=== PATIENT | female | born 1975 | race American Indian/Alaskan Native ===

== ENCOUNTER 2019-05-31 17:59 | Emergency (ER) | payer MEDICARE ==
--- NOTE | 2019-05-31 18:15 | Event Note ---
ED Screening Note Date of service: 05/31/19 Time: 18:14 ED Screening Note: 43 y o presents cc out of her psych meds x 3 weeks ago states she takes giodon, depakote, zoloft and risperidal, metformin and lisinopril denies SI/HI admits anxious This initial assessment/diagnostic orders/clinical plan/treatment(s) is/are subject to change based on patients health status, clinical progression and re- assessment by fellow clinical providers in the ED. Further treatment and workup at subsequent clinical providers discretion. Patient/guardian urged not to elope from the ED as their condition may be serious if not clinically assessed and managed. Initial orders include:
[2019-05-31 18:16] VITALS: BP 125/76
--- NOTE | 2019-05-31 19:32 | Emergency Department Report ---
HPI - General Chief Complaint: Medical Clearance Time Seen by Provider: 05/31/19 18:13 - HPI HPI: Room 5 The patient is a 43-year-old female presenting with chief complaint of needing medication refill. The patient states she was recently evicted from her transitional home where her medications were administered. The patient states the facility refused to give her her medications so she presents to the ED seeking prescriptions. Patient denies suicidal or homicidal ideation. The patient states she has not had any of her medication in the past 2 days. Location: [See above] Duration: [See above] Quality: [See above] Severity: [See above] Timing: [See above] Context: [See above] Modifying factors: [See above] Associated signs and symptoms: [see above] ED Past Medical Hx - Past Medical History Hx Psychiatric Treatment: Yes (Bipolar/schzophrenia) - Surgical History Past Surgical History?: No Additional Surgical History: unknown - Family History Family history: no significant - Social History Smoking Status: Current Every Day Smoker (2/3 pack per day) Substance Use Type: None (denies illicit drug use) - Medications Home Medications: Home Medications Medication Instructions Recorded Confirmed Last Taken Type risperiDONE [RisperDAL] 2 mg PO QDAY #30 tab 07/11/15 08/29/15 Unknown Rx Divalproex ER [Depakote ER] 500 mg PO BID #60 tablet 05/31/19 Unknown Rx Sertraline [Zoloft] 100 mg PO QDAY #30 tablet 05/31/19 Unknown Rx Ziprasidone [Geodon] 60 mg PO BID #60 capsule 05/31/19 Unknown Rx hydroCHLOROthiazide [Hctz] 12.5 mg PO QDAY #60 capsule 05/31/19 Unknown Rx metFORMIN [Glucophage] 500 mg PO BID #60 tablet 05/31/19 Unknown Rx risperiDONE [Risperdal] 2 mg PO QDAY #30 tablet 05/31/19 Unknown Rx ED Review of Systems ROS: Stated complaint: MEDICATION REFILL Other details as noted in HPI Constitutional: no symptoms reported Eyes: denies: eye pain ENT: denies: throat pain Respiratory: no symptoms reported Cardiovascular: denies: chest pain Endocrine: no symptoms reported Gastrointestinal: denies: abdominal pain Genitourinary: denies: dysuria Musculoskeletal: denies: back pain Neurological: denies: headache Psychiatric: denies: homicidal thoughts, suicidal thoughts Physical Exam - Physical Exam Vital Signs: Vital Signs 05/31/19 18:13 Temperature 98.5 F Pulse Rate 91 H Respiratory 18 Rate Blood Pressure 125/76 O2 Sat by Pulse 97 Oximetry Physical Exam: GENERAL: The patient is well-developed well-nourished female lying on stretcher not appearing to be in acute distress. [] HEENT: Normocephalic. Atraumatic. Extraocular motions are intact. Patient has moist mucous membranes. NECK: Supple. Trachea midline CHEST/LUNGS: Clear to auscultation. There is no respiratory distress noted. HEART/CARDIOVASCULAR: Regular. There is no tachycardia. There is no gallop rub or murmur. ABDOMEN: Abdomen is soft, nontender. Patient has normal bowel sounds. There is no abdominal distention. SKIN: There is no rash. There is no edema. There is no diaphoresis. NEURO: The patient is awake, alert, and oriented. The patient is cooperative. The patient has normal speech MUSCULOSKELETAL: There is no evidence of acute injury. ED Course Vital Signs 05/31/19 18:13 Temperature 98.5 F Pulse Rate 91 H Respiratory 18 Rate Blood Pressure 125/76 O2 Sat by Pulse 97 Oximetry ED Medical Decision Making - Differential Diagnosis medication refill Critical care attestation.: If time is entered above; I have spent that time in minutes in the direct care of this critically ill patient, excluding procedure time. ED Disposition Clinical Impression: Encounter for medication refill Disposition: DC-01 TO HOME OR SELFCARE Is pt being admited?: No Does the pt Need Aspirin: No Condition: Stable Additional Instructions: Return to the emergency department should you develop worsening symptoms, inability to tolerate food or liquids, high fever or any other concerns Prescriptions: Divalproex ER [Depakote ER] 500 mg PO BID #60 tablet Ziprasidone [Geodon] 60 mg PO BID #60 capsule metFORMIN [Glucophage] 500 mg PO BID #60 tablet hydroCHLOROthiazide [Hctz] 12.5 mg PO QDAY #60 capsule risperiDONE [Risperdal] 2 mg PO QDAY #30 tablet Sertraline [Zoloft] 100 mg PO QDAY #30 tablet Referrals: ALEXIA HAQ MD [Primary Care Provider] - 3-5 Days [facility] [Outside] - 3-5 Days Time of Disposition: 19:32
== END 2019-05-31 20:09 | disposition home or self-care (01) ==
LOC: ED 17:59
DX: F20.9 Schizophrenia, unspecified (principal); F17.210 Nicotine dependence, cigarettes, uncomplicated; F31.9 Bipolar disorder, unspecified; Z79.899 Other long term (current) drug therapy; Z88.8 Allergy status to other drugs, medicaments and biological substances; Z76.0 Encounter for issue of repeat prescription
CPT/HCPCS: 99281

== ENCOUNTER 2021-01-18 19:15 | Emergency (ER) | payer MEDICARE ==
--- NOTE | 2021-01-19 03:32 | Emergency Department Report ---
ED General Adult HPI - General Chief complaint: Psych Stated complaint: I feel unstable PUI?: No Time Seen by Provider: 01/19/21 01:51 Source: patient, EMS ( EMS documentation not available at time of chart dictation ), RN notes reviewed, old records reviewed Mode of arrival: Ambulatory Limitations: No Limitations - History of Present Illness Initial comments: The patient was evaluated in the emergency department for symptoms described in the history of present illness. He/she was evaluated in the context of the global COVID-19 pandemic, which necessitated consideration that the patient might be at risk for infection with the virus that causes COVID-19. Institutional protocols and algorithms that pertain to the evaluation of patients at risk for COVID-19 are in a state of rapid change based on information released by regulatory bodies including the CDC and federal and state organizations. These policies and algorithms were followed during the patient's care in the emergency department. Please note that these policies, procedures and recommendations changed on a rapid basis. Patient is a 45-year-old female, with a history of bipolar disorder, BMI of 47, who presents to the ER today with a request for psychiatric evaluation. She has not been on her medications for a few weeks. The patient states that she feels "unstable." She denies physical pain to myself. She denies homicidality and suicidality. She thinks she might be having hallucinations. She denies urinary symptoms. She denies recreational drug use. Apparently, the patient was in a supermarket or outside store, and contacted 911. The patient does not describe exacerbating or relieving factors to her symptomatology. -: Gradual, week(s) Improves with: none Worsens with: none Associated Symptoms: denies other symptoms - Related Data Home Medications Medication Instructions Recorded Confirmed Last Taken ARIPiprazole [Abilify Maintena] 300 mg IM QMONTH 01/19/21 01/19/21 Unknown Benztropine [Cogentin] 1 mg PO BID 01/19/21 01/19/21 Unknown lisinopriL [Lisinopril] 10 mg PO QDAY 01/19/21 01/19/21 Unknown risperiDONE [RisperDAL] 3 mg PO QDAY 01/19/21 01/19/21 Unknown Previous Rx's Medication Instructions Recorded Last Taken Type Divalproex Dr [Obed FLORES] 500 mg PO BID #30 tablet 01/19/21 Unknown Rx risperiDONE [RisperDAL] 2 mg PO BID #60 tablet 01/19/21 Unknown Rx Divalproex ER [DepaKOTE ER] 500 mg PO BID #60 tablet 01/22/21 Unknown Rx risperiDONE [RisperDAL] 1 mg PO TID #90 tablet 01/22/21 Unknown Rx Allergies Allergy/AdvReac Type Severity Reaction Status Date / Time olanzapine [From Zyprexa] Allergy Unknown Verified 01/19/21 01:57 ED Review of Systems ROS: Stated complaint: PSYCH Other details as noted in HPI Constitutional: other (Denies loss of taste and smell). denies: fever Eyes: denies: eye discharge ENT: denies: epistaxis Respiratory: denies: cough Cardiovascular: denies: chest pain, syncope Gastrointestinal: denies: abdominal pain, nausea, vomiting, hematemesis, melena, hematochezia Genitourinary: denies: dysuria Musculoskeletal: myalgia Neurological: denies: headache Psychiatric: denies: homicidal thoughts, suicidal thoughts ED Past Medical Hx - Past Medical History Previous Medical History?: Yes Hx Hypertension: Yes Hx Diabetes: Yes Hx Psychiatric Treatment: Yes (Bipolar/schzophrenia) - Surgical History Past Surgical History?: No Additional Surgical History: unknown - Social History Smoking Status: Current Some Day Smoker - Medications Home Medications: Home Medications Medication Instructions Recorded Confirmed Last Taken Type ARIPiprazole [Abilify Maintena] 300 mg IM QMONTH 01/19/21 01/19/21 Unknown History Benztropine [Cogentin] 1 mg PO BID 01/19/21 01/19/[address] [DepaKOTE DR] 500 mg PO BID #30 tablet 01/19/21 Unknown Rx lisinopriL [Lisinopril] 10 mg PO QDAY 01/19/21 01/19/21 Unknown History risperiDONE [RisperDAL] 2 mg PO BID #60 tablet 01/19/21 Unknown Rx risperiDONE [RisperDAL] 3 mg PO QDAY 01/19/21 01/19/21 Unknown History Divalproex ER [DepaKOTE ER] 500 mg PO BID #60 tablet 01/22/21 Unknown Rx risperiDONE [RisperDAL] 1 mg PO TID #90 tablet 01/22/21 Unknown Rx ED Physical Exam - General Limitations: No Limitations General appearance: alert, in no apparent distress, obese - Head Head exam: Present: atraumatic, normocephalic - Eye Eye exam: Present: normal appearance, EOMI. Absent: nystagmus - ENT ENT exam: Present: normal exam, normal orophraynx, mucous membranes moist, normal external ear exam - Neck Neck exam: Present: normal inspection, full ROM. Absent: tenderness, meningismus - Respiratory Respiratory exam: Present: normal lung sounds bilaterally. Absent: respiratory distress, wheezes, rales, rhonchi, stridor, decreased breath sounds - Cardiovascular Cardiovascular Exam: Present: regular rate, normal rhythm, normal heart sounds. Absent: bradycardia, tachycardia, irregular rhythm, systolic murmur, diastolic murmur, rubs, gallop - GI/Abdominal GI/Abdominal exam: Present: soft. Absent: distended, tenderness, guarding, rebound, rigid, pulsatile mass - Extremities Exam Extremities exam: Present: normal inspection, full ROM, pedal edema (1+ edema in the bilateral lower extremity), other (2+ pulses noted in the bilateral upper and lower extremities. There is no palpable cord. negative Homans sign. Muscular compartments are soft. The pelvis is stable.). Absent: calf tenderness - Back Exam Back exam: Present: normal inspection, full ROM. Absent: tenderness, CVA tenderness (R), CVA tenderness (L), paraspinal tenderness, vertebral tenderness - Neurological Exam Neurological exam: Present: alert, oriented X3, normal gait, other (No facial droop. Tongue midline. Extraocular movements intact bilaterally. Facial sensation intact to light touch in V1, V2, V3 distribution bilaterally. 5 and a 5 strength in 4 extremities. Sensation intact to light touch in 4 extremities.). Absent: motor sensory deficit - Psychiatric Psychiatric exam: Present: flat affect. Absent: suicidal ideation - Skin Skin exam: Present: warm, dry, intact, normal color. Absent: rash ED Course Vital Signs 01/19/21 01/19/21 01/19/21 01:30 09:22 20:59 Temperature 97.6 F 97.8 F 98 F Pulse Rate 94 H 100 H 95 H Respiratory 18 20 18 Rate Blood Pressure Blood Pressure 115/61 130/88 119/69 [Left] O2 Sat by Pulse 100 98 100 Oximetry 01/20/21 01/20/21 01/20/21 02:00 03:02 10:15 Temperature 98.0 F 97.5 F L Pulse Rate 77 91 H Respiratory 16 18 17 Rate Blood Pressure Blood Pressure 98/53 144/80 [Left] O2 Sat by Pulse 100 99 97 Oximetry 01/20/21 01/20/21 01/21/21 10:22 22:34 08:04 Temperature 97.3 F L 97.9 F Pulse Rate 91 H 87 86 Respiratory 18 20 Rate Blood Pressure 144/80 142/83 Blood Pressure 150/89 [Left] O2 Sat by Pulse 100 100 Oximetry 01/21/21 01/21/21 01/22/21 09:53 19:30 02:06 Temperature 98.3 F 97.9 F Pulse Rate 86 85 82 Respiratory 18 18 Rate Blood Pressure 150/89 Blood Pressure 94/64 112/60 [Left] O2 Sat by Pulse 99 99 Oximetry 01/22/21 08:54 Temperature 98.0 F Pulse Rate 89 Respiratory 18 Rate Blood Pressure Blood Pressure 126/85 [Left] O2 Sat by Pulse 98 Oximetry - Reevaluation(s) Reevaluation #1: 01/19/21 04:34 Differential diagnosis, including but not limited to: Obesity, BMI 47, bipolar disorder, general medical exam, medical clearance for psychiatric evaluation Assessment and plan: 45-year-old female with a flat affect, history of psychiatric disease, who presents to the ER today with a complaint of feeling unstable, and requesting a psychiatric evaluation. The patient does not present as homicidal or suicidal, I find it unlikely that the patient will be criteria for 1013 hold or involuntary hold. However, she is not been on her medication for 3 weeks. Appropriate laboratory studies have been ordered, thus far, they are unremarkable. Mental health evaluation, case management consultation requested, Covid screen ordered in case patient requires placement to a psychiatric facility. At this point in time, patient does not appear to have an immediate medical contraindication to psychiatric admission, evaluation, consultation and placemen t. However, if the psychiatry team recommends outpatient discharge, which I suspect may be a possibility, I think it would be reasonable medically to have the patient discharged and follow-up as an outpatient. The patient should follow-up with a primary care doctor, lose weight, she was snoring quite a bit when I went in to initially evaluate her, she may have a component of undiagnosed obstructive sleep apnea, which does not appear to be acutely decompensated at this time, and may benefit from outpatient sleep study. ED Medical Decision Making - Lab Data Result diagrams: 01/19/21 03:38 01/19/21 03:38 Vital Signs 01/19/21 01:30 Temperature 97.6 F Pulse Rate 94 H Respiratory 18 Rate Blood Pressure 115/61 [Left] O2 Sat by Pulse 100 Oximetry Lab Results 01/19/21 01/19/21 01/19/21 Range/Units 03:38 03:38 03:38 WBC 6.2 (4.5-11.0) K/mm3 RBC 4.22 (3.65-5.03) M/mm3 Hgb 11.2 (10.1-14.3) gm/dl Hct 33.9 (30.3-42.9) % MCV 80 (79-97) fl MCH 27 L (28-32) pg MCHC 33 (30-34) % RDW 15.8 H (13.2-15.2) % Plt Count 194 (140-440) K/mm3 Sodium 136 L (137-145) mmol/L Potassium 4.1 (3.6-5.0) mmol/L Chloride 100.8 (98-107) mmol/L Carbon Dioxide 31 H (22-30) mmol/L Anion Gap 8 mmol/L BUN 11 (7-17) mg/dL Creatinine 0.7 (0.6-1.2) mg/dL Estimated GFR > 60 ml/min BUN/Creatinine Ratio 16 % Glucose 94 (65-100) mg/dL Calcium 8.6 (8.4-10.2) mg/dL Total Bilirubin 0.40 (0.1-1.2) mg/dL AST 30 (5-40) units/L ALT 24 (7-56) units/L Alkaline Phosphatase 68 (35-129) units/L Total Protein 5.9 L (6.3-8.2) g/dL Albumin 3.2 L (3.9-5) g/dL Albumin/Globulin Ratio 1.2 % HCG, Quant < 2 (0-4) mIU/mL Salicylates (2.8-20.0) mg/dL Acetaminophen (10.0-30.0) ug/mL Valproic Acid (50-100) ug/mL Plasma/Serum Alcohol (0-0.07) % 04/21/21 04/21/21 04/21/21 Range/Units 03:38 03:38 03:38 WBC (4.5-11.0) K/mm3 RBC (3.65-5.03) M/mm3 Hgb (10.1-14.3) gm/dl Hct (30.3-42.9) % MCV (79-97) fl MCH (28-32) pg MCHC (30-34) % RDW (13.2-15.2) % Plt Count (140-440) K/mm3 Sodium (137-145) mmol/L Potassium (3.6-5.0) mmol/L Chloride (98-107) mmol/L Carbon Dioxide (22-30) mmol/L Anion Gap mmol/L BUN (7-17) mg/dL Creatinine (0.6-1.2) mg/dL Estimated GFR ml/min BUN/Creatinine Ratio % Glucose (65-100) mg/dL Calcium (8.4-10.2) mg/dL Total Bilirubin (0.1-1.2) mg/dL AST (5-40) units/L ALT (7-56) units/L Alkaline Phosphatase (35-129) units/L Total Protein (6.3-8.2) g/dL Albumin (3.9-5) g/dL Albumin/Globulin Ratio % HCG, Quant (0-4) mIU/mL Salicylates < 0.3 L (2.8-20.0) mg/dL Acetaminophen 5.0 L (10.0-30.0) ug/mL Valproic Acid < 2.8 L (50-100) ug/mL Plasma/Serum Alcohol < 0.01 (0-0.07) % Critical care attestation.: If time is entered above; I have spent that time in minutes in the direct care of this critically ill patient, excluding procedure time. ED Disposition Clinical Impression: BMI 45.0-49.9, adult, General medical exam, Bipolar 1 disorder, Medical clearance for psychiatric admission, COVID-19 Disposition: DC/TX-65 PSY HOSP/PSY UNIT Is pt being admited?: No Does the pt Need Aspirin: No Condition: Good Instructions: Managing Bipolar Disorder, COVID-19 Additional Instructions: We recommend that the patient lose weight, diet and exercise. We recommend that the patient follow-up with her primary care doctor, sleep specialist or personal attendant within the next month for evaluation for outpatient sleep study. Undiagnosed obstructive sleep apnea is a risk factor for heart attack, stroke, disability, paralysis, loss of quality of life. For the patient's convenience, we have listed local personal attendant for sleep study. Professional and Agency Contacts To help [facility] (23/04) MD Crisis Line: Suicide Prevention Line: Crisis Text Line: Text START to 375887 Emergency: 911 Outpatient COMMUNITY Behavioral Health Resources: [facility]: [facility] [address] [place], [place] [address] [place]: [facility] [address] [place] [address] Sunday thru Sunday - 8am - 5pm Call to schedule an assessment for mental health and substance abuse prog gisele AM[facility]: [facility] Address: [address] [place] [address] Sunday thru Sunday- 7am-2pm [facility] Address: [address] [place] [address] Sunday thru Sunday: 8:30AM-5PM HOMELESS RESOURCES: [facility] NEED HELP? If you are in need of help or know someone who does, please contact us at [email or web address] call , or come to our offices at [address] [place] [address], Sunday-Sunday beginning at 8AM. [facility] Males only Admission at 7am Sun to Sun Address: [address] [place] [address] Client Engagement [phone] Regular program admission occurs Sunday through Sunday at 7:00 amand operates on a first come, first serve basis.Because we cant anticipate program availability in advance andprogram spots are in high demand, we recommend arriving early. Space fills up fast! Next steps can include: Assignment to a [facility] program bed Connection to and placement in a partner program, or Referral to a partner agency [place]: EMILIA Gan Address: [address] [place] [address] How do I join the [facility] housing program? Our housing programs are offered based on availability. If you are looking to participate in our housing program, simply call [phone] to find out if we have available space. Since we do receive many calls, please allow up to 48 hours for one of our housing specialists to return your call. If we do not have vacancies, we suggest callingthe [facility] hotline at [facility] for additional housing options. [facility] [place] Admission at 4:30pm daily Address: [place] [address] [facility] Services Admission from 8am to 10am Daily No intake until 09/27/20 Address: [place] [address] [facility] WOMEN and FAMILY Admission Address: [place] [address]: [address] [DepaKORIZWAN FLORES] 500 mg PO BID #30 tablet Divalproex ER [DepaKOTE ER] 500 mg PO BID #60 tablet risperiDONE [RisperDAL] 1 mg PO TID #90 tablet risperiDONE [RisperDAL] 2 mg PO BID #60 tablet Referrals: SUKI BETANCOURT MD [Staff Physician] - as needed
[2021-01-19 03:51] LABS: Hematocrit 33.9 % (30.3-42.9); Hemoglobin 11.2 gm/dl (10.1-14.3); Mean Corpuscular HGB Conc 33 % (30-34); Mean Corpuscular Volume 80 fl (79-97); Platelet Count 194 K/mm3 (140-440); Red Blood Count 4.22 M/mm3 (3.65-5.03); Red Cell Distribution Width 15.8 % (13.2-15.2)
[2021-01-19 04:15] LABS: Alanine Aminotransferase 24 units/L (7-56); Albumin 3.2 g/dL (3.9-5); Blood Urea Nitrogen 11 mg/dL (7-17); Calcium 8.6 mg/dL (8.4-10.2); Hemolysis Index 3
[2021-01-19 04:25] LABS: BUN/Creatinine Ratio 16
--- NOTE | 2021-01-19 09:25 | Consultation ---
History of Present Illness - Reason for Consult Consult date: 01/19/21 Reason for consult: MHE Requesting physician: NORAH HOGAN - History of Present Psychiatric Illness Per ED Provider: Patient is a 45-year-old female, with a history of bipolar disorder, BMI of 47, who presents to the ER today with a request for psychiatric evaluation. She has not been on her medications for a few weeks. The patient states that she feels "unstable." She denies physical pain to myself. She denies homicidality and suicidality. She thinks she might be having hallucinations. She denies urinary symptoms. She denies recreational drug use. Apparently, the patient was in a supermarket or outside store, and contacted 911. The patient does not describe exacerbating or relieving factors to her symptomatology. PSYCH HPI Patient is a single currently unemployed and homeless -[place] female who states that she is to [place], with past psychiatric history of bipolar and ADHD who presented to the the ED because of not knowing what to do over to go. Patient reports she just got released from nursing home over previous situation at her previous place of residence and that she used to live with her brother, and she is unable to go back and she did not know what to do her verti go so she came here. Patient states that she wants to go to [facility] and also get restarted on her medications. Patient denies being suicidal homicidal_denies hearing voices. Patient endorses having family members here in [place] but does not want anything to do with them. PAST PSYCHIATRIC HISTORY Diagnoses: Bipolar ADHD Suicide attempts or Self-harm behavior: None reported Prior psychiatric hospitalizations: yes Substance Abuse history: None reported Previous psychiatric medications tried: Depakote, Risperdol and Abilify Outpatient treatment: None reported PAST MEDICAL HISTORY: None reported Family Psychiatric History: None reported or documented SOCIAL HISTORY Marital Status: Single Living Arrangements: Homeless Employment Status: Unemployed Access to guns/weapons: None reported Education: [employer] [facility] [place] History of Abuse: None reported Legal History: None reported REVIEW OF SYSTEMS Constitutional: Negative for weight loss ENT: Negative for stridor Respiratory: Negative for cough or hemoptysis All other systems reviewed and are negative MENTAL STATUS EXAMINATION General Appearance and Behavior: Age appropriate, good hygiene, wearing appropriate clothes, good eye contact, cooperative polite with questioning. Cooperation: Participating/engaged Psychomotor Behavior: unremarkable and within normal limits Mood: Good Affect and affective range: congruent with mood Thought Process: Fluent/Logical, Thought Content: Within reality, Speech: Normal volume, Regular rate and rhythm, Intellectual Functioning: Average Suicidal Ideation: Denies SI Homicidal Ideation: Denies HI Impulse Control: Unimpaired Insight and Judgment: Normal insight and judgment, Memory: Normal, Attention: Normal, Orientation: Alert, oriented, Assessment and Plan - Psychiatric problem (1) Bipolar 1 disorder Current Visit: Yes Status: Acute MEDICATIONS: Risks, benefits and alternatives of medications discussed with the patient, questions answered and consent obtained from patient. PSYCHOTHERAPY: Supportive psychotherapy provided MEDICAL: Per primary team DELIRIUM PRECAUTIONS: Please re-orient patient frequently, keep lights on during the day, and minimize benzodiazepines and opiates as these medications could worsen patient's confusion. 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 Case discussed with Dr. Jordan who agrees with current disposition LEGAL STATUS: 1013 FOLLOW-UP: Will follow Thank you for the consult. Please contact with any questions and/or concerns. Medications and Allergies Allergies Allergy/AdvReac Type Severity Reaction Status Date / Time olanzapine [From Zyprexa] Allergy Unknown Verified 01/19/21 01:57 Home Medications Medication Instructions Recorded Confirmed Last Taken Type ARIPiprazole [Abilify Maintena] 300 mg IM QMONTH 01/19/21 01/19/21 Unknown History Benztropine [Cogentin] 1 mg PO BID 01/19/21 01/19/[address] [DepaKOTE DR] 500 mg PO BID #30 tablet 01/19/21 Unknown Rx Divalproex ER [DepaKOTE ER] 500 mg PO BID 01/19/21 01/19/21 Unknown History lisinopriL [Lisinopril] 10 mg PO QDAY 01/19/21 01/19/21 Unknown History risperiDONE [RisperDAL] 2 mg PO BID #60 tablet 01/19/21 Unknown Rx risperiDONE [RisperDAL] 3 mg PO QDAY 01/19/21 01/19/21 Unknown History Mental Status Exam - Vital signs Last Vital Signs Temp 97.8 F 01/19/21 09:22 Pulse 100 H 01/19/21 09:22 Resp 20 01/19/21 09:22 BP 130/88 01/19/21 09:22 Pulse Ox 98 01/19/21 09:22 Results Result Diagrams: 01/19/21 03:38 01/19/21 03:38 Abnormal lab results 01/19/21 01/19/21 01/19/21 Range/Units 03:38 03:38 03:38 MCH 27 L (28-32) pg RDW 15.8 H (13.2-15.2) % Sodium 136 L (137-145) mmol/L Carbon Dioxide 31 H (22-30) mmol/L Total Protein 5.9 L (6.3-8.2) g/dL Albumin 3.2 L (3.9-5) g/dL Salicylates < 0.3 L (2.8-20.0) mg/dL Acetaminophen (10.0-30.0) ug/mL Valproic Acid < 2.8 L (50-100) ug/mL 01/19/21 Range/Units 03:38 MCH (28-32) pg RDW (13.2-15.2) % Sodium (137-145) mmol/L Carbon Dioxide (22-30) mmol/L Total Protein (6.3-8.2) g/dL Albumin (3.9-5) g/dL Salicylates (2.8-20.0) mg/dL Acetaminophen 5.0 L (10.0-30.0) ug/mL Valproic Acid (50-100) ug/mL All other labs normal. Assessment and Plan - Psychiatric problem (1) Bipolar 1 disorder Current Visit: Yes Status: Acute
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
[2021-01-19] MEDS: LISINOPRIL 10 MG TAB PO SCH (11:16)
[2021-01-19] MEDS: risperiDONE 1 MG TAB PO SCH ×2 (15:00→22:16)
[2021-01-19] MEDS: VALPROIC ACID 250 MG CAP PO SCH ×2 (15:00→22:16)
[2021-01-20 04:57] LABS: Bilirubin,Urine NEG (Negative); Blood,Urine NEG (Negative); Color,Urine Yellow (Yellow); Protein,Urine <15 mg/dL mg/dL (Negative); WBC,Urine < 1.0 /HPF (0.0-6.0)
[2021-01-20 05:13] LABS: Amphetamine Screen,Urine Negative; Benzodiazepines Screen,Urine Negative; Cannabinoid Screen,Urine Negative; Cocaine Screen,Urine Negative; Methadone Screen,Urine Negative; Opiate Screen,Urine Negative
[2021-01-20] MEDS: LISINOPRIL 10 MG TAB PO SCH (10:22)
[2021-01-20] MEDS: risperiDONE 1 MG TAB PO SCH ×2 (10:22→22:47)
[2021-01-20] MEDS: VALPROIC ACID 250 MG CAP PO SCH ×2 (10:22→22:47)
[2021-01-20] MEDS ORDERED: ZIPRASIDONE MESYLATE 20 MG VIAL IM ONE (11:00)
[2021-01-20] MEDS ORDERED: WATER FOR INJ Sterile (PF) 10 ML ONE (11:03)
--- NOTE | 2021-01-20 11:51 | Event Note ---
S: "I I am okay." O: Patient is hyperverbal, reading the Bible. Talking to persons not present A: acute etta with psychosis, hx of bipolar disorder, HTN P: Awaiting treatment recommendations mental health team
--- NOTE | 2021-01-21 09:34 | Progress Note ---
Subjective - Reason for Consult Consult date: 01/21/21 Reason for consult: psychosis - Chief Complaint Chief complaint: Per Nurse Note: talking up in room , talking to herself, pt responding to internal stimuli The patient was seen today, she is a/o x 3. She says she's been off her meds. She is inquiring about a intermediate. The patient denies SI/HI or hallucinations of any kind, but as I'm leaving another patient's room, she is singing out loud and talking to herself. When asking the patient was she okay, she replies "yes, I'm talking to the [place] watching over me." She continues to talk to herself. REVIEW OF SYSTEMS Constitutional: Negative for weight loss ENT: Negative for stridor Respiratory: Negative for cough or hemoptysis All other systems reviewed and are negative MENTAL STATUS EXAMINATION General Appearance and Behavior: Age appropriate, good hygiene, wearing appropriate clothes, good eye contact, cooperative polite with questioning. Cooperation: Participating/engaged Psychomotor Behavior: unremarkable and within normal limits Mood: Good Affect and affective range: congruent with mood Thought Process: illogical Thought Content: responding to internal stimuli Speech: Normal volume, Regular rate and rhythm, Intellectual Functioning: Average Suicidal Ideation: Denies SI Homicidal Ideation: Denies HI Hallucinations: A/V Delusions: Yes Impulse Control: Unimpaired Insight and Judgment: Normal insight and judgment, Memory: Normal, Attention: Normal, Orientation: Alert, oriented, Assessment and Plan (1) Bipolar 1 disorder Current Visit: Yes Status: Acute TREATMENT MEDICATIONS: Increase Risperidone 1mg po TID Risks, benefits and alternatives of medications discussed with the patient, questions answered and consent obtained from patient. PSYCHOTHERAPY: Supportive psychotherapy provided MEDICAL: Per primary team DELIRIUM PRECAUTIONS: Please re-orient patient frequently, keep lights on during the day, and minimize benzodiazepines and opiates as these medications could worsen patient's confusion. 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 Case discussed with Dr. Jordan who agrees with current disposition LEGAL STATUS: 1013 FOLLOW-UP: Will follow Thank you for the consult. Please contact with any questions and/or concerns. Mental Status Exam - Vital signs Last Vital Signs Temp 97.9 F 01/21/21 08:04 Pulse 86 01/21/21 08:04 Resp 20 01/21/21 08:04 BP 150/89 01/21/21 08:04 Pulse Ox 100 01/21/21 08:04
[2021-01-21] MEDS: VALPROIC ACID 250 MG CAP PO SCH ×2 (09:43→21:54)
[2021-01-21] MEDS: LISINOPRIL 10 MG TAB PO SCH ×2 (09:44→09:53)
[2021-01-21] MEDS: risperiDONE 1 MG TAB PO SCH ×3 (09:46→21:00)
--- NOTE | 2021-01-21 10:45 | Event Note ---
S: "I am okay." O: Patient is calm. Resting. Stable vital signs A: acute etta with psychosis, hx of bipolar disorder, HTN P: Awaiting treatment recommendations mental health team
[2021-01-22 08:55] VITALS: BP 126/85
[2021-01-22] MEDS: risperiDONE 1 MG TAB PO SCH (09:00)
--- NOTE | 2021-01-22 10:14 | Progress Note ---
Subjective - Reason for Consult Consult date: 01/22/21 Reason for consult: psychosis - Chief Complaint Chief complaint: Per Nurse Note: 0700 Received report from Becky RN, pt resting quietly on recliner, resp even and non labored, no acute distress noted, able to make needs known, no complaints of voiced at this time, awake and alert, ambulates as needed to restroom, Covid + pt, isolation protocol in place. The patient was seen today, she is a/o x 3. She is in her room watching t.v. The patient says she's doing "good now that she's on her meds." She denies hallucinations. She states "I talk to myself sometimes because I'm bored in here." She says "I really do feel a lot better." She denies SI/HI. REVIEW OF SYSTEMS Constitutional: Negative for weight loss ENT: Negative for stridor Respiratory: Negative for cough or hemoptysis All other systems reviewed and are negative MENTAL STATUS EXAMINATION General Appearance and Behavior: Age appropriate, good hygiene, wearing appropriate clothes, good eye contact, cooperative polite with questioning. Cooperation: Participating/engaged Psychomotor Behavior: unremarkable and within normal limits Mood: Good Affect and affective range: congruent with mood Thought Process: goal oriented Thought Content: responding to internal stimuli Speech: Normal volume, Regular rate and rhythm, Intellectual Functioning: Average Suicidal Ideation: Denies SI Homicidal Ideation: Denies HI Hallucinations: Denies Delusions: None elicited Impulse Control: Unimpaired Insight and Judgment: Normal insight and judgment, Memory: Normal, Attention: Normal, Orientation: Alert, oriented, Assessment and Plan (1) Bipolar 1 disorder Current Visit: Yes Status: Acute TREATMENT d/c 1013 MEDICATIONS: Risperidone 1mg po TID, Depakote ER 500mg BID Risks, benefits and alternatives of medications discussed with the patient, questions answered and consent obtained from patient. PSYCHOTHERAPY: Supportive psychotherapy provided MEDICAL: Per primary team DELIRIUM PRECAUTIONS: Please re-orient patient frequently, keep lights on during the day, and minimize benzodiazepines and opiates as these medications could worsen patient's confusion. 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 Case discussed with Dr. Jordan who agrees with current disposition FOLLOW-UP: will sign off Thank you for the consult. Please contact with any questions and/or concerns. Mental Status Exam - Vital signs Last Vital Signs Temp 98.0 F 01/22/21 08:54 Pulse 89 01/22/21 08:54 Resp 18 01/22/21 08:54 BP 126/85 01/22/21 08:54 Pulse Ox 98 01/22/21 08:54
--- NOTE | 2021-01-22 10:24 | Event Note ---
Date: 01/22/21 Vital Signs - 24 hr 01/21/21 01/22/21 01/22/21 19:30 02:06 08:54 Temperature 98.3 F 97.9 F 98.0 F Pulse Rate 85 82 89 Respiratory 18 18 18 Rate Blood Pressure 94/64 112/60 126/85 [Left] O2 Sat by Pulse 99 99 98 Oximetry This patient was seen ambulatory in room #15. She was standing quietly watching television. The patient initially was placed on a 1013 and made in ED hold secondary to acute psychosis from her bipolar disorder. Her labs have been reviewed thus far and only remarkable for being positive for COVID-19. She appears asymptomatic. The positive test was found on 01/19/2021. A repeat test has been ordered for today. Her vital signs for the past 24 hours are listed a kalina and appear reassuring including being afebrile and no hypoxia. I spoke with the psychiatric nurse who says that there have been no significant complaints or events either this morning or signed out to her from overnight. She has already been seen by the psychiatric team today and it is the recommendation to continue the 1013 and ED hold for inpatient stabilization. It appears that her home medications have been reconciled and she is on psychiatric medications as per the psychiatric team.
[2021-01-22] MEDS: VALPROIC ACID 250 MG CAP PO SCH (11:13)
[2021-01-22] MEDS: LISINOPRIL 10 MG TAB PO SCH (11:14)
[2021-01-22] MEDS ORDERED: LORazepam 2 MG/ML VIAL IM PRN (16:24)
[2021-01-22] MEDS ORDERED: ACETAMINOPHEN 325 MG TAB PO PRN (16:24)
[2021-01-22] MEDS ORDERED: ONDANSETRON 4 MG ODT TAB PO PRN (16:24)
[2021-01-23] MEDS ORDERED: LISINOPRIL 10 MG TAB PO SCH (10:00)
== END 2021-01-22 12:57 ==
LOC: ED 19:15 → EEVIPCON 19:15 → ED 01-22 12:57
DX: U07.1 COVID-19 (principal); F25.0 Schizoaffective disorder, bipolar type; Z68.42 Body mass index [BMI] 45.0-49.9, adult; Z00.00 Encounter for general adult medical examination without abnormal findings; Z04.6 Encounter for general psychiatric examination, requested by authority; I10 Essential (primary) hypertension; E11.9 Type 2 diabetes mellitus without complications; F17.200 Nicotine dependence, unspecified, uncomplicated; Z79.899 Other long term (current) drug therapy
CPT/HCPCS: 36415; 80053; 80164; 80178; 84702; 85027; 99284; J3486; U0003; 80320; G0480

== ENCOUNTER 2021-02-03 16:53 | Emergency (ER) | payer MEDICARE ==
[2021-02-03 18:03] LABS: Basophils % (Auto) 0.4 % (0.0-1.8); Eosinophils % (Auto) 0.3 % (0.0-4.3); Hemoglobin 11.4 gm/dl (10.1-14.3); Lymphocytes # (Auto) 1.9 K/mm3 (1.2-5.4); Lymphocytes % (Auto) 22.6 % (13.4-35.0); Mean Corpuscular HGB Conc 32 % (30-34); Mean Corpuscular Volume 80 fl (79-97); Monocytes # (Auto) 0.9 K/mm3 (0.0-0.8); Monocytes % (Auto) 10.4 % (0.0-7.3); Platelet Count 205 K/mm3 (140-440); Red Blood Count 4.36 M/mm3 (3.65-5.03); Red Cell Distribution Width 15.7 % (13.2-15.2)
[2021-02-03 18:16] LABS: Blood Urea Nitrogen 8 mg/dL (7-17); Calcium 9.1 mg/dL (8.4-10.2); Hemolysis Index 8
[2021-02-03 18:17] LABS: BUN/Creatinine Ratio 11
--- NOTE | 2021-02-03 19:17 | Emergency Department Report ---
ED General Adult HPI - General Chief complaint: Psych Stated complaint: MENTAL HEALTH Time Seen by Provider: 02/03/21 19:12 Source: patient Mode of arrival: Ambulatory Limitations: Other - History of Present Illness Initial comments: The patient presents to the emergency department for not feeling well. Patient was dropped off by her brother who is no longer in the emergency department. Upon me entering the room the patient would not answer questions or speak with me. Patient told the nurse that she takes Depakote but not the diagnosis that requires it. Patient was recently seen for psychiatric issues. -: unknown Consistency: constant Improves with: none Worsens with: none Associated Symptoms: denies other symptoms Treatments Prior to Arrival: none - Related Data Home Medications Medication Instructions Recorded Confirmed Last Taken ARIPiprazole [Abilify Maintena] 300 mg IM QMONTH 01/19/21 01/19/21 Unknown Benztropine [Cogentin] 1 mg PO BID 01/19/21 01/19/21 Unknown lisinopriL [Lisinopril] 10 mg PO QDAY 01/19/21 01/19/21 Unknown risperiDONE [RisperDAL] 3 mg PO QDAY 01/19/21 01/19/21 Unknown Previous Rx's Medication Instructions Recorded Last Taken Type Divalproex Dr [DepaKOTE DR] 500 mg PO BID #30 tablet 01/19/21 Unknown Rx risperiDONE [RisperDAL] 2 mg PO BID #60 tablet 01/19/21 Unknown Rx Divalproex ER [DepaKOTE ER] 500 mg PO BID #60 tablet 01/22/21 Unknown Rx risperiDONE [RisperDAL] 1 mg PO TID #90 tablet 01/22/21 Unknown Rx Allergies Allergy/AdvReac Type Severity Reaction Status Date / Time olanzapine [From Zyprexa] Allergy Unknown Verified 01/19/21 01:57 ED Review of Systems ROS: Stated complaint: MENTAL HEALTH Other details as noted in HPI Comment: Unobtainable due to pts medical conditions (The patient refuses to answer questions) ED Past Medical Hx - Past Medical History Previous Medical History?: Yes Hx Hypertension: Yes Hx Diabetes: Yes Hx Psychiatric Treatment: Yes (Bipolar/schzophrenia) - Surgical History Additional Surgical History: unknown - Social History Smoking Status: Never Smoker Substance Use Type: None - Medications Home Medications: Home Medications Medication Instructions Recorded Confirmed Last Taken Type ARIPiprazole [Abilify Maintena] 300 mg IM QMONTH 01/19/21 01/19/21 Unknown History Benztropine [Cogentin] 1 mg PO BID 01/19/21 01/19/[address] [DepaKOTE DR] 500 mg PO BID #30 tablet 01/19/21 Unknown Rx lisinopriL [Lisinopril] 10 mg PO QDAY 01/19/21 01/19/21 Unknown History risperiDONE [RisperDAL] 2 mg PO BID #60 tablet 01/19/21 Unknown Rx risperiDONE [RisperDAL] 3 mg PO QDAY 01/19/21 01/19/21 Unknown History Divalproex ER [DepaKOTE ER] 500 mg PO BID #60 tablet 01/22/21 Unknown Rx risperiDONE [RisperDAL] 1 mg PO TID #90 tablet 01/22/21 Unknown Rx ED Physical Exam - General Limitations: Other General appearance: alert, in no apparent distress - Head Head exam: Present: atraumatic, normocephalic - Eye Eye exam: Present: normal appearance, PERRL - ENT ENT exam: Present: mucous membranes moist - Respiratory Respiratory exam: Present: normal lung sounds bilaterally. Absent: respiratory distress - Cardiovascular Cardiovascular Exam: Present: regular rate, normal rhythm - GI/Abdominal GI/Abdominal exam: Present: soft. Absent: distended, tenderness - Neurological Exam Neurological exam: Present: alert, other (The patient would not cooperate with neurological exam) - Psychiatric Psychiatric exam: Present: other (The patient would not cooperate with a psychiatric exam) - Skin Skin exam: Present: warm, dry, intact, normal color. Absent: rash ED Course Vital Signs 02/03/21 17:21 Temperature 98.7 F Pulse Rate 102 H Respiratory 22 Rate Blood Pressure 156/79 O2 Sat by Pulse 98 Oximetry ED Medical Decision Making - Lab Data Result diagrams: 02/03/21 17:43 02/03/21 17:43 Lab Results 02/03/21 02/03/21 02/03/21 Range/Units 17:43 17:43 17:43 WBC (4.5-11.0) K/mm3 RBC (3.65-5.03) M/mm3 Hgb (10.1-14.3) gm/dl Hct (30.3-42.9) % MCV (79-97) fl MCH (28-32) pg MCHC (30-34) % RDW (13.2-15.2) % Plt Count (140-440) K/mm3 Lymph % (Auto) (13.4-35.0) % Barton % (Auto) (0.0-7.3) % Eos % (Auto) (0.0-4.3) % Baso % (Auto) (0.0-1.8) % Lymph # (Auto) (1.2-5.4) K/mm3 Barton # (Auto) (0.0-0.8) K/mm3 Eos # (Auto) (0.0-0.4) K/mm3 Baso # (Auto) (0.0-0.1) K/mm3 Seg Neutrophils % (40.0-70.0) % Seg Neutrophils # (1.8-7.7) K/mm3 Sodium 137 (137-145) mmol/L Potassium 3.6 (3.6-5.0) mmol/L Chloride 102.2 (98-107) mmol/L Carbon Dioxide 26 (22-30) mmol/L Anion Gap 12 mmol/L BUN 8 (7-17) mg/dL Creatinine 0.7 (0.6-1.2) mg/dL Estimated GFR > 60 ml/min BUN/Creatinine Ratio 11 % Glucose 117 H (65-100) mg/dL Calcium 9.1 (8.4-10.2) mg/dL Salicylates < 0.3 L (2.8-20.0) mg/dL Acetaminophen 5.0 L (10.0-30.0) ug/mL Valproic Acid (50-100) ug/mL Plasma/Serum Alcohol (0-0.07) % 02/03/21 02/03/21 02/03/21 Range/Units 17:43 17:43 19:21 WBC 8.2 (4.5-11.0) K/mm3 RBC 4.36 (3.65-5.03) M/mm3 Hgb 11.4 (10.1-14.3) gm/dl Hct 35.0 (30.3-42.9) % MCV 80 (79-97) fl MCH 26 L (28-32) pg MCHC 32 (30-34) % RDW 15.7 H (13.2-15.2) % Plt Count 205 (140-440) K/mm3 Lymph % (Auto) 22.6 (13.4-35.0) % Barton % (Auto) 10.4 H (0.0-7.3) % Eos % (Auto) 0.3 (0.0-4.3) % Baso % (Auto) 0.4 (0.0-1.8) % Lymph # (Auto) 1.9 (1.2-5.4) K/mm3 Barton # (Auto) 0.9 H (0.0-0.8) K/mm3 Eos # (Auto) 0.0 (0.0-0.4) K/mm3 Baso # (Auto) 0.0 (0.0-0.1) K/mm3 Seg Neutrophils % 66.3 (40.0-70.0) % Seg Neutrophils # 5.5 (1.8-7.7) K/mm3 Sodium (137-145) mmol/L Potassium (3.6-5.0) mmol/L Chloride (98-107) mmol/L Carbon Dioxide (22-30) mmol/L Anion Gap mmol/L BUN (7-17) mg/dL Creatinine (0.6-1.2) mg/dL Estimated GFR ml/min BUN/Creatinine Ratio % Glucose (65-100) mg/dL Calcium (8.4-10.2) mg/dL Salicylates (2.8-20.0) mg/dL Acetaminophen (10.0-30.0) ug/mL Valproic Acid < 2.8 L (50-100) ug/mL Plasma/Serum Alcohol < 0.01 (0-0.07) % - Medical Decision Making ED hold placed Awaiting urinalysis for medical clearance Awaiting mental health evaluation Critical care attestation.: If time is entered above; I have spent that time in minutes in the direct care of this critically ill patient, excluding procedure time. ED Disposition Clinical Impression: Schizophrenia Disposition: [id number]/[id number] PSY HOSP/PSY UNIT Is pt being admited?: No Does the pt Need Aspirin: No Condition: Stable Referrals: PRIMARY CARE, [Primary Care Provider] - 3-5 Days
[2021-02-03] MEDS ORDERED: ZIPRASIDONE MESYLATE 20 MG VIAL IM ONE (23:01)
[2021-02-03] MEDS ORDERED: WATER FOR INJ Sterile (PF) 10 ML ONE (23:01)
[2021-02-04] MEDS ORDERED: SODIUM CHLORIDE 0.9% 1000 ML 1,000 ML ONE (06:09)
--- NOTE | 2021-02-04 09:10 | Consultation ---
History of Present Illness - Reason for Consult Consult date: 02/04/21 Reason for consult: MHE Requesting physician: VICENTE FLEMING - History of Present Psychiatric Illness Per ED Provider: The patient presents to the emergency department for not feeling well. Patient was dropped off by her brother who is no longer in the emergency department. Upon me entering the room the patient would not answer questions or speak with me. Patient told the nurse that she takes Depakote but not the diagnosis that requires it. Patient was recently seen for psychiatric issues. PSYCH HPI Patient is a 45 year old single currently unemployed -[place] female who resides with family with PMHx of Bipolar, ADHD who was dropped off to the emergency room by family without supporting HPI. This AM patient is alert and awake but unresponsive to commands, and presents with a flat affect, currenlty in isolation. Off note, patient was recently diagnosed with covid during her last ED psych encounter, prior to discharge, she was alert and oriented x4 without any psychiatric episodes or behv disturbances. PAST PSYCHIATRIC HISTORY Diagnoses: Bipolar ADHD Suicide attempts or Self-harm behavior: None reported Prior psychiatric hospitalizations: yes Substance Abuse history: None reported Previous psychiatric medications tried: Depakote, Risperdol and Abilify Outpatient treatment: None reported PAST MEDICAL HISTORY: None reported Family Psychiatric History: None reported or documented SOCIAL HISTORY Marital Status: Single Living Arrangements: Homeless Employment Status: Unemployed Access to guns/weapons: None reported Education: [employer] – [place] History of Abuse: None reported Legal History: None reported REVIEW OF SYSTEMS Constitutional: Negative for weight loss ENT: Negative for stridor Respiratory: Negative for cough or hemoptysis All other systems reviewed and are negative MENTAL STATUS EXAMINATION General Appearance and Behavior: Age appropriate, good hygiene, wearing appropriate clothes, good eye contact, uncooperative with questioning. Cooperation: Withdrawn Psychomotor Behavior: unremarkable and within normal limits Mood: Neutral Affect and affective range: Flat Thought Process:N/A Thought Content: N/A Speech: Normal volume, Regular rate and rhythm Intellectual Functioning: N/A Suicidal Ideation: N/A l Homicidal Ideation: N/A Impulse Control: Impaired Insight and Judgment: Impaired Memory: N/A Attention: Normal, Orientation: Alert Assessment and Plan - Psychiatric problem (1) Bipolar 1 disorder Current Visit: Yes Status: Acute MEDICATIONS: Hold off antipsychotics, will start patient on Ativan Q4hrs up to 3 doses. Risks, benefits and alternatives of medications discussed with the patient, questions answered and consent obtained from patient. PSYCHOTHERAPY: Supportive psychotherapy provided MEDICAL: Per primary team DELIRIUM PRECAUTIONS: Please re-orient patient frequently, keep lights on during the day, and minimize benzodiazepines and opiates as these medications could worsen patient's confusion. ENVIRONMENTAL STUDIES PROGRAM DIRECTOR: DISPOSITION: Do Recommend acute inpatient psychiatric hospitalization at this time. Case discussed with Dr. Jordan who agrees with current disposition LEGAL STATUS: 1013 FOLLOW-UP: Will follow Thank you for the consult. Please contact with any questions and/or concerns. Medications and Allergies Allergies Allergy/AdvReac Type Severity Reaction Status Date / Time olanzapine [From Zyprexa] Allergy Unknown Verified 01/19/21 01:57 Home Medications Medication Instructions Recorded Confirmed Last Taken Type ARIPiprazole [Abilify Maintena] 300 mg IM QMONTH 01/19/21 01/19/21 Unknown History Benztropine [Cogentin] 1 mg PO BID 01/19/21 01/19/[address] [DepaKOTE DR] 500 mg PO BID #30 tablet 01/19/21 Unknown Rx lisinopriL [Lisinopril] 10 mg PO QDAY 01/19/21 01/19/21 Unknown History risperiDONE [RisperDAL] 2 mg PO BID #60 tablet 01/19/21 Unknown Rx risperiDONE [RisperDAL] 3 mg PO QDAY 01/19/21 01/19/21 Unknown History Divalproex ER [DepaKOTE ER] 500 mg PO BID #60 tablet 01/22/21 Unknown Rx risperiDONE [RisperDAL] 1 mg PO TID #90 tablet 01/22/21 Unknown Rx Mental Status Exam - Vital signs Last Vital Signs Temp 98.0 F 02/04/21 09:00 Pulse 89 02/04/21 09:00 Resp 18 02/04/21 09:00 BP 179/93 02/04/21 09:00 Pulse Ox 97 02/04/21 09:00 Results Result Diagrams: 02/03/21 17:43 02/03/21 17:43 Abnormal lab results 02/03/21 02/03/21 02/03/21 Range/Units 17:43 17:43 17:43 MCH (28-32) pg RDW (13.2-15.2) % Burt % (Auto) (0.0-7.3) % Burt # (Auto) (0.0-0.8) K/mm3 Glucose 117 H (65-100) mg/dL Salicylates < 0.3 L (2.8-20.0) mg/dL Acetaminophen 5.0 L (10.0-30.0) ug/mL Valproic Acid (50-100) ug/mL 02/03/21 02/03/21 Range/Units 17:43 19:21 MCH 26 L (28-32) pg RDW 15.7 H (13.2-15.2) % Burt % (Auto) 10.4 H (0.0-7.3) % Burt # (Auto) 0.9 H (0.0-0.8) K/mm3 Glucose (65-100) mg/dL Salicylates (2.8-20.0) mg/dL Acetaminophen (10.0-30.0) ug/mL Valproic Acid < 2.8 L (50-100) ug/mL All other labs normal.
--- NOTE | 2021-02-04 10:48 | Emergency Department Report ---
Blank Doc - Documentation Documentation: This patient presented to the emergency department yesterday with what appears to be some acute psychosis. Labs have been mostly unremarkable except for subtherapeutic valproic acid, if this is in fact a medication the patient takes regularly. There are multiple different medications listed in the reconciliation. However she has been seen by the psychiatric midlevel provider who has placed the patient on IM Ativan as needed, but has not put any orders for any other psychiatric medications at this time. I will leave the decision for the psychiatric medications for the psychiatric team. I will restart the patient's blood pressure medication. No events overnight. We are waiting for a urinalysis to complete the medical clearance. The vital signs listed below have been reassuring. Vital Signs - 24 hr 02/03/21 02/04/21 02/04/21 17:21 03:59 09:00 Temperature 98.7 F 98.0 F Pulse Rate 102 H 89 Respiratory 22 16 18 Rate Blood Pressure 156/79 Blood Pressure 179/93 [Left] O2 Sat by Pulse 98 98 97 Oximetry
[2021-02-04] MEDS ORDERED: LISINOPRIL 10 MG TAB PO SCH (11:00)
[2021-02-04] MEDS: LORazepam 2 MG/ML VIAL IM SCH ×4 (11:40→22:08)
[2021-02-04 11:49] LABS: Bacteria,Urine 1+ /HPF (Negative); Bilirubin,Urine NEG (Negative); Blood,Urine LG (Negative); Color,Urine Yellow (Yellow); Mucus,Urine FEW /HPF; Protein,Urine <15 mg/dL mg/dL (Negative); Urobilinogen,Urine < 2.0 mg/dL (<2.0)
[2021-02-04 12:05] LABS: Amphetamine Screen,Urine Negative; Benzodiazepines Screen,Urine Negative; Cannabinoid Screen,Urine Negative; Cocaine Screen,Urine Negative; Methadone Screen,Urine Negative; Opiate Screen,Urine Negative
[2021-02-04 23:19] VITALS: BP 165/87
== END 2021-02-05 01:00 ==
LOC: ED 16:53
DX: F20.9 Schizophrenia, unspecified (principal); Z20.822 Contact with and (suspected) exposure to COVID-19; I10 Essential (primary) hypertension; E11.9 Type 2 diabetes mellitus without complications; Z79.899 Other long term (current) drug therapy; Z88.8 Allergy status to other drugs, medicaments and biological substances
CPT/HCPCS: 36415; 80048; 80164; 80307; 81001; 82962; 85025; 96372; 99284; J2060; J3486; J7030; U0003; 80320; G0480

== ENCOUNTER 2021-02-04 16:05 | Inpatient (IN) | payer MEDICARE ==
[2021-02-04] MEDS ORDERED: LORazepam 2 MG/ML VIAL IM PRN (23:21)
[2021-02-04] MEDS ORDERED: HALOPERIDOL 5 MG TAB PO PRN (23:22)
--- NOTE | 2021-02-05 07:45 | History and Physical Report ---
GP History & Physical - History of Present Illness Date of admission: 02/04/21 Date of Examination: 02/05/21 Reason for Admission: Danger to self, Failure of Outpatient Treatment History of Present Illness: Chloe Whelan is a 45y/o female patient who is known to me from a previous visit. It is documented the patient was dropped off by relatives and was acutely psychotic. During my interview she is walking around, she is hyperverbal and paranoid. She has no sense of personal space. She is walking up close to me, and interruptive. The patient tells me that her family is in and out of her house and has her credit cards and credentials. She says "there's really nothing wrong with me and I don't want to be here too long." She denies SI/HI or hallucinations of any kind. Nursing report states the patient has been bizarre, and psychotic. PAST PSYCHIATRIC HISTORY Diagnoses: Bipolar ADHD Suicide attempts or Self-harm behavior: None reported Prior psychiatric hospitalizations: yes Substance Abuse history: None reported Previous psychiatric medications tried: Depakote, Risperdol and Abilify Outpatient treatment: None reported PAST MEDICAL HISTORY: None reported Family Psychiatric History: None reported or documented SOCIAL HISTORY Marital Status: Single Living Arrangements: Homeless Employment Status: Unemployed Access to guns/weapons: None reported Education: [employer] [facility] [place] History of Abuse: None reported Legal History: None reported REVIEW OF SYSTEMS Constitutional: Negative for weight loss ENT: Negative for stridor Respiratory: Negative for cough or hemoptysis All other systems reviewed and are negative MENTAL STATUS EXAMINATION General Appearance and Behavior: Age appropriate, good hygiene, wearing ap propriate clothes, good eye contact, cooperative polite with questioning. Cooperation: Participating/engaged Psychomotor Behavior: unremarkable and within normal limits Mood: Good Affect and affective range: congruent with mood Thought Process: Fluent/Logical, Thought Content: Within reality, Speech: Normal volume, Regular rate and rhythm, Intellectual Functioning: Average Suicidal Ideation: Denies SI Homicidal Ideation: Denies HI Impulse Control: Unimpaired Insight and Judgment: Normal insight and judgment, Memory: Normal, Attention: Normal, Orientation: Alert, oriented, Assessment (1) Bipolar 1 disorder Current Visit: Yes Status: Acute Treatment Plan Patient admitted for inpatient psychiatric evaluation, medication adjustment and close monitoring The patient's behavior, mood, sleep and appetite will be closely monitored. Patient enrolled in individual and group therapeutic sessions and encouraged to attend. Patient provided with a safe and structured environment. Patient's physical health needs will be addressed by the Hospitalist. Hospitalist Consulted Labs including CBC, CMP, Lipid profile and Hemoglobin A1C levels ordered for baseline reference Social Assessment will be completed and the Merchandising Representative will work with patient and family to ensure a suitable and safe disposition Medication adjustment will be made as clinically indicated Restarted meds Usual Wellness Holiness/Preservation: - Start Trazodone 50 mg po QHS & 50 mg po QHS PRN between 10 PM & 2 AM for insomnia - Start Melatonin 5 mg po QHS to promote circadian rhythm - Start [place]-3 for brain health, reduce impulsivity, and as adjunctive treatment for mood disorder, continue upon discharge given overall benefits. - Start B1 prophylaxis with 200 mg po for 5 days The patient agreed on the treatment plan, understood the risk, benefit, alternative treatment, potential consequence of no treatment, and gave informed consent. Initial Certification Inpatient psych services: I certify that the inpatient psychiatric services are required for treatment that could reasonably be expected to improve the patient's condition. Estimated days: 7 Post hospital care: primary care provider, psychiatric provider Legal Status: Voluntary Reaction to Hospitalization: Accepting Medications and Allergies Allergies Allergy/AdvReac Type Severity Reaction Status Date / Time olanzapine [From Zyprexa] Allergy Unknown Verified 01/19/21 01:57 Home Medications Medication Instructions Recorded Confirmed Last Taken Type ARIPiprazole [Abilify Maintena] 300 mg IM QMONTH 01/19/21 02/04/21 Unknown History Benztropine [Cogentin] 1 mg PO BID 01/19/21 02/04/[address] [DepaKOTE DR] 500 mg PO BID #30 tablet 01/19/21 02/04/21 Unknown Rx lisinopriL [Lisinopril] 10 mg PO QDAY 01/19/21 02/04/21 Unknown History risperiDONE [RisperDAL] 2 mg PO BID #60 tablet 01/19/21 02/04/21 Unknown Rx risperiDONE [RisperDAL] 3 mg PO QDAY 01/19/21 02/04/21 Unknown History Divalproex ER [DepaKOTE ER] 500 mg PO BID #60 tablet 01/22/21 02/04/21 Unknown Rx risperiDONE [RisperDAL] 1 mg PO TID #90 tablet 01/22/21 02/04/21 Unknown Rx Active Meds: Active Medications Haloperidol (Haloperidol 5 Mg Tab) 5 mg PO Q6H PRN PRN Reason: Agitation Lorazepam (Lorazepam 2 Mg/Ml Vial) 2 mg IM Q6H PRN PRN Reason: Agitation Trazodone HCl (Trazodone 50 Mg Tab) 50 mg PO QHS [facility] Results - Results Labs/Vitals: Laboratory Last Values POC Glucose 95 mg/dL (70-105) 02/05/21 00:47 Last Vital Signs Temp 98.1 F 02/05/21 00:44 Pulse 89 02/05/21 00:44 Resp 16 02/05/21 00:44 BP 135/83 02/05/21 00:44 Pulse Ox 96 02/05/21 00:44 Physical Examination - Constitutional Vitals: Vital Signs Temp Pulse Resp BP Pulse Ox 98.1 F 89 16 135/83 96 02/05/21 00:44 02/05/21 00:44 02/05/21 00:44 02/05/21 00:44 02/05/21 00:44 Temperature -Last 24 Hours Temperature 98.1 F Mental Status Exam - Vital signs Last Vital Signs Temp 98.1 F 02/05/21 00:44 Pulse 89 02/05/21 00:44 Resp 16 02/05/21 00:44 BP 135/83 02/05/21 00:44 Pulse Ox 96 02/05/21 00:44 Physician Certification - Certification Statement Physician Certification Statement: This is an acknowledgement statement that CHLOE WHELAN is a 45 year old F who requires inpatient psychiatric admission for treatment which could reasonably be expected to improve the patient's condition for Estimated period of time patient will need to remain in the hospital: [ ] Plan for post-hospital care: [ ]
[2021-02-05] MEDS: risperiDONE 1 MG TAB PO SCH ×2 (09:12→21:10)
[2021-02-05] MEDS: LISINOPRIL 10 MG TAB PO SCH (09:12)
[2021-02-05] MEDS: BENZTROPINE 1 MG TAB PO SCH ×2 (09:12→21:10)
[2021-02-05] MEDS: DIVALPROEX DR 500 MG TAB PO SCH ×2 (09:13→21:10)
[2021-02-05] MEDS ORDERED: NON-FORMULARY EACH (Risperidone [Risperdal] 2 MG Tablet) PO SCH (10:00)
[2021-02-05] MEDS: traZODone 50 MG TAB PO SCH (21:10)
[2021-02-06] MEDS: LISINOPRIL 10 MG TAB PO SCH (10:00)
[2021-02-06] MEDS: risperiDONE 1 MG TAB PO SCH ×2 (10:00→21:11)
[2021-02-06] MEDS: BENZTROPINE 1 MG TAB PO SCH ×2 (10:48→21:11)
--- NOTE | 2021-02-06 11:26 | Progress Note ---
Subjective - Reason for Consult Consult date: 02/06/21 Reason for consult: psychosis - Chief Complaint Chief complaint: The patient was seen today, she is heard as I'm entering her room having a full conversation with someone who is not there. Although, she denies hallucinations of any kind. She tells me she "feels hyperverbal." The patient says "I think too much and I'm having some reflections." She denies SI/HI Reason for continued inpatient treatment:The patient is hyperverbal, hallucinating and manic REVIEW OF SYSTEMS Constitutional: Negative for weight loss ENT: Negative for stridor Respiratory: Negative for cough or hemoptysis All other systems reviewed and are negative MENTAL STATUS EXAMINATION General Appearance and Behavior: Age appropriate, good hygiene, wearing appropriate clothes, good eye contact, cooperative polite with questioning. Cooperation: Participating/engaged Psychomotor Behavior: unremarkable and within normal limits Mood: Good Affect and affective range: congruent with mood Thought Process: Fluent/Logical, Thought Content: Within reality, Speech: Normal volume, Regular rate and rhythm, Intellectual Functioning: Average Suicidal Ideation: Denies SI Homicidal Ideation: Denies HI Impulse Control: Unimpaired Insight and Judgment: Normal insight and judgment, Memory: Normal, Attention: Normal, Orientation: Alert, oriented, Assessment (1) Bipolar 1 disorder Current Visit: Yes Status: Acute Treatment Plan Patient admitted for inpatient psychiatric evaluation, medication adjustment and close monitoring The patient's behavior, mood, sleep and appetite will be closely monitored. Patient enrolled in individual and group therapeutic sessions and encouraged to attend. Patient provided with a safe and structured environment. Patient's physical health needs will be addressed by the Hospitalist. Hospitalist Consulted Labs including CBC, CMP, Lipid profile and Hemoglobin A1C levels ordered for baseline reference Valproic 02/08/21 Social Assessment will be completed and the Programmer Analyst Consultant will work with patient and family to ensure a suitable and safe disposition Medication adjustment will be made as clinically indicated Increased Depakote DR 500mg po TID Start Klonopin 0.25mg po BID x 3 days Usual Wellness [place]/Preservation: - Start Trazodone 50 mg po QHS & 50 mg po QHS PRN between 10 PM & 2 AM for insomnia - Start Melatonin 5 mg po QHS to promote circadian rhythm - Start [place]-3 for brain health, reduce impulsivity, and as adjunctive treatment for mood disorder, continue upon discharge given overall benefits. - Start B1 prophylaxis with 200 mg po for 5 days The patient agreed on the treatment plan, understood the risk, benefit, alternative treatment, potential consequence of no treatment, and gave informed consent. Estimated days: 7 Post hospital care: primary care provider, psychiatric provider Mental Status Exam - Vital signs Last Vital Signs Temp 97.9 F 02/06/21 08:01 Pulse 81 02/06/21 08:01 Resp 16 02/06/21 08:01 BP 135/62 02/06/21 08:01 Pulse Ox 98 02/06/21 08:01
[2021-02-06] MEDS: DIVALPROEX DR 500 MG TAB PO SCH ×3 (14:30→20:38)
[2021-02-06] MEDS: clonazePAM 0.5 MG TAB PO SCH ×2 (19:56→21:12)
[2021-02-06] MEDS: traZODone 50 MG TAB PO SCH (21:11)
[2021-02-07] MEDS: BENZTROPINE 1 MG TAB PO SCH ×2 (09:27→21:18)
[2021-02-07] MEDS: risperiDONE 1 MG TAB PO SCH ×2 (09:27→21:16)
[2021-02-07] MEDS: LISINOPRIL 10 MG TAB PO SCH (09:28)
[2021-02-07] MEDS: DIVALPROEX DR 500 MG TAB PO SCH ×3 (09:28→20:59)
[2021-02-07] MEDS: clonazePAM 0.5 MG TAB PO SCH ×2 (09:30→21:16)
--- NOTE | 2021-02-07 10:39 | Progress Note ---
Subjective Date of service: 02/07/21 Subjective Comment: The patient was seen today, she is responding to internal stimuli. When asking the patient what were the voices saying. She says she "only hears God's voice and reflections." She is more calm today. She is sleeping on and off as I'm talking to her. She denies SI/HI REVIEW OF SYSTEMS Constitutional: Negative for weight loss ENT: Negative for stridor Respiratory: Negative for cough or hemoptysis All other systems reviewed and are negative MENTAL STATUS EXAMINATION General Appearance and Behavior: Age appropriate, good hygiene, wearing appropriate clothes, good eye contact, cooperative polite with questioning. Cooperation: Participating/engaged Psychomotor Behavior: unremarkable and within normal limits Mood: Good Affect and affective range: congruent with mood Thought Process: Fluent/Logical, Thought Content: Within reality, Speech: Normal volume, Regular rate and rhythm, Intellectual Functioning: Average Suicidal Ideation: Denies SI Homicidal Ideation: Denies HI Impulse Control: Unimpaired Insight and Judgment: Normal insight and judgment, Memory: Normal, Attention: Normal, Orientation: Alert, oriented, Assessment (1) Bipolar 1 disorder Current Visit: Yes Status: Acute Treatment Plan Patient admitted for inpatient psychiatric evaluation, medication adjustment and close monitoring The patient's behavior, mood, sleep and appetite will be closely monitored. Patient enrolled in individual and group therapeutic sessions and encouraged to attend. Patient provided with a safe and structured environment. Patient's physical health needs will be addressed by the Hospitalist. Hospitalist Consulted Labs including CBC, CMP, Lipid profile and Hemoglobin A1C levels ordered for baseline reference Valproic 02/08/21 Social Assessment will be completed and the Cap And Hat Production Supervisor will work with patient and family to ensure a suitable and safe disposition Medication adjustment will be made as clinically indicated Increased Depakote DR 500mg po TID yesterday Start Klonopin 0.25mg po BID x 3 days yesterday Usual Wellness [facility]/Preservation: - Start Trazodone 50 mg po QHS & 50 mg po QHS PRN between 10 PM & 2 AM for insomnia - Start Melatonin 5 mg po QHS to promote circadian rhythm - Start [place]-3 for brain health, reduce impulsivity, and as adjunctive treatment for mood disorder, continue upon discharge given overall benefits. - Start B1 prophylaxis with 200 mg po for 5 days The patient agreed on the treatment plan, understood the risk, benefit, alternative treatment, potential consequence of no treatment, and gave informed consent. Estimated days: 7 Post hospital care: primary care provider, psychiatric provider Medications and Allergies Allergies Allergy/AdvReac Type Severity Reaction Status Date / Time olanzapine [From Zyprexa] Allergy Unknown Verified 01/19/21 01:57 Home Medications Medication Instructions Recorded Confirmed Last Taken Type ARIPiprazole [Abilify Maintena] 300 mg IM QMONTH 01/19/21 02/04/21 Unknown History Benztropine [Cogentin] 1 mg PO BID 01/19/21 02/04/[address] [DepaKOTE DR] 500 mg PO BID #30 tablet 01/19/21 02/04/21 Unknown Rx lisinopriL [Lisinopril] 10 mg PO QDAY 01/19/21 02/04/21 Unknown History risperiDONE [RisperDAL] 2 mg PO BID #60 tablet 01/19/21 02/04/21 Unknown Rx risperiDONE [RisperDAL] 3 mg PO QDAY 01/19/21 02/04/21 Unknown History Divalproex ER [DepaKOTE ER] 500 mg PO BID #60 tablet 01/22/21 02/04/21 Unknown Rx risperiDONE [RisperDAL] 1 mg PO TID #90 tablet 01/22/21 02/04/21 Unknown Rx Active Meds: Active Medications Benztropine Mesylate (Benztropine 1 Mg Tab) 1 mg PO BID [facility] Last Admin: 02/07/21 09:27 Dose: 1 mg Documented by: Clonazepam (Clonazepam 0.5 Mg Tab) 0.25 mg PO BID [facility] Stop: 02/09/21 06:00 Last Admin: 02/07/21 09:30 Dose: Not Given Documented by: Divalproex Sodium (Divalproex Dr 500 Mg Tab) 500 mg PO TID [facility] Last Admin: 02/07/21 09:28 Dose: 500 mg Documented by: Haloperidol (Haloperidol 5 Mg Tab) 5 mg PO Q6H PRN PRN Reason: Agitation Lisinopril (Lisinopril 10 Mg Tab) 10 mg PO QDAY [facility] Last Admin: 02/07/21 09:28 Dose: 10 mg Documented by: Lorazepam (Lorazepam 2 Mg/Ml Vial) 2 mg IM Q6H PRN PRN Reason: Agitation Risperidone (Risperidone 1 Mg Tab) 2 mg PO BID [facility] Last Admin: 02/07/21 09:27 Dose: 2 mg Documented by: Trazodone HCl (Trazodone 50 Mg Tab) 75 mg PO QHS [facility] Results - Results Labs/Vitals: Laboratory Last Values POC Glucose 86 mg/dL (70-105) 02/05/21 19:39 Last Vital Signs Temp 97.2 F L 02/07/21 08:51 Pulse 95 H 02/07/21 08:51 Resp 18 02/07/21 08:51 BP 114/61 02/07/21 08:51 Pulse Ox 97 02/07/21 08:51
[2021-02-07] MEDS ORDERED: traZODone 50 MG TAB PO SCH (22:00)
[2021-02-08] MEDS: DIVALPROEX DR 500 MG TAB PO SCH (09:32)
[2021-02-08] MEDS: clonazePAM 0.5 MG TAB PO SCH ×2 (09:32→21:24)
[2021-02-08] MEDS: BENZTROPINE 1 MG TAB PO SCH ×2 (09:33→21:23)
[2021-02-08] MEDS: risperiDONE 1 MG TAB PO SCH ×2 (09:33→21:22)
[2021-02-08] MEDS: LISINOPRIL 10 MG TAB PO SCH (09:33)
--- NOTE | 2021-02-08 10:47 | Progress Note ---
Subjective Date of service: 02/08/21 Principal diagnosis: psychosis Subjective Comment: The patient was seen today, she states she is not sleeping at night. The patient is talking to herself. She says "I'm always going to do that." She denies SI/HI. REVIEW OF SYSTEMS Constitutional: Negative for weight loss ENT: Negative for stridor Respiratory: Negative for cough or hemoptysis All other systems reviewed and are negative MENTAL STATUS EXAMINATION General Appearance and Behavior: Age appropriate, good hygiene, wearing appropriate clothes, good eye contact, cooperative polite with questioning. Cooperation: Participating/engaged Psychomotor Behavior: unremarkable and within normal limits Mood: Good Affect and affective range: congruent with mood Thought Process: Fluent/Logical, Thought Content: Within reality, Speech: Normal volume, Regular rate and rhythm, Intellectual Functioning: Average Suicidal Ideation: Denies SI Homicidal Ideation: Denies HI Impulse Control: Unimpaired Insight and Judgment: Normal insight and judgment, Memory: Normal, Attention: Normal, Orientation: Alert, oriented, Assessment (1) Bipolar 1 disorder Current Visit: Yes Status: Acute Treatment Plan Patient admitted for inpatient psychiatric evaluation, medication adjustment and close monitoring The patient's behavior, mood, sleep and appetite will be closely monitored. Patient enrolled in individual and group therapeutic sessions and encouraged to attend. Patient provided with a safe and structured environment. Patient's physical health needs will be addressed by the Hospitalist. Hospitalist Consulted Labs including CBC, CMP, Lipid profile and Hemoglobin A1C levels ordered for baseline reference Valproic 02/08/21 Social Assessment will be completed and the Ball Fringe Machine Operator will work with patient and family to ensure a suitable and safe disposition Medication adjustment will be made as clinically indicated Increased Trazodone 100mg po qhs Start Melatonin 5mg po qhs Usual Wellness Uatsdin/Preservation: - Start Trazodone 50 mg po QHS & 50 mg po QHS PRN between 10 PM & 2 AM for insomnia - Start Melatonin 5 mg po QHS to promote circadian rhythm - Start Hawley-3 for brain health, reduce impulsivity, and as adjunctive treatment for mood disorder, continue upon discharge given overall benefits. - Start B1 prophylaxis with 200 mg po for 5 days The patient agreed on the treatment plan, understood the risk, benefit, alternative treatment, potential consequence of no treatment, and gave informed consent. Estimated days: 7 Post hospital care: primary care provider, psychiatric provider Medications and Allergies Allergies Allergy/AdvReac Type Severity Reaction Status Date / Time olanzapine [From Zyprexa] Allergy Unknown Verified 01/19/21 01:57 Home Medications Medication Instructions Recorded Confirmed Last Taken Type ARIPiprazole [Abilify Maintena] 300 mg IM QMONTH 01/19/21 02/04/21 Unknown History Benztropine [Cogentin] 1 mg PO BID 01/19/21 02/04/[address] [DepaKOTE DR] 500 mg PO BID #30 tablet 01/19/21 02/04/21 Unknown Rx lisinopriL [Lisinopril] 10 mg PO QDAY 01/19/21 02/04/21 Unknown History risperiDONE [RisperDAL] 2 mg PO BID #60 tablet 01/19/21 02/04/21 Unknown Rx risperiDONE [RisperDAL] 3 mg PO QDAY 01/19/21 02/04/21 Unknown History Divalproex ER [DepaKOTE ER] 500 mg PO BID #60 tablet 01/22/21 02/04/21 Unknown Rx risperiDONE [RisperDAL] 1 mg PO TID #90 tablet 01/22/21 02/04/21 Unknown Rx Active Meds: Active Medications Benztropine Mesylate (Benztropine 1 Mg Tab) 1 mg PO BID [facility] Last Admin: 02/08/21 09:33 Dose: 1 mg Documented by: Clonazepam (Clonazepam 0.5 Mg Tab) 0.25 mg PO BID [facility] Stop: 02/09/21 06:00 Last Admin: 02/08/21 09:32 Dose: 0.25 mg Documented by: Divalproex Sodium (Divalproex Dr 500 Mg Tab) 500 mg PO TID [facility] Last Admin: 02/08/21 09:32 Dose: 500 mg Documented by: Haloperidol (Haloperidol 5 Mg Tab) 5 mg PO Q6H PRN PRN Reason: Agitation Hydrophilic Ointment (Lip Therapy Vaseline) 1 applic TP DIRECT PRN PRN Reason: Dry Lips Lisinopril (Lisinopril 10 Mg Tab) 10 mg PO QDAY [facility] Last Admin: 02/08/21 09:33 Dose: 10 mg Documented by: Lorazepam (Lorazepam 2 Mg/Ml Vial) 2 mg IM Q6H PRN PRN Reason: Agitation Risperidone (Risperidone 1 Mg Tab) 2 mg PO BID [facility] Last Admin: 02/08/21 09:33 Dose: 2 mg Documented by: Trazodone HCl (Trazodone 50 Mg Tab) 75 mg PO QHS [facility] Last Admin: 02/07/21 21:18 Dose: 75 mg Documented by: Results - Results Labs/Vitals: Laboratory Last Values POC Glucose 86 mg/dL (70-105) 02/05/21 19:39 Valproic Acid 81.8 ug/mL (50-100) 02/08/21 09:31 Last Vital Signs Temp 97.6 F 02/08/21 08:11 Pulse 81 02/08/21 09:33 Resp 20 02/08/21 08:11 BP 150/69 02/08/21 09:33 Pulse Ox 100 02/08/21 08:11
--- NOTE | 2021-02-08 11:24 | Consultation ---
History of Present Illness - Reason for Consult Consult date: 02/11/21 Medical management Requesting physician: FRANCISCO JAVIER GARRIDO - History of Present Illness 45 YO Female with HTN, Diet Controlled-DM, Bipolar Disorder, Schizophrenia admitted to [facility] for Psychiatric stabilization. Consult placed by Dr. Garrido for medical management. The patient was seen and evaluated in her room. Patient resting. Patient is minimally cooperative with exam and interview. Pt denies fever, chills, chest pain, palpitation, productive cough, skin rash, recent ill contacts, or known exposure to COVID-19. No reported nursing events. Past History Past Medical History: diabetes, hypertension, other (see hpi) Past Surgical History: No surgical history, Other (see HPI) Social history: single. denies: smoking, alcohol abuse Family history: diabetes, hypertension Medications and Allergies Allergies Allergy/AdvReac Type Severity Reaction Status Date / Time olanzapine [From Zyprexa] Allergy Unknown Verified 01/19/21 01:57 Home Medications Medication Instructions Recorded Confirmed Last Taken Type ARIPiprazole [Abilify Maintena] 300 mg IM QMONTH 01/19/21 02/04/21 Unknown History Benztropine [Cogentin] 1 mg PO BID 01/19/21 02/04/[address] [DepaKOTE DR] 500 mg PO BID #30 tablet 01/19/21 02/04/21 Unknown Rx lisinopriL [Lisinopril] 10 mg PO QDAY 01/19/21 02/04/21 Unknown History risperiDONE [RisperDAL] 2 mg PO BID #60 tablet 01/19/21 02/04/21 Unknown Rx risperiDONE [RisperDAL] 3 mg PO QDAY 01/19/21 02/04/21 Unknown History Divalproex ER [DepaKOTE ER] 500 mg PO BID #60 tablet 01/22/21 02/04/21 Unknown Rx risperiDONE [RisperDAL] 1 mg PO TID #90 tablet 01/22/21 02/04/21 Unknown Rx Active Meds: Active Medications Benztropine Mesylate (Benztropine 1 Mg Tab) 1 mg PO BID [facility] Last Admin: 02/08/21 09:33 Dose: 1 mg Documented by: Clonazepam (Clonazepam 0.5 Mg Tab) 0.25 mg PO BID [facility] Stop: 02/09/21 06:00 Last Admin: 02/08/21 09:32 Dose: 0.25 mg Documented by: Divalproex Sodium (Divalproex Dr 500 Mg Tab) 500 mg PO TID [facility] Last Admin: 02/08/21 09:32 Dose: 500 mg Documented by: Haloperidol (Haloperidol 5 Mg Tab) 5 mg PO Q6H PRN PRN Reason: Agitation Hydrophilic Ointment (Lip Therapy Vaseline) 1 applic TP DIRECT PRN PRN Reason: Dry Lips Lisinopril (Lisinopril 10 Mg Tab) 10 mg PO QDAY [facility] Last Admin: 02/08/21 09:33 Dose: 10 mg Documented by: Lorazepam (Lorazepam 2 Mg/Ml Vial) 2 mg IM Q6H PRN PRN Reason: Agitation Melatonin (Melatonin 5 Mg Tab) 5 mg PO QHS [facility] Risperidone (Risperidone 1 Mg Tab) 2 mg PO BID [facility] Last Admin: 02/08/21 09:33 Dose: 2 mg Documented by: Trazodone HCl (Trazodone 100 Mg Tab) 100 mg PO QHS [facility] Review of Systems Constitutional: no weight loss, no weight gain Ears, nose, mouth and throat: no ear pain, no tinnitis, no decreased hearing, no nose pain, no nasal discharge Breasts: no change in shape, no swelling, no mass Cardiovascular: no chest pain, no orthopnea, no palpitations, no edema Exam - Constitutional Vitals: Temp Pulse Resp BP Pulse Ox 97.6 F 81 20 150/69 100 02/08/21 08:11 02/08/21 09:33 02/08/21 08:11 02/08/21 09:33 02/08/21 08:11 Results - Labs CBC & Chem 7: 02/08/21 09:31 02/08/21 09:31 Assessment and Plan - Patient Problems (1) HTN (hypertension) Current Visit: Yes Status: Acute Qualifiers: Hypertension type: essential hypertension Qualified Code(s): I10 - Esse ntial (primary) hypertension Plan to address problem: Monitor BP q shift, continue medical management (2) Diabetes Current Visit: Yes Status: Acute Plan to address problem: Consistent carbohydrate diet, supportive care. (3) Obesity hypoventilation syndrome Current Visit: Yes Status: Acute Plan to address problem: Balanced diet, increased physical activity at discharge, Outpatient pulmonary F/U for sleep study.
[2021-02-08 11:35] LABS: Basophils # (Auto) 0.1 K/mm3 (0.0-0.1); Basophils % (Auto) 1.5 % (0.0-1.8); Eosinophils # (Auto) 0.2 K/mm3 (0.0-0.4); Eosinophils % (Auto) 3.1 % (0.0-4.3); Hematocrit 33.8 % (30.3-42.9); Hemoglobin 11.3 gm/dl (10.1-14.3); Lymphocytes # (Auto) 1.9 K/mm3 (1.2-5.4); Lymphocytes % (Auto) 38.7 % (13.4-35.0); Mean Corpuscular HGB Conc 33 % (30-34); Mean Corpuscular Volume 80 fl (79-97); Monocytes # (Auto) 0.5 K/mm3 (0.0-0.8); Monocytes % (Auto) 9.3 % (0.0-7.3); Platelet Count 231 K/mm3 (140-440); Red Blood Count 4.23 M/mm3 (3.65-5.03); Red Cell Distribution Width 15.6 % (13.2-15.2)
[2021-02-08 12:18] LABS: Alanine Aminotransferase 42 units/L (7-56); Albumin 3.7 g/dL (3.9-5); Blood Urea Nitrogen 11 mg/dL (7-17); Calcium 9.2 mg/dL (8.4-10.2); Chol/HDL Ratio 3.47 %; HDL Cholesterol 48 mg/dL (40-59); Hemolysis Index 3; LDL Cholesterol,Direct 112 mg/dL (50-130)
[2021-02-08 12:19] LABS: BUN/Creatinine Ratio 18
[2021-02-08] MEDS: DIVALPROEX ER 500 MG TAB PO SCH (21:22)
[2021-02-08] MEDS: traZODone 100 MG TAB PO SCH (21:22)
[2021-02-08] MEDS: MELATONIN 5 MG TAB PO SCH (21:23)
--- NOTE | 2021-02-09 09:06 | Progress Note ---
Subjective Date of service: 02/09/21 Principal diagnosis: psychosis Subjective Comment: Per Nurse Note: Pt rested w/o incident overnight. Compliant with tx regimens. Intermittently responding to internal stimulus earlier in the shift The patient was seen today, she is standing in front of the mirror talking to herself. She is irritable and glares at me as I enter her room. She says "I'm just thinking some things through." The patent denies SI/HI, stating "I've never been that." REVIEW OF SYSTEMS Constitutional: Negative for weight loss ENT: Negative for stridor Respiratory: Negative for cough or hemoptysis All other systems reviewed and are negative MENTAL STATUS EXAMINATION General Appearance and Behavior: Age appropriate, good hygiene, wearing appropriate clothes, good eye contact, cooperative, irritable Cooperation: Participating/engaged Psychomotor Behavior: unremarkable and within normal limits Mood: "I'm okay" Affect and affective range: congruent with mood Thought Process: Fluent/Logical, Thought Content: Within reality, Speech: Normal volume, Regular rate and rhythm, Intellectual Functioning: Average Suicidal Ideation: Denies SI Homicidal Ideation: Denies HI Impulse Control: Unimpaired Insight and Judgment: Normal insight and judgment, Memory: Normal, Attention: Normal, Orientation: Alert, oriented, Assessment (1) Bipolar 1 disorder Current Visit: Yes Status: Acute Treatment Plan Patient admitted for inpatient psychiatric evaluation, medication adjustment and close monitoring The patient's behavior, mood, sleep and appetite will be closely monitored. Patient enrolled in individual and group therapeutic sessions and encouraged to attend. Patient provided with a safe and structured environment. Patient's physical health needs will be addressed by the Hospitalist. Hospitalist Consulted Labs including CBC, CMP, Lipid profile and Hemoglobin A1C levels ordered for baseline reference Valproic 81.8 Social Assessment will be completed and the Talking Books Library Clerk will work with patient and family to ensure a suitable and safe disposition Medication adjustment will be made as clinically indicated Increased Trazodone 100mg po qhs yesterday Start Melatonin 5mg po qhs yesterday Start Haldol 0.5mg po daily as adjunct therapy Usual Wellness Congregation/Preservation: - Start Trazodone 50 mg po QHS & 50 mg po QHS PRN between 10 PM & 2 AM for insomnia - Start Melatonin 5 mg po QHS to promote circadian rhythm - Start Bryan-3 for brain health, reduce impulsivity, and as adjunctive treatment for mood disorder, continue upon discharge given overall benefits. - Start B1 prophylaxis with 200 mg po for 5 days The patient agreed on the treatment plan, understood the risk, benefit, alternative treatment, potential consequence of no treatment, and gave informed consent. Estimated days: 5 Post hospital care: primary care provider, psychiatric provider Medications and Allergies Allergies Allergy/AdvReac Type Severity Reaction Status Date / Time olanzapine [From Zyprexa] Allergy Unknown Verified 01/19/21 01:57 Home Medications Medication Instructions Recorded Confirmed Last Taken Type ARIPiprazole [Abilify Maintena] 300 mg IM QMONTH 01/19/21 02/04/21 Unknown History Benztropine [Cogentin] 1 mg PO BID 01/19/21 02/04/[address] [DepaKOTE DR] 500 mg PO BID #30 tablet 01/19/21 02/04/21 Unknown Rx lisinopriL [Lisinopril] 10 mg PO QDAY 01/19/21 02/04/21 Unknown History risperiDONE [RisperDAL] 2 mg PO BID #60 tablet 01/19/21 02/04/21 Unknown Rx risperiDONE [RisperDAL] 3 mg PO QDAY 01/19/21 02/04/21 Unknown History Divalproex ER [DepaKOTE ER] 500 mg PO BID #60 tablet 01/22/21 02/04/21 Unknown Rx risperiDONE [RisperDAL] 1 mg PO TID #90 tablet 01/22/21 02/04/21 Unknown Rx Active Meds: Active Medications Benztropine Mesylate (Benztropine 1 Mg Tab) 1 mg PO BID [facility] Last Admin: 02/08/21 21:23 Dose: 1 mg Documented by: Divalproex Sodium (Divalproex Er 500 Mg Tab) 500 mg PO BID [facility] Last Admin: 02/08/21 21:22 Dose: 500 mg Documented by: Haloperidol (Haloperidol 5 Mg Tab) 5 mg PO Q6H PRN PRN Reason: Agitation Hydrophilic Ointment (Lip Therapy Vaseline) 1 applic TP DIRECT PRN PRN Reason: Dry Lips Lisinopril (Lisinopril 10 Mg Tab) 10 mg PO QDAY [facility] Last Admin: 02/08/21 09:33 Dose: 10 mg Documented by: Lorazepam (Lorazepam 2 Mg/Ml Vial) 2 mg IM Q6H PRN PRN Reason: Agitation Melatonin (Melatonin 5 Mg Tab) 5 mg PO QHS [facility] Last Admin: 02/08/21 21:23 Dose: 5 mg Documented by: Risperidone (Risperidone 1 Mg Tab) 2 mg PO BID [facility] Last Admin: 02/08/21 21:22 Dose: 2 mg Documented by: Trazodone HCl (Trazodone 100 Mg Tab) 100 mg PO QHS [facility] Last Admin: 02/08/21 21:22 Dose: 100 mg Documented by: Results - Results Labs/Vitals: Laboratory Last Values WBC 4.9 K/mm3 (4.5-11.0) 02/08/21 09: RBC 4.23 M/mm3 (3.65-5.03) 02/08/21 09: Hgb 11.3 gm/dl (10.1-14.3) 02/08/21 09:31 Hct 33.8 % (30.3-42.9) 02/08/21 09: MCV 80 fl (79-97) 02/08/21 09: MCH 27 pg (28-32) L 02/08/21 09:31 MCHC 33 % (30-34) 02/08/21 09: RDW 15.6 % (13.2-15.2) H 02/08/21 09:31 Plt Count 231 K/mm3 (140-440) 02/08/21 09:31 Lymph % (Auto) 38.7 % (13.4-35.0) H 02/08/21 09:31 [place] % (Auto) 9.3 % (0.0-7.3) H 02/08/21 09:31 Eos % (Auto) 3.1 % (0.0-4.3) 02/08/21 09: Baso % (Auto) 1.5 % (0.0-1.8) 02/08/21 09: Lymph # (Auto) 1.9 K/mm3 (1.2-5.4) 02/08/21 09:31 [place] # (Auto) 0.5 K/mm3 (0.0-0.8) 02/08/21 09: Eos # (Auto) 0.2 K/mm3 (0.0-0.4) 02/08/21 09:31 Baso # (Auto) 0.1 K/mm3 (0.0-0.1) 02/08/21 09:31 Seg Neutrophils % 47.4 % (40.0-70.0) 02/08/21 09:31 Seg Neutrophils # 2.3 K/mm3 (1.8-7.7) 02/08/21 09:31 Sodium 138 mmol/L (137-145) 02/08/21 09:31 Potassium 4.4 mmol/L (3.6-5.0) D 02/08/21 09:31 Chloride 101.9 mmol/L (98-107) 02/08/21 09:31 Carbon Dioxide 29 mmol/L (22-30) 02/08/21 09:31 Anion Gap 12 mmol/L 02/08/21 09:31 BUN 11 mg/dL (7-17) 02/08/21 09:31 Creatinine 0.6 mg/dL (0.6-1.2) 02/08/21 09:31 Estimated GFR > 60 ml/min 02/08/21 09:31 BUN/Creatinine Ratio 18 % 02/08/21 09:31 Glucose 84 mg/dL (65-100) 02/08/21 09:31 POC Glucose 86 mg/dL (70-105) 02/05/21 19:39 Hemoglobin A1c 5.4 % (4-6) 02/08/21 09:31 Calcium 9.2 mg/dL (8.4-10.2) 02/08/21 09:31 Total Bilirubin 0.40 mg/dL (0.1-1.2) 02/08/21 09:31 AST 34 units/L (5-40) 02/08/21 09:31 ALT 42 units/L (7-56) 02/08/21 09:31 Alkaline Phosphatase 66 units/L (35-129) 02/08/21 09:31 Total Protein 6.9 g/dL (6.3-8.2) 02/08/21 09:31 Albumin 3.7 g/dL (3.9-5) L 02/08/21 09:31 Albumin/Globulin Ratio 1.2 % 02/08/21 09:31 Triglycerides 58 mg/dL (2-149) 02/08/21 09:31 Cholesterol 167 mg/dL (50-199) 02/08/21 09:31 LDL Cholesterol Direct 112 mg/dL (50-130) 02/08/21 09:31 HDL Cholesterol 48 mg/dL (40-59) 02/08/21 09:31 Cholesterol/HDL Ratio 3.47 % 02/08/21 09:31 TSH 0.931 mlU/mL (0.270-4.200) 02/08/21 09:31 Valproic Acid 81.8 ug/mL (50-100) 02/08/21 09:31 Last Vital Signs Temp 97.6 F 02/09/21 08:22 Pulse 87 02/09/21 08:22 Resp 16 02/09/21 08:22 BP 111/65 02/09/21 08:22 Pulse Ox 97 02/09/21 08:22
[2021-02-09] MEDS ORDERED: HALOPERIDOL 1 MG TAB PO SCH (10:00)
[2021-02-09] MEDS: DIVALPROEX ER 500 MG TAB PO SCH ×2 (10:28→21:12)
[2021-02-09] MEDS: BENZTROPINE 1 MG TAB PO SCH ×2 (10:28→21:12)
[2021-02-09] MEDS: LISINOPRIL 10 MG TAB PO SCH (10:29)
[2021-02-09] MEDS: risperiDONE 1 MG TAB PO SCH ×2 (10:29→21:12)
[2021-02-09] MEDS: HALOPERIDOL 1 MG TAB PO SCH (10:33)
[2021-02-09] MEDS: LIP THERAPY VASELINE TP PRN ×2 (10:35→20:54)
[2021-02-09] MEDS: traZODone 100 MG TAB PO SCH (21:12)
[2021-02-09] MEDS: MELATONIN 5 MG TAB PO SCH (21:12)
--- NOTE | 2021-02-10 08:25 | Progress Note ---
Subjective Date of service: 02/10/21 Principal diagnosis: psychosis Subjective Comment: The patient was seen today, she is standing in front of the mirror talking to herself as she's been dong every morning. She says she's in a good mood. When asking about SI/HI, the patient says "no, just recurring thoughts." She says "thoughts about myself and what I should do." The patient says she slept good. REVIEW OF SYSTEMS Constitutional: Negative for weight loss ENT: Negative for stridor Respiratory: Negative for cough or hemoptysis All other systems reviewed and are negative MENTAL STATUS EXAMINATION General Appearance and Behavior: Age appropriate, good hygiene, wearing appropriate clothes, good eye contact, cooperative, irritable Cooperation: Participating/engaged Psychomotor Behavior: unremarkable and within normal limits Mood: "good" Affect and affective range: congruent with mood Thought Process: Fluent/Logical, Thought Content: Within reality, Speech: Normal volume, Regular rate and rhythm, Intellectual Functioning: Average Suicidal Ideation: Denies SI Homicidal Ideation: Denies HI Impulse Control: Unimpaired Insight and Judgment: Normal insight and judgment, Memory: Normal, Attention: Normal, Orientation: Alert, oriented, Assessment (1) Bipolar 1 disorder Current Visit: Yes Status: Acute Treatment Plan Patient admitted for inpatient psychiatric evaluation, medication adjustment and close monitoring The patient's behavior, mood, sleep and appetite will be closely monitored. Patient enrolled in individual and group therapeutic sessions and encouraged to attend. Patient provided with a safe and structured environment. Patient's physical health needs will be addressed by the Hospitalist. Hospita list Consulted Labs including CBC, CMP, Lipid profile and Hemoglobin A1C levels ordered for baseline reference Valproic 81.8 Social Assessment will be completed and the Personnel Security Assistant will work with patient and family to ensure a suitable and safe disposition Medication adjustment will be made as clinically indicated Continue Trazodone 100mg po qhs yesterday Continue Melatonin 5mg po qhs yesterday Continue Haldol 0.5mg po daily as adjunct therapy Continue Risperidone 2mg po BID Usual Wellness Moravian/Preservation: - Start Trazodone 50 mg po QHS & 50 mg po QHS PRN between 10 PM & 2 AM for insomnia - Start Melatonin 5 mg po QHS to promote circadian rhythm - Start Hasty-3 for brain health, reduce impulsivity, and as adjunctive treatment for mood disorder, continue upon discharge given overall benefits. - Start B1 prophylaxis with 200 mg po for 5 days The patient agreed on the treatment plan, understood the risk, benefit, alternative treatment, potential consequence of no treatment, and gave informed consent. Estimated days: 5 Post hospital care: primary care provider, psychiatric provider Medications and Allergies Allergies Allergy/AdvReac Type Severity Reaction Status Date / Time olanzapine [From Zyprexa] Allergy Unknown Verified 01/19/21 01:57 Home Medications Medication Instructions Recorded Confirmed Last Taken Type ARIPiprazole [Abilify Maintena] 300 mg IM QMONTH 01/19/21 02/04/21 Unknown History Benztropine [Cogentin] 1 mg PO BID 01/19/21 02/04/[address] [DepaKOTE DR] 500 mg PO BID #30 tablet 01/19/21 02/04/21 Unknown Rx lisinopriL [Lisinopril] 10 mg PO QDAY 01/19/21 02/04/21 Unknown History risperiDONE [RisperDAL] 2 mg PO BID #60 tablet 01/19/21 02/04/21 Unknown Rx risperiDONE [RisperDAL] 3 mg PO QDAY 01/19/21 02/04/21 Unknown History Divalproex ER [DepaKOTE ER] 500 mg PO BID #60 tablet 01/22/21 02/04/21 Unknown Rx risperiDONE [RisperDAL] 1 mg PO TID #90 tablet 01/22/21 02/04/21 Unknown Rx Active Meds: Active Medications Benztropine Mesylate (Benztropine 1 Mg Tab) 1 mg PO BID [facility] Last Admin: 02/09/21 21:12 Dose: 1 mg Documented by: Divalproex Sodium (Divalproex Er 500 Mg Tab) 500 mg PO BID [facility] Last Admin: 02/09/21 21:12 Dose: 500 mg Documented by: Haloperidol (Haloperidol 5 Mg Tab) 5 mg PO Q6H PRN PRN Reason: Agitation Haloperidol (Haloperidol 1 Mg Tab) 0.5 mg PO DAILY [facility] Last Admin: 02/09/21 10:33 Dose: 0.5 mg Documented by: Hydrophilic Ointment (Lip Therapy Vaseline) 1 applic TP DIRECT PRN PRN Reason: Dry Lips Last Admin: 02/09/21 20:54 Dose: 1 applic Documented by: Lisinopril (Lisinopril 10 Mg Tab) 10 mg PO QDAY [facility] Last Admin: 02/09/21 10:29 Dose: 10 mg Documented by: Lorazepam (Lorazepam 2 Mg/Ml Vial) 2 mg IM Q6H PRN PRN Reason: Agitation Melatonin (Melatonin 5 Mg Tab) 5 mg PO QHS [facility] Last Admin: 02/09/21 21:12 Dose: 5 mg Documented by: Risperidone (Risperidone 1 Mg Tab) 2 mg PO BID [facility] Last Admin: 02/09/21 21:12 Dose: 2 mg Documented by: Trazodone HCl (Trazodone 100 Mg Tab) 100 mg PO QHS [facility] Last Admin: 02/09/21 21:12 Dose: 100 mg Documented by: Results - Results Labs/Vitals: Laboratory Last Values WBC 4.9 K/mm3 (4.5-11.0) 02/08/21 09:31 RBC 4.23 M/mm3 (3.65-5.03) 02/08/21 09:31 Hgb 11.3 gm/dl (10.1-14.3) 02/08/21 09:31 Hct 33.8 % (30.3-42.9) 02/08/21 09:31 MCV 80 fl (79-97) 02/08/21 09:31 MCH 27 pg (28-32) L 02/08/21 09:31 MCHC 33 % (30-34) 02/08/21 09:31 RDW 15.6 % (13.2-15.2) H 02/08/21 09:31 Plt Count 231 K/mm3 (140-440) 02/08/21 09:31 Lymph % (Auto) 38.7 % (13.4-35.0) H 02/08/21 09:31 Stone % (Auto) 9.3 % (0.0-7.3) H 02/08/21 09:31 Eos % (Auto) 3.1 % (0.0-4.3) 02/08/21 09:31 Baso % (Auto) 1.5 % (0.0-1.8) 02/08/21 09:31 Lymph # (Auto) 1.9 K/mm3 (1.2-5.4) 02/08/21 09:31 Stone # (Auto) 0.5 K/mm3 (0.0-0.8) 02/08/21 09:31 Eos # (Auto) 0.2 K/mm3 (0.0-0.4) 02/08/21 09:31 Baso # (Auto) 0.1 K/mm3 (0.0-0.1) 02/08/21 09:31 Seg Neutrophils % 47.4 % (40.0-70.0) 02/08/21 09:31 Seg Neutrophils # 2.3 K/mm3 (1.8-7.7) 02/08/21 09:31 Sodium 138 mmol/L (137-145) 02/08/21 09:31 Potassium 4.4 mmol/L (3.6-5.0) D 02/08/21 09:31 Chloride 101.9 mmol/L (98-107) 02/08/21 09:31 Carbon Dioxide 29 mmol/L (22-30) 02/08/21 09:31 Anion Gap 12 mmol/L 02/08/21 09:31 BUN 11 mg/dL (7-17) 02/08/21 09:31 Creatinine 0.6 mg/dL (0.6-1.2) 02/08/21 09:31 Estimated GFR > 60 ml/min 02/08/21 09:31 BUN/Creatinine Ratio 18 % 02/08/21 09:31 Glucose 84 mg/dL (65-100) 02/08/21 09:31 POC Glucose 86 mg/dL (70-105) 02/05/21 19:39 Hemoglobin A1c 5.4 % (4-6) 02/08/21 09:31 Calcium 9.2 mg/dL (8.4-10.2) 02/08/21 09:31 Total Bilirubin 0.40 mg/dL (0.1-1.2) 02/08/21 09:31 AST 34 units/L (5-40) 02/08/21 09:31 ALT 42 units/L (7-56) 02/08/21 09:31 Alkaline Phosphatase 66 units/L (35-129) 02/08/21 09:31 Total Protein 6.9 g/dL (6.3-8.2) 02/08/21 09:31 Albumin 3.7 g/dL (3.9-5) L 02/08/21 09:31 Albumin/Globulin Ratio 1.2 % 02/08/21: Triglycerides 58 mg/dL (2-149) 02/08/21: Cholesterol 167 mg/dL (50-199) 02/08/21: LDL Cholesterol Direct 112 mg/dL (50-130) 02/08/21: HDL Cholesterol 48 mg/dL (40-59) 02/08/21: Cholesterol/HDL Ratio 3.47 % 02/08/21: TSH 0.931 mlU/mL (0.270-4.200) 02/08/21: Valproic Acid 81.8 ug/mL (50-100) 02/08/21: Last Vital Signs Temp 97.5 F L 02/09/21 22:00 Pulse 72 02/09/21 22:00 Resp 16 02/09/21 22:00 BP 161/87 02/09/21 22:00 Pulse Ox 100 02/09/21 22:00
[2021-02-10] MEDS: LIP THERAPY VASELINE TP PRN (09:56)
[2021-02-10] MEDS: HALOPERIDOL 1 MG TAB PO SCH (09:57)
[2021-02-10] MEDS: DIVALPROEX ER 500 MG TAB PO SCH ×2 (09:57→21:49)
[2021-02-10] MEDS: BENZTROPINE 1 MG TAB PO SCH ×2 (09:57→21:49)
[2021-02-10] MEDS: risperiDONE 1 MG TAB PO SCH ×2 (09:57→21:49)
[2021-02-10] MEDS: LISINOPRIL 10 MG TAB PO SCH (09:58)
[2021-02-10] MEDS: MELATONIN 5 MG TAB PO SCH (21:49)
[2021-02-10] MEDS: traZODone 100 MG TAB PO SCH (21:49)
--- NOTE | 2021-02-11 07:50 | Progress Note ---
Subjective Date of service: 02/11/21 Principal diagnosis: psychosis Subjective Comment: Psych Nurse: pt spent last evening in activity room watching television, she is appropriate on the unit, she continues to talk to herself, she is medication compliant, good appetite, reported feeling better, rested well during the night, slept for approximately 8hrs, no distress noted, will continue to monitor for safety. Psych Progress Patient seen this AM, talking to self constantly but not loud, pt reports not being too happy with her life and progress. SHe statse sshe have worked to have things going for her but nothings worked. 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 REVIEW OF SYSTEMS Constitutional: Negative for weight loss ENT: Negative for stridor Respiratory: Negative for cough or hemoptysis All other systems reviewed and are negative MENTAL STATUS EXAMINATION General Appearance and Behavior: Age appropriate, good hygiene, wearing appropriate clothes, good eye contact, cooperative, irritable Cooperation: Participating/engaged Psychomotor Behavior: unremarkable and within normal limits Mood: " not happy" Affect and affective range: congruent with mood Thought Process: illogical, Thought Content: obsessions, grandiosity Speech: Normal volume, Regular rate and rhythm, Intellectual Functioning: Average Suicidal Ideation: Denies SI Homicidal Ideation: Denies HI Impulse Control: Unimpaired Insight and Judgment: limited insight and judgment, Memory: imparied unable to recall incident leading to admission Attention: Normal, Orientation: Alert, oriented. Assessment and Plan - Patient Problems (1) Schizoaffective disorder Current Visit: Yes Status: Acute F25.9 Treatment Plan Pt started on Seroquel 100mg BID Patient admitted for inpatient psychiatric evaluation, medication adjustment and close monitoring The patient's behavior, mood, sleep and appetite will be closely monitored. Patient enrolled in individual and group therapeutic sessions and encouraged to attend. Patient provided with a safe and structured environment. Patient's physical health needs will be addressed by the Hospitalist. Hospitalist Consulted Labs including CBC, CMP, Lipid profile and Hemoglobin A1C levels ordered for baseline reference Valproic 81.8 Social Assessment will be completed and the [facility] [employer] [facility] will work with patient and family to ensure a suitable and safe disposition Continue current meds Usual Wellness [employer]/Preservation: The patient agreed on the treatment plan, understood the risk, benefit, alternative treatment, potential consequence of no treatment, and gave informed consent. Estimated days: 4 Post hospital care: primary care provider, psychiatric provider Assessment and Plan - Patient Problems (1) Schizoaffective disorder Current Visit: Yes Status: Acute Medications and Allergies Allergies Allergy/AdvReac Type Severity Reaction Status Date / Time olanzapine [From Zyprexa] Allergy Unknown Verified 01/19/21 01:57 Home Medications Medication Instructions Recorded Confirmed Last Taken Type ARIPiprazole [Abilify Maintena] 300 mg IM QMONTH 01/19/21 02/04/21 Unknown History Benztropine [Cogentin] 1 mg PO BID 01/19/21 02/04/[address] [DepaKOTE DR] 500 mg PO BID #30 tablet 01/19/21 02/04/21 Unknown Rx lisinopriL [Lisinopril] 10 mg PO QDAY 01/19/21 02/04/21 Unknown History risperiDONE [RisperDAL] 2 mg PO BID #60 tablet 01/19/21 02/04/21 Unknown Rx risperiDONE [RisperDAL] 3 mg PO QDAY 01/19/21 02/04/21 Unknown History Divalproex ER [DepaKOTE ER] 500 mg PO BID #60 tablet 01/22/21 02/04/21 Unknown Rx risperiDONE [RisperDAL] 1 mg PO TID #90 tablet 01/22/21 02/04/21 Unknown Rx Active Meds: Active Medications Benztropine Mesylate (Benztropine 1 Mg Tab) 1 mg PO BID [facility] Last Admin: 02/10/21 21:49 Dose: 1 mg Documented by: Divalproex Sodium (Divalproex Er 500 Mg Tab) 500 mg PO BID [facility] Last Admin: 02/10/21 21:49 Dose: 500 mg Documented by: Haloperidol (Haloperidol 5 Mg Tab) 5 mg PO Q6H PRN PRN Reason: Agitation Haloperidol (Haloperidol 1 Mg Tab) 0.5 mg PO DAILY [facility] Last Admin: 02/10/21 09:57 Dose: 0.5 mg Documented by: Hydrophilic Ointment (Lip Therapy Vaseline) 1 applic TP DIRECT PRN PRN Reason: Dry Lips Last Admin: 02/10/21 09:56 Dose: 1 applic Documented by: Lisinopril (Lisinopril 10 Mg Tab) 10 mg PO QDAY [facility] Last Admin: 02/10/21 09:58 Dose: 10 mg Documented by: Lorazepam (Lorazepam 2 Mg/Ml Vial) 2 mg IM Q6H PRN PRN Reason: Agitation Melatonin (Melatonin 5 Mg Tab) 5 mg PO QHS [facility] Last Admin: 02/10/21 21:49 Dose: 5 mg Documented by: Risperidone (Risperidone 1 Mg Tab) 2 mg PO BID [facility] Last Admin: 02/10/21 21:49 Dose: 2 mg Documented by: Trazodone HCl (Trazodone 100 Mg Tab) 100 mg PO QHS [facility] Last Admin: 02/10/21 21:49 Dose: 100 mg Documented by: Results - Results Labs/Vitals: Laboratory Last Values WBC 4.9 K/mm3 (4.5-11.0) 02/08/21 09:31 RBC 4.23 M/mm3 (3.65-5.03) 02/08/21 09:31 Hgb 11.3 gm/dl (10.1-14.3) 02/08/21 09:31 Hct 33.8 % (30.3-42.9) 02/08/21 09:31 MCV 80 fl (79-97) 02/08/21 09:31 MCH 27 pg (28-32) L 02/08/21 09:31 MCHC 33 % (30-34) 02/08/21 09:31 RDW 15.6 % (13.2-15.2) H 02/08/21 09:31 Plt Count 231 K/mm3 (140-440) 02/08/21 09:31 Lymph % (Auto) 38.7 % (13.4-35.0) H 02/08/21 09:31 [place] % (Auto) 9.3 % (0.0-7.3) H 02/08/21 09:31 Eos % (Auto) 3.1 % (0.0-4.3) 02/08/21 09:31 Baso % (Auto) 1.5 % (0.0-1.8) 02/08/21 09:31 Lymph # (Auto) 1.9 K/mm3 (1.2-5.4) 02/08/21 09:31 [place] # (Auto) 0.5 K/mm3 (0.0-0.8) 02/08/21 09:31 Eos # (Auto) 0.2 K/mm3 (0.0-0.4) 02/08/21 09:31 Baso # (Auto) 0.1 K/mm3 (0.0-0.1) 02/08/21 09:31 Seg Neutrophils % 47.4 % (40.0-70.0) 02/08/21 09:31 Seg Neutrophils # 2.3 K/mm3 (1.8-7.7) 02/08/21 09:31 Sodium 138 mmol/L (137-145) 02/08/21 09:31 Potassium 4.4 mmol/L (3.6-5.0) D 02/08/21 09:31 Chloride 101.9 mmol/L (98-107) 02/08/21 09:31 Carbon Dioxide 29 mmol/L (22-30) 02/08/21 09:31 Anion Gap 12 mmol/L 02/08/21 09:31 BUN 11 mg/dL (7-17) 02/08/21 09:31 Creatinine 0.6 mg/dL (0.6-1.2) 02/08/21 09:31 Estimated GFR > 60 ml/min 02/08/21 09:31 BUN/Creatinine Ratio 18 % 02/08/21 09:31 Glucose 84 mg/dL (65-100) 02/08/21 09:31 POC Glucose 86 mg/dL (70-105) 02/05/21 19:39 Hemoglobin A1c 5.4 % (4-6) 02/08/21 09:31 Calcium 9.2 mg/dL (8.4-10.2) 02/08/21 09:31 Total Bilirubin 0.40 mg/dL (0.1-1.2) 02/08/21 09:31 AST 34 units/L (5-40) 02/08/21 09:31 ALT 42 units/L (7-56) 02/08/21 09:31 Alkaline Phosphatase 66 units/L (35-129) 02/08/21 09:31 Total Protein 6.9 g/dL (6.3-8.2) 02/08/21 09:31 Albumin 3.7 g/dL (3.9-5) L 02/08/21 09:31 Albumin/Globulin Ratio 1.2 % 02/08/21 09:31 Triglycerides 58 mg/dL (2-149) 02/08/21 09:31 Cholesterol 167 mg/dL (50-199) 02/08/21 09:31 LDL Cholesterol Direct 112 mg/dL (50-130) 02/08/21 09:31 HDL Cholesterol 48 mg/dL (40-59) 02/08/21 09:31 Cholesterol/HDL Ratio 3.47 % 02/08/21 09:31 TSH 0.931 mlU/mL (0.270-4.200) 02/08/21 09:31 Valproic Acid 81.8 ug/mL (50-100) 02/08/21 09:31 Last Vital Signs Temp 97.6 F 02/10/21 19:39 Pulse 73 02/10/21 19:39 Resp 18 02/10/21 19:39 BP 118/56 02/10/21 19:39 Pulse Ox 99 02/10/21 19:39
[2021-02-11] MEDS: LISINOPRIL 10 MG TAB PO SCH (12:43)
[2021-02-11] MEDS: HALOPERIDOL 1 MG TAB PO SCH (12:44)
[2021-02-11] MEDS: DIVALPROEX ER 500 MG TAB PO SCH ×2 (12:44→21:36)
[2021-02-11] MEDS: BENZTROPINE 1 MG TAB PO SCH ×2 (12:45→21:36)
[2021-02-11] MEDS: QUEtiapine 25 MG TAB PO SCH ×2 (13:47→21:36)
--- NOTE | 2021-02-11 15:10 | Progress Note ---
Assessment and Plan - Patient Problems (1) HTN (hypertension) Current Visit: Yes Status: Acute Qualifiers: Hypertension type: essential hypertension Qualified Code(s): I10 - Essential (primary) hypertension Plan to address problem: Monitor BP q shift, continue medical management (2) Diabetes Current Visit: Yes Status: Acute Plan to address problem: Consistent carbohydrate diet, supportive care. (3) Obesity hypoventilation syndrome Current Visit: Yes Status: Acute Plan to address problem: Balanced diet, increased physical activity at discharge, Outpatient pulmonary F/U for sleep study. History Interval history: 45 YO Female with HTN, Diet Controlled-DM, Bipolar Disorder, Schizophrenia admitted to [facility] for Psychiatric stabilization. The patient was seen and evaluated in her room. Patient resting. No reported nursing events. Hospitalist Physical - Constitutional Vitals: Temp Pulse Resp BP Pulse Ox 97.7 F 81 16 133/76 100 02/11/21 09:59 02/11/21 12:43 02/11/21 09:59 02/11/21 12:43 02/11/21 09:59 General appearance: Present: no acute distress - EENT Eyes: Present: PERRL, EOM intact ENT: hearing intact - Neck Neck: Present: supple - Respiratory Respiratory: bilateral: CTA - Cardiovascular Rhythm: regular Heart Sounds: Present: S1 & S2 - Extremities Extremities: no ischemia Peripheral Pulses: within normal limits - Abdominal General gastrointestinal: soft, non-tender, non-distended - Integumentary Integumentary: Present: clear, dry - Psychiatric Psychiatric: cooperative - Neurologic Neurologic: CNII-XII intact Results - Labs CBC & Chem 7: 02/08/21 09:31 02/08/21 09:31 Labs: Laboratory Last Values WBC 4.9 K/mm3 (4.5-11.0) 02/08/21 09:31 RBC 4.23 M/mm3 (3.65-5.03) 02/08/21 09:31 Hgb 11.3 gm/dl (10.1-14.3) 02/08/21 09:31 Hct 33.8 % (30.3-42.9) 02/08/21 09:31 MCV 80 fl (79-97) 02/08/21 09:31 MCH 27 pg (28-32) L 02/08/21 09:31 MCHC 33 % (30-34) 02/08/21 09:31 RDW 15.6 % (13.2-15.2) H 02/08/21 09:31 Plt Count 231 K/mm3 (140-440) 02/08/21 09:31 Lymph % (Auto) 38.7 % (13.4-35.0) H 02/08/21 09:31 [place] % (Auto) 9.3 % (0.0-7.3) H 02/08/21 09:31 Eos % (Auto) 3.1 % (0.0-4.3) 02/08/21 09:31 Baso % (Auto) 1.5 % (0.0-1.8) 02/08/21 09:31 Lymph # (Auto) 1.9 K/mm3 (1.2-5.4) 02/08/21 09:31 [place] # (Auto) 0.5 K/mm3 (0.0-0.8) 02/08/21 09:31 Eos # (Auto) 0.2 K/mm3 (0.0-0.4) 02/08/21 09:31 Baso # (Auto) 0.1 K/mm3 (0.0-0.1) 02/08/21 09:31 Seg Neutrophils % 47.4 % (40.0-70.0) 02/08/21 09:31 Seg Neutrophils # 2.3 K/mm3 (1.8-7.7) 02/08/21 09:31 Sodium 138 mmol/L (137-145) 02/08/21 09:31 Potassium 4.4 mmol/L (3.6-5.0) D 02/08/21 09:31 Chloride 101.9 mmol/L (98-107) 02/08/21 09:31 Carbon Dioxide 29 mmol/L (22-30) 02/08/21 09:31 Anion Gap 12 mmol/L 02/08/21 09:31 BUN 11 mg/dL (7-17) 02/08/21 09:31 Creatinine 0.6 mg/dL (0.6-1.2) 02/08/21 09:31 Estimated GFR > 60 ml/min 02/08/21 09:31 BUN/Creatinine Ratio 18 % 02/08/21 09:31 Glucose 84 mg/dL (65-100) 02/08/21 09:31 POC Glucose 86 mg/dL (70-105) 02/05/21 19:39 Hemoglobin A1c 5.4 % (4-6) 02/08/21 09:31 Calcium 9.2 mg/dL (8.4-10.2) 02/08/21 09:31 Total Bilirubin 0.40 mg/dL (0.1-1.2) 02/08/21 09:31 AST 34 units/L (5-40) 02/08/21 09:31 ALT 42 units/L (7-56) 02/08/21 09:31 Alkaline Phosphatase 66 units/L (35-129) 02/08/21 09:31 Total Protein 6.9 g/dL (6.3-8.2) 02/08/21 09:31 Albumin 3.7 g/dL (3.9-5) L 02/08/21 09:31 Albumin/Globulin Ratio 1.2 % 02/08/21 09:31 Triglycerides 58 mg/dL (2-149) 02/08/21 09:31 Cholesterol 167 mg/dL (50-199) 02/08/21 09:31 LDL Cholesterol Direct 112 mg/dL (50-130) 02/08/21 09:31 HDL Cholesterol 48 mg/dL (40-59) 02/08/21 09:31 Cholesterol/HDL Ratio 3.47 % 02/08/21 09:31 TSH 0.931 mlU/mL (0.270-4.200) 02/08/21 09:31 Valproic Acid 81.8 ug/mL (50-100) 02/08/21 09:31 Stone/IV: Voiding Method Toilet Active Medications - Current Medications Current Medications: Generic Name Dose Route Start Last Admin Trade Name Freq PRN Reason Stop Dose Admin Benztropine Mesylate 1 mg 02/05/21 09:00 02/11/21 12:45 Benztropine 1 Mg Tab PO 1 mg BID [facility] Administration Divalproex Sodium 500 mg 02/08/21 22:00 02/11/21 12:44 Divalproex Er 500 Mg Tab PO 500 mg BID [facility] Administration Haloperidol 5 mg 02/04/21 23:22 Haloperidol 5 Mg Tab PO Q6H PRN Agitation Haloperidol 0.5 mg 02/09/21 11:00 02/11/21 12:44 Haloperidol 1 Mg Tab PO 0.5 mg DAILY [facility] Administration Hydrophilic Ointment 1 applic 02/07/21 12:40 02/10/21 09:56 Lip Therapy Vaseline TP 1 applic DIRECT PRN Administration Dry Lips Lisinopril 10 mg 02/05/21 09:00 02/11/21 12:43 Lisinopril 10 Mg Tab PO 10 mg QDAY [facility] Administration Lorazepam 2 mg 02/04/21 23:21 Lorazepam 2 Mg/Ml Vial IM Q6H PRN Agitation Melatonin 5 mg 02/08/21 22:00 02/10/21 21:49 Melatonin 5 Mg Tab PO 5 mg QHS MILAN Administration Quetiapine Fumarate 100 mg 02/11/21 10:00 02/11/21 13:47 Quetiapine 25 Mg Tab PO 100 mg BID MILAN Administration Trazodone HCl 100 mg 02/08/21 22:00 02/10/21 21:49 Trazodone 100 Mg Tab PO 100 mg QHS MILAN Administration
--- NOTE | 2021-02-11 15:12 | Progress Note ---
Assessment and Plan - Patient Problems (1) HTN (hypertension) Current Visit: Yes Status: Acute Qualifiers: Hypertension type: essential hypertension Qualified Code(s): I10 - Essential (primary) hypertension Plan to address problem: Monitor BP q shift, continue medical management (2) Diabetes Current Visit: Yes Status: Acute Plan to address problem: Consistent carbohydrate diet, supportive care. (3) Obesity hypoventilation syndrome Current Visit: Yes Status: Acute Plan to address problem: Balanced diet, increased physical activity at discharge, Outpatient pulmonary F/U for sleep study. History Interval history: 45 YO Female with HTN, Diet Controlled-DM, Bipolar Disorder, Schizophrenia admitted to [facility] for Psychiatric stabilization. The patient was seen and evaluated in her room. Patient resting. No reported nursing events. Hospitalist Physical - Constitutional Vitals: Temp Pulse Resp BP Pulse Ox 97.7 F 81 16 133/76 100 02/11/21 09:59 02/11/21 12:43 02/11/21 09:59 02/11/21 12:43 02/11/21 09:59 General appearance: Present: no acute distress, obese - EENT Eyes: Present: PERRL, EOM intact ENT: hearing intact - Neck Neck: Present: supple - Respiratory Respiratory effort: normal Respiratory: bilateral: CTA - Cardiovascular Rhythm: regular Heart Sounds: Present: S1 & S2 - Extremities Extremities: no ischemia Peripheral Pulses: within normal limits - Abdominal General gastrointestinal: soft, non-tender, non-distended - Integumentary Integumentary: Present: clear, warm, dry - Psychiatric Psychiatric: cooperative - Neurologic Neurologic: CNII-XII intact Results - Labs CBC & Chem 7: 02/08/21 09:31 02/08/21 09:31 Labs: Laboratory Last Values WBC 4.9 K/mm3 (4.5-11.0) 02/08/21 09:31 RBC 4.23 M/mm3 (3.65-5.03) 02/08/21 09:31 Hgb 11.3 gm/dl (10.1-14.3) 02/08/21 09:31 Hct 33.8 % (30.3-42.9) 02/08/21 09:31 MCV 80 fl (79-97) 02/08/21 09:31 MCH 27 pg (28-32) L 02/08/21 09:31 MCHC 33 % (30-34) 02/08/21 09:31 RDW 15.6 % (13.2-15.2) H 02/08/21 09:31 Plt Count 231 K/mm3 (140-440) 02/08/21 09:31 Lymph % (Auto) 38.7 % (13.4-35.0) H 02/08/21 09:31 [place] % (Auto) 9.3 % (0.0-7.3) H 02/08/21 09:31 Eos % (Auto) 3.1 % (0.0-4.3) 02/08/21 09:31 Baso % (Auto) 1.5 % (0.0-1.8) 02/08/21 09:31 Lymph # (Auto) 1.9 K/mm3 (1.2-5.4) 02/08/21 09:31 [place] # (Auto) 0.5 K/mm3 (0.0-0.8) 02/08/21 09: Eos # (Auto) 0.2 K/mm3 (0.0-0.4) 02/08/21 09:31 Baso # (Auto) 0.1 K/mm3 (0.0-0.1) 02/08/21 09:31 Seg Neutrophils % 47.4 % (40.0-70.0) 02/08/21 09: Seg Neutrophils # 2.3 K/mm3 (1.8-7.7) 02/08/21 09:31 Sodium 138 mmol/L (137-145) 02/08/21 09:31 Potassium 4.4 mmol/L (3.6-5.0) D 02/08/21 09:31 Chloride 101.9 mmol/L (98-107) 02/08/21 09:31 Carbon Dioxide 29 mmol/L (22-30) 02/08/21 09:31 Anion Gap 12 mmol/L 02/08/21 09:31 BUN 11 mg/dL (7-17) 02/08/21 09:31 Creatinine 0.6 mg/dL (0.6-1.2) 02/08/21 09:31 Estimated GFR > 60 ml/min 02/08/21 09:31 BUN/Creatinine Ratio 18 % 02/08/21 09:31 Glucose 84 mg/dL (65-100) 02/08/21 09:31 POC Glucose 86 mg/dL (70-105) 02/05/21 19:39 Hemoglobin A1c 5.4 % (4-6) 02/08/21 09:31 Calcium 9.2 mg/dL (8.4-10.2) 02/08/21 09:31 Total Bilirubin 0.40 mg/dL (0.1-1.2) 02/08/21 09:31 AST 34 units/L (5-40) 02/08/21 09:31 ALT 42 units/L (7-56) 02/08/21 09:31 Alkaline Phosphatase 66 units/L (35-129) 02/08/21 09:31 Total Protein 6.9 g/dL (6.3-8.2) 02/08/21 09:31 Albumin 3.7 g/dL (3.9-5) L 02/08/21 09:31 Albumin/Globulin Ratio 1.2 % 02/08/21 09:31 Triglycerides 58 mg/dL (2-149) 02/08/21 09:31 Cholesterol 167 mg/dL (50-199) 02/08/21 09:31 LDL Cholesterol Direct 112 mg/dL (50-130) 02/08/21 09:31 HDL Cholesterol 48 mg/dL (40-59) 02/08/21 09:31 Cholesterol/HDL Ratio 3.47 % 02/08/21 09:31 TSH 0.931 mlU/mL (0.270-4.200) 02/08/21 09:31 Valproic Acid 81.8 ug/mL (50-100) 02/08/21 09:31 Stone/IV: Voiding Method Toilet Active Medications - Current Medications Current Medications: Generic Name Dose Route Start Last Admin Trade Name Freq PRN Reason Stop Dose Admin Benztropine Mesylate 1 mg 02/05/21 09:00 02/11/21 12:45 Benztropine 1 Mg Tab PO 1 mg BID MILAN Administration Divalproex Sodium 500 mg 02/08/21 22:00 02/11/21 12:44 Divalproex Er 500 Mg Tab PO 500 mg BID MIL[facility] Administration Haloperidol 5 mg 02/04/21 23:22 Haloperidol 5 Mg Tab PO Q6H PRN Agitation Haloperidol 0.5 mg 02/09/21 11:00 02/11/21 12:44 Haloperidol 1 Mg Tab PO 0.5 mg DAILY [facility] Administration Hydrophilic Ointment 1 applic 02/07/21 12:40 02/10/21 09:56 Lip Therapy Vaseline TP 1 applic DIRECT PRN Administration Dry Lips Lisinopril 10 mg 02/05/21 09:00 02/11/21 12:43 Lisinopril 10 Mg Tab PO 10 mg QDAY MIL[facility] Administration Lorazepam 2 mg 02/04/21 23:21 Lorazepam 2 Mg/Ml Vial IM Q6H PRN Agitation Melatonin 5 mg 02/08/21 22:00 02/10/21 21:49 Melatonin 5 Mg Tab PO 5 mg QHS MILAN Administration Quetiapine Fumarate 100 mg 02/11/21 10:00 02/11/21 13:47 Quetiapine 25 Mg Tab PO 100 mg BID MIL[facility] Administration Trazodone HCl 100 mg 02/08/21 22:00 02/10/21 21:49 Trazodone 100 Mg Tab PO 100 mg QHS [facility] Administration
[2021-02-11] MEDS: MELATONIN 5 MG TAB PO SCH (21:36)
[2021-02-11] MEDS: traZODone 100 MG TAB PO SCH (21:36)
[2021-02-12] MEDS: DIVALPROEX ER 500 MG TAB PO SCH ×2 (09:43→21:59)
[2021-02-12] MEDS: HALOPERIDOL 1 MG TAB PO SCH (09:43)
[2021-02-12] MEDS: BENZTROPINE 1 MG TAB PO SCH ×2 (09:43→21:59)
[2021-02-12] MEDS: LISINOPRIL 10 MG TAB PO SCH (09:44)
[2021-02-12] MEDS: QUEtiapine 25 MG TAB PO SCH (09:57)
[2021-02-12] MEDS ORDERED: QUEtiapine 100 MG TAB PO SCH (10:00)
--- NOTE | 2021-02-12 14:45 | Progress Note ---
Subjective Date of service: 02/12/21 Principal diagnosis: psychosis Subjective Comment: Psych Nurse: Received patient at 1900 02/11. She was sitting quietly in the activity room talking to herself. She denies needs. Last evening the patient spent in the activity room continuing to talk to self. She has a flat affect and presents as mildly paranoid. Her appetite is good and she was medication compliant. She denies si/hi. Overnight the patient rested quietly and slept 8 hours. Will continue to monitor patient for safety. Psych Progress Patient in room talking to self, when i walked in, she asked who am I, I introduced myself and she does not remember talking to me prior. Patient says she does not want to talk to a psychiatrist either light or dark skin. I walked out REVIEW OF SYSTEMS Constitutional: Negative for weight loss ENT: Negative for stridor Respiratory: Negative for cough or hemoptysis All other systems reviewed and are negative MENTAL STATUS EXAMINATION General Appearance and Behavior: Age appropriate, good hygiene, wearing appropriate clothes, good eye contact, cooperative, irritable Cooperation: Participating/engaged Psychomotor Behavior: unremarkable and within normal limits Mood: " Leave me alone" Affect and affective range: dysthymic Thought Process: illogical, Thought Content: obsessions, loose associations grandiosity Speech: Normal volume, Regular rate and rhythm, Intellectual Functioning: Average Suicidal Ideation: Denies SI Homicidal Ideation: Denies HI Impulse Control: Unimpaired Insight and Judgment: limited insight and judgment, Memory: impaired unable to recall incident leading to admission Attention: Normal, Orientation: Alert, oriented. Assessment and Plan - Patient Problems (1) Schizoaffective disorder Current Visit: Yes Status: Acute F25.9 Treatment Plan Pt started on Seroquel 100mg BID Patient admitted for inpatient psychiatric evaluation, medication adjustment and close monitoring The patient's behavior, mood, sleep and appetite will be closely monitored. Patient enrolled in individual and group therapeutic sessions and encouraged to attend. Patient provided with a safe and structured environment. Patient's physical health needs will be addressed by the Hospitalist. Hospitalist Consulted Labs including CBC, CMP, Lipid profile and Hemoglobin A1C levels ordered for baseline reference Valproic 81.8 Social Assessment will be completed and the Hardboard Press Operator will work with patient and family to ensure a suitable and safe disposition Continue current meds Usual Wellness Rastafarian/Preservation: The patient agreed on the treatment plan, understood the risk, benefit, alternative treatment, potential consequence of no treatment, and gave informed consent. Estimated days: 4 Post hospital care: primary care provider, psychiatric provider Assessment and Plan - Patient Problems (1) Schizoaffective disorder Current Visit: Yes Status: Acute Medications and Allergies Allergies Allergy/AdvReac Type Severity Reaction Status Date / Time olanzapine [From Zyprexa] Allergy Unknown Verified 01/19/21 01:57 Home Medications Medication Instructions Recorded Confirmed Last Taken Type ARIPiprazole [Abilify Maintena] 300 mg IM QMONTH 01/19/21 02/04/21 Unknown History Benztropine [Cogentin] 1 mg PO BID 01/19/21 02/04/[address] [DepaKOTE DR] 500 mg PO BID #30 tablet 01/19/21 02/04/21 Unknown Rx lisinopriL [Lisinopril] 10 mg PO QDAY 01/19/21 02/04/21 Unknown History risperiDONE [RisperDAL] 2 mg PO BID #60 tablet 01/19/21 02/04/21 Unknown Rx risperiDONE [RisperDAL] 3 mg PO QDAY 01/19/21 02/04/21 Unknown History Divalproex ER [DepaKOTE ER] 500 mg PO BID #60 tablet 01/22/21 02/04/21 Unknown Rx risperiDONE [RisperDAL] 1 mg PO TID #90 tablet 01/22/21 02/04/21 Unknown Rx Active Meds: Active Medications Benztropine Mesylate (Benztropine 1 Mg Tab) 1 mg PO BID [facility] Last Admin: 02/11/21 21:36 Dose: 1 mg Documented by: Divalproex Sodium (Divalproex Er 500 Mg Tab) 500 mg PO BID [facility] Last Admin: 02/11/21 21:36 Dose: 500 mg Documented by: Haloperidol (Haloperidol 5 Mg Tab) 5 mg PO Q6H PRN PRN Reason: Agitation Haloperidol (Haloperidol 1 Mg Tab) 0.5 mg PO DAILY [facility] Last Admin: 02/11/21 12:44 Dose: 0.5 mg Documented by: Hydrophilic Ointment (Lip Therapy Vaseline) 1 applic TP DIRECT PRN PRN Reason: Dry Lips Last Admin: 02/10/21 09:56 Dose: 1 applic Documented by: Lisinopril (Lisinopril 10 Mg Tab) 10 mg PO QDAY [facility] Last Admin: 02/11/21 12:43 Dose: 10 mg Documented by: Lorazepam (Lorazepam 2 Mg/Ml Vial) 2 mg IM Q6H PRN PRN Reason: Agitation Melatonin (Melatonin 5 Mg Tab) 5 mg PO QHS [facility] Last Admin: 02/11/21 21:36 Dose: 5 mg Documented by: Quetiapine Fumarate (Quetiapine 25 Mg Tab) 100 mg PO BID [facility] Last Admin: 02/11/21 21:36 Dose: 100 mg Documented by: Quetiapine Fumarate (Quetiapine 100 Mg Tab) 100 mg PO BID [facility] Trazodone HCl (Trazodone 100 Mg Tab) 100 mg PO QHS [facility] Last Admin: 02/11/21 21:36 Dose: 100 mg Documented by: Results - Results Labs/Vitals: Laboratory Last Values WBC 4.9 K/mm3 (4.5-11.0) 02/08/21 09:31 RBC 4.23 M/mm3 (3.65-5.03) 02/08/21 09:31 Hgb 11.3 gm/dl (10.1-14.3) 02/08/21 09:31 Hct 33.8 % (30.3-42.9) 02/08/21 09:31 MCV 80 fl (79-97) 02/08/21 09:31 MCH 27 pg (28-32) L 02/08/21 09:31 MCHC 33 % (30-34) 02/08/21 09:31 RDW 15.6 % (13.2-15.2) H 02/08/21 09:31 Plt Count 231 K/mm3 (140-440) 02/08/21 09:31 Lymph % (Auto) 38.7 % (13.4-35.0) H 02/08/21 09:31 [place] % (Auto) 9.3 % (0.0-7.3) H 02/08/21 09:31 Eos % (Auto) 3.1 % (0.0-4.3) 02/08/21 09:31 Baso % (Auto) 1.5 % (0.0-1.8) 02/08/21 09:31 Lymph # (Auto) 1.9 K/mm3 (1.2-5.4) 02/08/21 09:31 [place] # (Auto) 0.5 K/mm3 (0.0-0.8) 02/08/21 09:31 Eos # (Auto) 0.2 K/mm3 (0.0-0.4) 02/08/21 09:31 Baso # (Auto) 0.1 K/mm3 (0.0-0.1) 02/08/21 09:31 Seg Neutrophils % 47.4 % (40.0-70.0) 02/08/21 09:31 Seg Neutrophils # 2.3 K/mm3 (1.8-7.7) 02/08/21 09:31 Sodium 138 mmol/L (137-145) 02/08/21 09:31 Potassium 4.4 mmol/L (3.6-5.0) D 02/08/21 09:31 Chloride 101.9 mmol/L (98-107) 02/08/21 09:31 Carbon Dioxide 29 mmol/L (22-30) 02/08/21 09:31 Anion Gap 12 mmol/L 02/08/21 09:31 BUN 11 mg/dL (7-17) 02/08/21 09:31 Creatinine 0.6 mg/dL (0.6-1.2) 02/08/21 09:31 Estimated GFR > 60 ml/min 02/08/21 09:31 BUN/Creatinine Ratio 18 % 02/08/21 09:31 Glucose 84 mg/dL (65-100) 02/08/21 09:31 POC Glucose 86 mg/dL (70-105) 02/05/21 19:39 Hemoglobin A1c 5.4 % (4-6) 02/08/21 09:31 Calcium 9.2 mg/dL (8.4-10.2) 02/08/21 09:31 Total Bilirubin 0.40 mg/dL (0.1-1.2) 02/08/21 09:31 AST 34 units/L (5-40) 02/08/21 09:31 ALT 42 units/L (7-56) 02/08/21 09:31 Alkaline Phosphatase 66 units/L (35-129) 02/08/21 09:31 Total Protein 6.9 g/dL (6.3-8.2) 02/08/21 09:31 Albumin 3.7 g/dL (3.9-5) L 02/08/21 09:31 Albumin/Globulin Ratio 1.2 % 02/08/21 09:31 Triglycerides 58 mg/dL (2-149) 02/08/21 09: Cholesterol 167 mg/dL (50-199) 02/08/21 09:31 LDL Cholesterol Direct 112 mg/dL (50-130) 02/08/21 09: HDL Cholesterol 48 mg/dL (40-59) 02/08/21 09: Cholesterol/HDL Ratio 3.47 % 02/08/21 09:31 TSH 0.931 mlU/mL (0.270-4.200) 02/08/21 09:31 Valproic Acid 81.8 ug/mL (50-100) 02/08/21 09:31 Last Vital Signs Temp 98.0 F 02/11/21 20:15 Pulse 78 02/11/21 20:15 Resp 18 02/11/21 20:15 BP 112/61 02/11/21 20:15 Pulse Ox 98 02/11/21 20:15
[2021-02-12] MEDS: MELATONIN 5 MG TAB PO SCH (21:59)
[2021-02-12] MEDS: traZODone 100 MG TAB PO SCH (22:00)
[2021-02-12] MEDS: QUEtiapine 200 MG TAB PO SCH (22:11)
[2021-02-13] MEDS: DIVALPROEX ER 500 MG TAB PO SCH ×2 (09:41→21:41)
[2021-02-13] MEDS: QUEtiapine 200 MG TAB PO SCH (09:41)
[2021-02-13] MEDS: HALOPERIDOL 1 MG TAB PO SCH (09:41)
[2021-02-13] MEDS: LISINOPRIL 10 MG TAB PO SCH (09:41)
[2021-02-13] MEDS: BENZTROPINE 1 MG TAB PO SCH ×2 (09:41→21:42)
[2021-02-13] MEDS ORDERED: QUEtiapine 200 MG TAB PO SCH (09:54)
--- NOTE | 2021-02-13 09:54 | Progress Note ---
Subjective Date of service: 02/13/21 Principal diagnosis: psychosis Subjective Comment: Psych Nurse: Pt receive in the [place] with flat affect. "I don't care," pt stated when investment underwriter introduce self to her as her nurse for the night. Observed with Auditory hallucinations responding to internal stimulus. No acute distress observed. Will continue to monitor. Psych Progress Patient seen in the room today, patient appears to be under now states that she does not need to be here. Patient states that she is to see her grandmother who is also a psychiatrist back in [place], but she does not know what to just do because [place] is a terrible, complains [place]ians drive terrible on the road, and treat black woman like they are crazy. Patient reports she can get better treatment from called mother, states that she does not really talk to self because she only speaks to God and then she began talking to herself again going back and forth compairing [place] and [place] REVIEW OF SYSTEMS Constitutional: Negative for weight loss ENT: Negative for stridor Respiratory: Negative for cough or hemoptysis All other systems reviewed and are negative MENTAL STATUS EXAMINATION General Appearance and Behavior: Age appropriate, good hygiene, wearing appropriate clothes, good eye contact, cooperative, irritable Cooperation: Participating/engaged Psychomotor Behavior: unremarkable and within normal limits Mood: " Leave me alone" Affect and affective range: dysthymic Thought Process: illogical, Thought Content: obsessions, loose associations grandiosity Speech: Normal volume, Regular rate and rhythm, Intellectual Functioning: Average Suicidal Ideation: Denies SI Homicidal Ideation: Denies HI Impulse Control: Unimpaired Insight and Judgment: limited insight and judgment, Memory: impaired unable to recall incident leading to admission Attention: Normal, Orientation: Alert, oriented. Assessment and Plan - Patient Problems (1) Schizoaffective disorder Current Visit: Yes Status: Acute F25.9 Treatment Plan Seroquel increased to 300mg BID Patient admitted for inpatient psychiatric evaluation, medication adjustment and close monitoring The patient's behavior, mood, sleep and appetite will be closely monitored. Patient enrolled in individual and group therapeutic sessions and encouraged to attend. Patient provided with a safe and structured environment. Patient's physical health needs will be addressed by the Hospitalist. Hospitalist Consulted Labs including CBC, CMP, Lipid profile and Hemoglobin A1C levels ordered for baseline reference Valproic 81.8 Social Assessment will be completed and the Medtronics Technician will work with sunny grimm and family to ensure a suitable and safe disposition Continue current meds Usual Wellness Druze/Preservation: The patient agreed on the treatment plan, understood the risk, benefit, alter [place] treatment, potential consequence of no treatment, and gave informed consent. Estimated days: 3 Post hospital care: primary care provider, psychiatric provider Assessment and Plan - Patient Problems (1) Schizoaffective disorder Current Visit: Yes Status: Acute Medications and Allergies Allergies Allergy/AdvReac Type Severity Reaction Status Date / Time olanzapine [From Zyprexa] Allergy Unknown Verified 01/19/21 01:57 Home Medications Medication Instructions Recorded Confirmed Last Taken Type ARIPiprazole [Abilify Maintena] 300 mg IM QMONTH 01/19/21 02/04/21 Unknown History Benztropine [Cogentin] 1 mg PO BID 01/19/21 02/04/[address] [DepaKOTE DR] 500 mg PO BID #30 tablet 01/19/21 02/04/21 Unknown Rx lisinopriL [Lisinopril] 10 mg PO QDAY 01/19/21 02/04/21 Unknown History risperiDONE [RisperDAL] 2 mg PO BID #60 tablet 01/19/21 02/04/21 Unknown Rx risperiDONE [RisperDAL] 3 mg PO QDAY 01/19/21 02/04/21 Unknown History Divalproex ER [DepaKOTE ER] 500 mg PO BID #60 tablet 01/22/21 02/04/21 Unknown Rx risperiDONE [RisperDAL] 1 mg PO TID #90 tablet 01/22/21 02/04/21 Unknown Rx Active Meds: Active Medications Benztropine Mesylate (Benztropine 1 Mg Tab) 1 mg PO BID [facility] Last Admin: 02/12/21 21:59 Dose: 1 mg Documented by: Divalproex Sodium (Divalproex Er 500 Mg Tab) 500 mg PO BID [facility] Last Admin: 02/12/21 21:59 Dose: 500 mg Documented by: Haloperidol (Haloperidol 5 Mg Tab) 5 mg PO Q6H PRN PRN Reason: Agitation Haloperidol (Haloperidol 1 Mg Tab) 0.5 mg PO DAILY [facility] Last Admin: 02/12/21 09:43 Dose: 0.5 mg Documented by: Hydrophilic Ointment (Lip Therapy Vaseline) 1 applic TP DIRECT PRN PRN Reason: Dry Lips Last Admin: 02/10/21 09:56 Dose: 1 applic Documented by: Lisinopril (Lisinopril 10 Mg Tab) 10 mg PO QDAY [facility] Last Admin: 02/12/21 09:44 Dose: 10 mg Documented by: Lorazepam (Lorazepam 2 Mg/Ml Vial) 2 mg IM Q6H PRN PRN Reason: Agitation Melatonin (Melatonin 5 Mg Tab) 5 mg PO QHS [facility] Last Admin: 02/12/21 21:59 Dose: 5 mg Documented by: Quetiapine Fumarate (Quetiapine 200 Mg Tab) 200 mg PO BID [facility] Last Admin: 02/12/21 22:11 Dose: 200 mg Documented by: Trazodone HCl (Trazodone 100 Mg Tab) 100 mg PO QHS [facility] Last Admin: 02/12/21 22:00 Dose: 100 mg Documented by: Results - Results Labs/Vitals: Laboratory Last Values WBC 4.9 K/mm3 (4.5-11.0) 02/08/21 09:31 RBC 4.23 M/mm3 (3.65-5.03) 02/08/21 09:31 Hgb 11.3 gm/dl (10.1-14.3) 02/08/21 09:31 Hct 33.8 % (30.3-42.9) 02/08/21 09:31 MCV 80 fl (79-97) 02/08/21 09:31 MCH 27 pg (28-32) L 02/08/21 09:31 MCHC 33 % (30-34) 02/08/21 09:31 RDW 15.6 % (13.2-15.2) H 02/08/21 09:31 Plt Count 231 K/mm3 (140-440) 02/08/21 09:31 Lymph % (Auto) 38.7 % (13.4-35.0) H 02/08/21 09:31 [place] % (Auto) 9.3 % (0.0-7.3) H 02/08/21 09:31 Eos % (Auto) 3.1 % (0.0-4.3) 02/08/21 09:31 Baso % (Auto) 1.5 % (0.0-1.8) 02/08/21 09:31 Lymph # (Auto) 1.9 K/mm3 (1.2-5.4) 02/08/21 09:31 [place] # (Auto) 0.5 K/mm3 (0.0-0.8) 02/08/21 09:31 Eos # (Auto) 0.2 K/mm3 (0.0-0.4) 02/08/21 09:31 Baso # (Auto) 0.1 K/mm3 (0.0-0.1) 02/08/21 09:31 Seg Neutrophils % 47.4 % (40.0-70.0) 02/08/21 09:31 Seg Neutrophils # 2.3 K/mm3 (1.8-7.7) 02/08/21 09:31 Sodium 138 mmol/L (137-145) 02/08/21 09:31 Potassium 4.4 mmol/L (3.6-5.0) D 02/08/21 09:31 Chloride 101.9 mmol/L (98-107) 02/08/21 09:31 Carbon Dioxide 29 mmol/L (22-30) 02/08/21 09:31 Anion Gap 12 mmol/L 02/08/21 09:31 BUN 11 mg/dL (7-17) 02/08/21 09:31 Creatinine 0.6 mg/dL (0.6-1.2) 02/08/21 09:31 Estimated GFR > 60 ml/min 02/08/21 09:31 BUN/Creatinine Ratio 18 % 02/08/21 09:31 Glucose 84 mg/dL (65-100) 02/08/21 09:31 POC Glucose 86 mg/dL (70-105) 02/05/21 19:39 Hemoglobin A1c 5.4 % (4-6) 02/08/21 09:31 Calcium 9.2 mg/dL (8.4-10.2) 02/08/21 09:31 Total Bilirubin 0.40 mg/dL (0.1-1.2) 02/08/21 09:31 AST 34 units/L (5-40) 02/08/21 09:31 ALT 42 units/L (7-56) 02/08/21 09:31 Alkaline Phosphatase 66 units/L (35-129) 02/08/21 09:31 Total Protein 6.9 g/dL (6.3-8.2) 02/08/21 09: Albumin 3.7 g/dL (3.9-5) L 02/08/21 09: Albumin/Globulin Ratio 1.2 % 02/08/21 09: Triglycerides 58 mg/dL (2-149) 02/08/21 09: Cholesterol 167 mg/dL (50-199) 02/08/21: LDL Cholesterol Direct 112 mg/dL (50-130) 02/08/21: HDL Cholesterol 48 mg/dL (40-59) 02/08/21: Cholesterol/HDL Ratio 3.47 % 02/08/21 09: TSH 0.931 mlU/mL (0.270-4.200) 02/08/21 09: Valproic Acid 81.8 ug/mL (50-100) 02/08/21 09:31 Last Vital Signs Temp 98.0 F 02/11/21 20:15 Pulse 78 02/11/21 20:15 Resp 18 02/11/21 20:15 BP 112/61 02/11/21 20:15 Pulse Ox 98 02/11/21 20:15
[2021-02-13] MEDS: MELATONIN 5 MG TAB PO SCH (21:41)
[2021-02-13] MEDS: traZODone 100 MG TAB PO SCH (21:41)
[2021-02-13] MEDS: QUEtiapine 100 MG TAB PO SCH (21:41)
--- NOTE | 2021-02-14 08:38 | Progress Note ---
Subjective Date of service: 02/14/21 Principal diagnosis: psychosis Subjective Comment: Psych Nurse: Patent received in dayroom, with flat affect, pt observed responding to auditory hallucinations, pt stated "I don't have anything to say to you maribeth" when this bond writer introduced self to patient as night nurse., no S/S of distress noted, will continue to monitor. Psych Progress Patient seen this AM, keeps talking about Brianna and having conversation with self. Patient seen verbally harassing another patient over the way she is eating. Patient states she does not want to talk. She appears irritable, though medication compliant but not engaging to interview and presents as withdrawn to self and responding to internal stimulus REVIEW OF SYSTEMS Constitutional: Negative for weight loss ENT: Negative for stridor Respiratory: Negative for cough or hemoptysis All other systems reviewed and are negative MENTAL STATUS EXAMINATION General Appearance and Behavior: Age appropriate, good hygiene, wearing appropriate clothes, good eye contact, cooperative, irritable Cooperation: Participating/engaged Psychomotor Behavior: unremarkable and within normal limits Mood: " Leave me alone" Affect and affective range: dysthymic Thought Process: illogical, Thought Content: obsessions, loose associations grandiosity Speech: Normal volume, Regular rate and rhythm, Intellectual Functioning: Average Suicidal Ideation: Denies SI Homicidal Ideation: Denies HI Impulse Control: Unimpaired Insight and Judgment: limited insight and judgment, Memory: impaired unable to recall incident leading to admission Attention: Normal, Orientation: Alert, oriented. Assessment and Plan - Patient Problems (1) Schizoaffective disorder Current Visit: Yes Status: Acute F25.9 Treatment Plan Seroquel increased to 300mg BID Patient admitted for inpatient psychiatric evaluation, medication adjustment and close monitoring The patient's behavior, mood, sleep and appetite will be closely monitored. Patient enrolled in individual and group therapeutic sessions and encouraged to attend. Patient provided with a safe and structured environment. Patient's physical health needs will be addressed by the Hospitalist. Hospitalist Consulted Labs including CBC, CMP, Lipid profile and Hemoglobin A1C levels ordered for baseline reference Valproic 81.8 Social Assessment will be completed and the Water Pollution Control Technician will work with patient and family to ensure a suitable and safe disposition Continue current meds Usual Wellness Lutheran/Preservation: The patient agreed on the treatment plan, understood the risk, benefit, alternative treatment, potential consequence of no treatment, and gave informed consent. Estimated days: 3 Post hospital care: primary care provider, psychiatric provider Assessment and Plan - Patient Problems (1) Schizoaffective disorder Current Visit: Yes Status: Acute Medications and Allergies Allergies Allergy/AdvReac Type Severity Reaction Status Date / Time olanzapine [From Zyprexa] Allergy Unknown Verified 01/19/21 01:57 Home Medications Medication Instructions Recorded Confirmed Last Taken Type ARIPiprazole [Abilify Maintena] 300 mg IM QMONTH 01/19/21 02/04/21 Unknown History Benztropine [Cogentin] 1 mg PO BID 01/19/21 02/04/[address] [DepaKOTE DR] 500 mg PO BID #30 tablet 01/19/21 02/04/21 Unknown Rx lisinopriL [Lisinopril] 10 mg PO QDAY 01/19/21 02/04/21 Unknown History risperiDONE [RisperDAL] 2 mg PO BID #60 tablet 01/19/21 02/04/21 Unknown Rx risperiDONE [RisperDAL] 3 mg PO QDAY 01/19/21 02/04/21 Unknown History Divalproex ER [DepaKOTE ER] 500 mg PO BID #60 tablet 01/22/21 02/04/21 Unknown Rx risperiDONE [RisperDAL] 1 mg PO TID #90 tablet 01/22/21 02/04/21 Unknown Rx Active Meds: Active Medications Benztropine Mesylate (Benztropine 1 Mg Tab) 1 mg PO BID [facility] Last Admin: 02/13/21 21:42 Dose: 1 mg Documented by: Divalproex Sodium (Divalproex Er 500 Mg Tab) 500 mg PO BID [facility] Last Admin: 02/13/21 21:41 Dose: 500 mg Documented by: Haloperidol (Haloperidol 5 Mg Tab) 5 mg PO Q6H PRN PRN Reason: Agitation Haloperidol (Haloperidol 1 Mg Tab) 0.5 mg PO DAILY [facility] Last Admin: 02/13/21 09:41 Dose: 0.5 mg Documented by: Hydrophilic Ointment (Lip Therapy Vaseline) 1 applic TP DIRECT PRN PRN Reason: Dry Lips Last Admin: 02/10/21 09:56 Dose: 1 applic Documented by: Lisinopril (Lisinopril 10 Mg Tab) 10 mg PO QDAY [facility] Last Admin: 02/13/21 09:41 Dose: 10 mg Documented by: Lorazepam (Lorazepam 2 Mg/Ml Vial) 2 mg IM Q6H PRN PRN Reason: Agitation Melatonin (Melatonin 5 Mg Tab) 5 mg PO QHS [facility] Last Admin: 02/13/21 21:41 Dose: 5 mg Documented by: Quetiapine Fumarate (Quetiapine 100 Mg Tab) 300 mg PO BID [facility] Last Admin: 02/13/21 21:41 Dose: 300 mg Documented by: Trazodone HCl (Trazodone 100 Mg Tab) 100 mg PO QHS [facility] Last Admin: 02/13/21 21:41 Dose: 100 mg Documented by: Results - Results Labs/Vitals: Laboratory Last Values WBC 4.9 K/mm3 (4.5-11.0) 02/08/21 09: RBC 4.23 M/mm3 (3.65-5.03) 02/08/21 09:31 Hgb 11.3 gm/dl (10.1-14.3) 02/08/21 09: Hct 33.8 % (30.3-42.9) 02/08/21 09: MCV 80 fl (79-97) 02/08/21 09:31 MCH 27 pg (28-32) L 02/08/21 09:31 MCHC 33 % (30-34) 02/08/21 09:31 RDW 15.6 % (13.2-15.2) H 02/08/21 09:31 Plt Count 231 K/mm3 (140-440) 02/08/21 09:31 Lymph % (Auto) 38.7 % (13.4-35.0) H 02/08/21 09:31 [place] % (Auto) 9.3 % (0.0-7.3) H 02/08/21 09:31 Eos % (Auto) 3.1 % (0.0-4.3) 02/08/21 09: Baso % (Auto) 1.5 % (0.0-1.8) 02/08/21 09: Lymph # (Auto) 1.9 K/mm3 (1.2-5.4) 02/08/21 09: [place] # (Auto) 0.5 K/mm3 (0.0-0.8) 02/08/21 09: Eos # (Auto) 0.2 K/mm3 (0.0-0.4) 02/08/21 09:31 Baso # (Auto) 0.1 K/mm3 (0.0-0.1) 02/08/21 09:31 Seg Neutrophils % 47.4 % (40.0-70.0) 02/08/21 09:31 Seg Neutrophils # 2.3 K/mm3 (1.8-7.7) 02/08/21 09:31 Sodium 138 mmol/L (137-145) 02/08/21 09:31 Potassium 4.4 mmol/L (3.6-5.0) D 02/08/21 09:31 Chloride 101.9 mmol/L (98-107) 02/08/21 09:31 Carbon Dioxide 29 mmol/L (22-30) 02/08/21 09:31 Anion Gap 12 mmol/L 02/08/21 09:31 BUN 11 mg/dL (7-17) 02/08/21 09:31 Creatinine 0.6 mg/dL (0.6-1.2) 02/08/21 09:31 Estimated GFR > 60 ml/min 02/08/21 09:31 BUN/Creatinine Ratio 18 % 02/08/21 09:31 Glucose 84 mg/dL (65-100) 02/08/21 09:31 POC Glucose 86 mg/dL (70-105) 02/05/21 19:39 Hemoglobin A1c 5.4 % (4-6) 02/08/21 09:31 Calcium 9.2 mg/dL (8.4-10.2) 02/08/21 09:31 Total Bilirubin 0.40 mg/dL (0.1-1.2) 02/08/21 09:31 AST 34 units/L (5-40) 02/08/21 09:31 ALT 42 units/L (7-56) 02/08/21 09:31 Alkaline Phosphatase 66 units/L (35-129) 02/08/21 09:31 Total Protein 6.9 g/dL (6.3-8.2) 02/08/21 09:31 Albumin 3.7 g/dL (3.9-5) L 02/08/21 09:31 Albumin/Globulin Ratio 1.2 % 02/08/21 09:31 Triglycerides 58 mg/dL (2-149) 02/08/21 09:31 Cholesterol 167 mg/dL (50-199) 02/08/21 09:31 LDL Cholesterol Direct 112 mg/dL (50-130) 02/08/21 09: HDL Cholesterol 48 mg/dL (40-59) 02/08/21 09:31 Cholesterol/HDL Ratio 3.47 % 02/08/21 09:31 TSH 0.931 mlU/mL (0.270-4.200) 02/08/21 09:31 Valproic Acid 81.8 ug/mL (50-100) 02/08/21 09:31 Last Vital Signs Temp 97.4 F L 02/13/21 08:28 Pulse 81 02/13/21 09:41 Resp 18 02/13/21 08:28 BP 150/74 02/13/21 09:41 Pulse Ox 97 02/13/21 08:28
[2021-02-14] MEDS: LISINOPRIL 10 MG TAB PO SCH (09:29)
[2021-02-14] MEDS: QUEtiapine 100 MG TAB PO SCH ×2 (09:29→21:44)
[2021-02-14] MEDS: HALOPERIDOL 1 MG TAB PO SCH (09:29)
[2021-02-14] MEDS: DIVALPROEX ER 500 MG TAB PO SCH ×2 (09:30→21:44)
[2021-02-14] MEDS: BENZTROPINE 1 MG TAB PO SCH ×2 (09:30→21:44)
[2021-02-14] MEDS: LIP THERAPY VASELINE TP PRN (09:43)
--- NOTE | 2021-02-14 20:38 | Progress Note ---
Assessment and Plan - Patient Problems (1) HTN (hypertension) Current Visit: Yes Status: Acute Qualifiers: Hypertension type: essential hypertension Qualified Code(s): I10 - Essential (primary) hypertension Plan to address problem: Monitor BP q shift, continue medical management (2) Diabetes Current Visit: Yes Status: Acute Plan to address problem: Consistent carbohydrate diet, supportive care. (3) Obesity hypoventilation syndrome Current Visit: Yes Status: Acute Plan to address problem: Balanced diet, increased physical activity at discharge, Outpatient pulmonary F/U for sleep study. History Interval history: 45 YO Female with HTN, Diet Controlled-DM, Bipolar Disorder, Schizophrenia admitted to [facility] for Psychiatric stabilization. The patient was seen and evaluated in her room. Patient resting. No reported nursing events. Hospitalist Physical - Constitutional Vitals: Temp Pulse Resp BP Pulse Ox 97.5 F L 89 18 139/74 99 02/14/21 08:52 02/14/21 09:29 02/14/21 08:52 02/14/21 09:29 02/14/21 08:52 General appearance: Present: no acute distress, obese - EENT Eyes: Present: PERRL, EOM intact ENT: hearing intact - Neck Neck: Present: supple - Respiratory Respiratory effort: normal Respiratory: bilateral: CTA - Cardiovascular Rhythm: regular Heart Sounds: Present: S1 & S2 - Extremities Extremities: no ischemia Peripheral Pulses: within normal limits - Abdominal General gastrointestinal: soft, non-tender, non-distended - Integumentary Integumentary: Present: clear, dry - Psychiatric Psychiatric: cooperative - Neurologic Neurologic: CNII-XII intact Results - Labs CBC & Chem 7: 02/08/21 09:31 02/08/21 09:31 Labs: Laboratory Last Values WBC 4.9 K/mm3 (4.5-11.0) 02/08/21 09:31 RBC 4.23 M/mm3 (3.65-5.03) 02/08/21 09:31 Hgb 11.3 gm/dl (10.1-14.3) 02/08/21 09:31 Hct 33.8 % (30.3-42.9) 02/08/21 09:31 MCV 80 fl (79-97) 02/08/21 09:31 MCH 27 pg (28-32) L 02/08/21 09:31 MCHC 33 % (30-34) 02/08/21 09:31 RDW 15.6 % (13.2-15.2) H 02/08/21 09:31 Plt Count 231 K/mm3 (140-440) 02/08/21 09:31 Lymph % (Auto) 38.7 % (13.4-35.0) H 02/08/21 09:31 [place] % (Auto) 9.3 % (0.0-7.3) H 02/08/21 09:31 Eos % (Auto) 3.1 % (0.0-4.3) 02/08/21 09:31 Baso % (Auto) 1.5 % (0.0-1.8) 02/08/21 09:31 Lymph # (Auto) 1.9 K/mm3 (1.2-5.4) 02/08/21 09:31 [place] # (Auto) 0.5 K/mm3 (0.0-0.8) 02/08/21 09:31 Eos # (Auto) 0.2 K/mm3 (0.0-0.4) 02/08/21 09:31 Baso # (Auto) 0.1 K/mm3 (0.0-0.1) 02/08/21 09:31 Seg Neutrophils % 47.4 % (40.0-70.0) 02/08/21 09: Seg Neutrophils # 2.3 K/mm3 (1.8-7.7) 02/08/21 09:31 Sodium 138 mmol/L (137-145) 02/08/21 09:31 Potassium 4.4 mmol/L (3.6-5.0) D 02/08/21 09:31 Chloride 101.9 mmol/L (98-107) 02/08/21 09:31 Carbon Dioxide 29 mmol/L (22-30) 02/08/21 09:31 Anion Gap 12 mmol/L 02/08/21 09:31 BUN 11 mg/dL (7-17) 02/08/21 09:31 Creatinine 0.6 mg/dL (0.6-1.2) 02/08/21 09:31 Estimated GFR > 60 ml/min 02/08/21 09:31 BUN/Creatinine Ratio 18 % 02/08/21 09:31 Glucose 84 mg/dL (65-100) 02/08/21 09:31 POC Glucose 86 mg/dL (70-105) 02/05/21 19:39 Hemoglobin A1c 5.4 % (4-6) 02/08/21 09:31 Calcium 9.2 mg/dL (8.4-10.2) 02/08/21 09:31 Total Bilirubin 0.40 mg/dL (0.1-1.2) 02/08/21 09:31 AST 34 units/L (5-40) 02/08/21 09:31 ALT 42 units/L (7-56) 02/08/21 09:31 Alkaline Phosphatase 66 units/L (35-129) 02/08/21 09:31 Total Protein 6.9 g/dL (6.3-8.2) 02/08/21 09:31 Albumin 3.7 g/dL (3.9-5) L 02/08/21 09:31 Albumin/Globulin Ratio 1.2 % 02/08/21 09:31 Triglycerides 58 mg/dL (2-149) 02/08/21 09:31 Cholesterol 167 mg/dL (50-199) 02/08/21 09:31 LDL Cholesterol Direct 112 mg/dL (50-130) 02/08/21 09:31 HDL Cholesterol 48 mg/dL (40-59) 02/08/21 09:31 Cholesterol/HDL Ratio 3.47 % 02/08/21 09:31 TSH 0.931 mlU/mL (0.270-4.200) 02/08/21 09:31 Valproic Acid 81.8 ug/mL (50-100) 02/08/21 09:31 Stone/IV: Voiding Method Toilet Active Medications - Current Medications Current Medications: Generic Name Dose Route Start Last Admin Trade Name Freq PRN Reason Stop Dose Admin Benztropine Mesylate 1 mg 02/05/21 09:00 02/14/21 09:30 Benztropine 1 Mg Tab PO 1 mg BID MILAN Administration Divalproex Sodium 500 mg 02/08/21 22:00 02/14/21 09:30 Divalproex Er 500 Mg Tab PO 500 mg BID MILAN Administration Haloperidol 5 mg 02/04/21 23:22 Haloperidol 5 Mg Tab PO Q6H PRN Agitation Haloperidol 0.5 mg 02/09/21 11:00 02/14/21 09:29 Haloperidol 1 Mg Tab PO 0.5 mg DAILY MILAN Administration Hydrophilic Ointment 1 applic 02/07/21 12:40 02/14/21 09:43 Lip Therapy Vaseline TP 1 applic DIRECT PRN Administration Dry Lips Lisinopril 10 mg 02/05/21 09:00 02/14/21 09:29 Lisinopril 10 Mg Tab PO 10 mg QDAY MILAN Administration Lorazepam 2 mg 02/04/21 23:21 Lorazepam 2 Mg/Ml Vial IM Q6H PRN Agitation Melatonin 5 mg 02/08/21 22:00 02/13/21 21:41 Melatonin 5 Mg Tab PO 5 mg QHS MILAN Administration Quetiapine Fumarate 300 mg 02/13/21 22:00 02/14/21 09:29 Quetiapine 100 Mg Tab PO 300 mg BID MILAN Administration Trazodone HCl 100 mg 02/08/21 22:00 02/13/21 21:41 Trazodone 100 Mg Tab PO 100 mg QHS MILAN Administration Nutrition/Malnutrition Assess - Dietary Evaluation Nutrition/Malnutrition Findings: Nutrition Notes Start: 02/14/21 09:57 Freq: Status: Active Protocol: Document 02/14/21 09:57 ALBERTO (Rec: 02/14/21 10:00 ALBERTO [id number]) Nutrition Notes Need for Assessment generated from: LOS Initial or Follow up Brief Note Other Pertinent Diagnosis Schizoaffective d/o, psychosis Current Diet Cardiac/Consistent CHO Height 5 ft 7 in Weight 137 kg [place] Body Weight (kg) 61.36 BMI 47.2 Weight Status Morbidly Obese Subjective/Other Information Pt screened for LOS. She has consumed 100% of meals since admission. Percent of energy/protein needs met: 100% energy and pro Burn Absent Trauma Absent Current % PO Good (75-100%) Minimum of two criteria No Is patient on ventilator? No Is Patient Ambulatory and/or Out of Bed Yes REE-([place]-ambulatory/OOB) [ 2655.419 NUTR.MSJOOB] Kcal/Kg value to use for calculation 13 Approximate Energy Requirements Using 1781 kcal/Kg Calculation Used for Recommendations Kcal/kg Additional Notes Pro needs 0.8-1g/kg adjBW: 79- 99g/day Fluid needs 1ml/kcal Nutrition Intervention Revisit per MD consult or patient Sign Off request:
--- NOTE | 2021-02-14 20:39 | Progress Note ---
Assessment and Plan - Patient Problems (1) HTN (hypertension) Current Visit: Yes Status: Acute Qualifiers: Hypertension type: essential hypertension Qualified Code(s): I10 - Essential (primary) hypertension Plan to address problem: Monitor BP q shift, continue medical management (2) Diabetes Current Visit: Yes Status: Acute Plan to address problem: Consistent carbohydrate diet, supportive care. (3) Obesity hypoventilation syndrome Current Visit: Yes Status: Acute Plan to address problem: Balanced diet, increased physical activity at discharge, Outpatient pulmonary F/U for sleep study. History Interval history: 45 YO Female with HTN, Diet Controlled-DM, Bipolar Disorder, Schizophrenia admitted to [facility] for Psychiatric stabilization. The patient was seen and evaluated in her room. Patient resting. No reported nursing events. Hospitalist Physical - Constitutional Vitals: Temp Pulse Resp BP Pulse Ox 97.5 F L 89 18 139/74 99 02/14/21 08:52 02/14/21 09:29 02/14/21 08:52 02/14/21 09:29 02/14/21 08:52 General appearance: Present: no acute distress, obese - EENT Eyes: Present: PERRL ENT: hearing intact - Neck Neck: Present: supple - Respiratory Respiratory effort: normal Respiratory: bilateral: CTA - Cardiovascular Rhythm: regular Heart Sounds: Present: S1 & S2 - Extremities Extremities: no ischemia - Abdominal General gastrointestinal: soft, non-tender, non-distended - Integumentary Integumentary: Present: clear - Psychiatric Psychiatric: cooperative - Neurologic Neurologic: CNII-XII intact Results - Labs CBC & Chem 7: 02/08/21 09:31 02/08/21 09:31 Labs: Laboratory Last Values WBC 4.9 K/mm3 (4.5-11.0) 02/08/21 09:31 RBC 4.23 M/mm3 (3.65-5.03) 02/08/21 09:31 Hgb 11.3 gm/dl (10.1-14.3) 02/08/21 09:31 Hct 33.8 % (30.3-42.9) 02/08/21 09:31 MCV 80 fl (79-97) 02/08/21 09:31 MCH 27 pg (28-32) L 02/08/21 09:31 MCHC 33 % (30-34) 02/08/21 09:31 RDW 15.6 % (13.2-15.2) H 02/08/21 09:31 Plt Count 231 K/mm3 (140-440) 02/08/21 09:31 Lymph % (Auto) 38.7 % (13.4-35.0) H 02/08/21 09:31 [place] % (Auto) 9.3 % (0.0-7.3) H 02/08/21 09:31 Eos % (Auto) 3.1 % (0.0-4.3) 02/08/21 09:31 Baso % (Auto) 1.5 % (0.0-1.8) 02/08/21 09:31 Lymph # (Auto) 1.9 K/mm3 (1.2-5.4) 02/08/21 09:31 [place] # (Auto) 0.5 K/mm3 (0.0-0.8) 02/08/21 09:31 Eos # (Auto) 0.2 K/mm3 (0.0-0.4) 02/08/21 09: Baso # (Auto) 0.1 K/mm3 (0.0-0.1) 02/08/21 09:31 Seg Neutrophils % 47.4 % (40.0-70.0) 02/08/21 09: Seg Neutrophils # 2.3 K/mm3 (1.8-7.7) 02/08/21 09:31 Sodium 138 mmol/L (137-145) 02/08/21 09:31 Potassium 4.4 mmol/L (3.6-5.0) D 02/08/21 09:31 Chloride 101.9 mmol/L (98-107) 02/08/21 09:31 Carbon Dioxide 29 mmol/L (22-30) 02/08/21 09:31 Anion Gap 12 mmol/L 02/08/21 09:31 BUN 11 mg/dL (7-17) 02/08/21 09:31 Creatinine 0.6 mg/dL (0.6-1.2) 02/08/21 09:31 Estimated GFR > 60 ml/min 02/08/21 09:31 BUN/Creatinine Ratio 18 % 02/08/21 09:31 Glucose 84 mg/dL (65-100) 02/08/21 09:31 POC Glucose 86 mg/dL (70-105) 02/05/21 19:39 Hemoglobin A1c 5.4 % (4-6) 02/08/21 09:31 Calcium 9.2 mg/dL (8.4-10.2) 02/08/21 09:31 Total Bilirubin 0.40 mg/dL (0.1-1.2) 02/08/21 09:31 AST 34 units/L (5-40) 02/08/21 09:31 ALT 42 units/L (7-56) 02/08/21 09:31 Alkaline Phosphatase 66 units/L (35-129) 02/08/21 09:31 Total Protein 6.9 g/dL (6.3-8.2) 02/08/21 09:31 Albumin 3.7 g/dL (3.9-5) L 02/08/21 09:31 Albumin/Globulin Ratio 1.2 % 02/08/21 09:31 Triglycerides 58 mg/dL (2-149) 02/08/21 09:31 Cholesterol 167 mg/dL (50-199) 02/08/21 09:31 LDL Cholesterol Direct 112 mg/dL (50-130) 02/08/21 09:31 HDL Cholesterol 48 mg/dL (40-59) 02/08/21 09:31 Cholesterol/HDL Ratio 3.47 % 02/08/21 09:31 TSH 0.931 mlU/mL (0.270-4.200) 02/08/21 09:31 Valproic Acid 81.8 ug/mL (50-100) 02/08/21 09:31 Stone/IV: Voiding Method Toilet Active Medications - Current Medications Current Medications: Generic Name Dose Route Start Last Admin Trade Name Freq PRN Reason Stop Dose Admin Benztropine Mesylate 1 mg 02/05/21 09:00 02/14/21 09:30 Benztropine 1 Mg Tab PO 1 mg BID MILAN Administration Divalproex Sodium 500 mg 02/08/21 22:00 02/14/21 09:30 Divalproex Er 500 Mg Tab PO 500 mg BID MILAN Administration Haloperidol 5 mg 02/04/21 23:22 Haloperidol 5 Mg Tab PO Q6H PRN Agitation Haloperidol 0.5 mg 02/09/21 11:00 02/14/21 09:29 Haloperidol 1 Mg Tab PO 0.5 mg DAILY MILAN Administration Hydrophilic Ointment 1 applic 02/07/21 12:40 02/14/21 09:43 Lip Therapy Vaseline TP 1 applic DIRECT PRN Administration Dry Lips Lisinopril 10 mg 02/05/21 09:00 02/14/21 09:29 Lisinopril 10 Mg Tab PO 10 mg QDAY MILAN Administration Lorazepam 2 mg 02/04/21 23:21 Lorazepam 2 Mg/Ml Vial IM Q6H PRN Agitation Melatonin 5 mg 02/08/21 22:00 02/13/21 21:41 Melatonin 5 Mg Tab PO 5 mg QHS MILAN Administration Quetiapine Fumarate 300 mg 02/13/21 22:00 02/14/21 09:29 Quetiapine 100 Mg Tab PO 300 mg BID MILAN Administration Trazodone HCl 100 mg 02/08/21 22:00 02/13/21 21:41 Trazodone 100 Mg Tab PO 100 mg QHS MILAN Administration Nutrition/Malnutrition Assess - Dietary Evaluation Nutrition/Malnutrition Findings: Nutrition Notes Start: 02/14/21 09:57 Freq: Status: Active Protocol: Document 02/14/21 09:57 ALBERTO (Rec: 02/14/21 10:00 ALBERTO [id number]) Nutrition Notes Need for Assessment generated from: LOS Initial or Follow up Brief Note Other Pertinent Diagnosis Schizoaffective d/o, psychosis Current Diet Cardiac/Consistent CHO Height 5 ft 7 in Weight 137 kg [place] Body Weight (kg) 61.36 BMI 47.2 Weight Status Morbidly Obese Subjective/Other Information Pt screened for LOS. She has consumed 100% of meals since admission. Percent of energy/protein needs met: 100% energy and pro Burn Absent Trauma Absent Current % PO Good (75-100%) Minimum of two criteria No Is patient on ventilator? No Is Patient Ambulatory and/or Out of Bed Yes [facility] [ 2655.419 NUTR.MSJOOB] Kcal/Kg value to use for calculation 13 Approximate Energy Requirements Using 1781 kcal/Kg Calculation Used for Recommendations Kcal/kg Additional Notes Pro needs 0.8-1g/kg adjBW: 79- 99g/day Fluid needs 1ml/kcal Nutrition Intervention Revisit per MD consult or patient Sign Off request:
[2021-02-14] MEDS: MELATONIN 5 MG TAB PO SCH (21:44)
[2021-02-14] MEDS: traZODone 100 MG TAB PO SCH (21:45)
--- NOTE | 2021-02-15 08:34 | Progress Note ---
Subjective Date of service: 02/15/21 Principal diagnosis: psychosis Subjective Comment: Psych Nurse: Last evening the patient spent part of her time in the activity room and part in her room. She is minimally interacting with others. She continues to talk to herself but presents as if she can focus more during conversation. She denies si/hi. Her appetite is good and she is medication compliant. Overnight she rested quietly. She slept 7 hours. Will continue to monitor patient for safety. Psych Progress Today patient states that she loves her self as well as does her self a lot in the mirror. Patient states that during the put on risperidone usually works best for her and wanting effective switches to Ge[place] p.o. Patient reports feeling ribera today but she feels much more stable as compared to yesterday and she apologized for prior behaviors. She states that she knows she has multiple psychiatric disorders including schizophrenia bipolar. Reason for continued acute inpatient psychiatric hospitalization: improved insight and judgment REVIEW OF SYSTEMS Constitutional: Negative for weight loss ENT: Negative for stridor Respiratory: Negative for cough or hemoptysis All other systems reviewed and are negative MENTAL STATUS EXAMINATION General Appearance and Behavior: Age appropriate, good hygiene, wearing appropriate clothes, good eye contact, cooperative, irritable Cooperation: Participating/engaged Psychomotor Behavior: unremarkable and within normal limits Mood: " Leave me alone" Affect and affective range: dysthymic Thought Process: illogical, Thought Content: obsessions, loose associations grandiosity Speech: Normal volume, Regular rate and rhythm, Intellectual Functioning: Average Suicidal Ideation: Denies SI Homicidal Ideation: Denies HI Impulse Control: Unimpaired Insight and Judgment: limited insight and judgment, Memory: impaired unable to recall incident leading to admission Attention: Normal, Orientation: Alert, oriented. Assessment and Plan - Patient Problems (1) Schizoaffective disorder Current Visit: Yes Status: Acute F25.9 Treatment Plan Seroquel increased to 300mg BID Patient admitted for inpatient psychiatric evaluation, medication adjustment and close monitoring The patient's behavior, mood, sleep and appetite will be closely monitored. Patient enrolled in individual and group therapeutic sessions and encouraged to attend. Patient provided with a safe and structured environment. Patient's physical health needs will be addressed by the Hospitalist. Hospitalist Consulted Labs including CBC, CMP, Lipid profile and Hemoglobin A1C levels ordered for baseline reference Valproic 81.8 Social Assessment will be completed and the County Program Technician will work with patient and family to ensure a suitable and safe disposition Continue current meds Usual Wellness Uatsdin/Preservation: The patient agreed on the treatment plan, understood the risk, benefit, alternative treatment, potential consequence of no treatment, and gave informed consent. Estimated days: 3 Post hospital care: primary care provider, psychiatric provider Assessment and Plan - Patient Problems (1) Schizoaffective disorder Current Visit: Yes Status: Acute Medications and Allergies Allergies Allergy/AdvReac Type Severity Reaction Status Date / Time olanzapine [From Zyprexa] Allergy Unknown Verified 01/19/21 01:57 Home Medications Medication Instructions Recorded Confirmed Last Taken Type ARIPiprazole [Abilify Maintena] 300 mg IM QMONTH 01/19/21 02/04/21 Unknown History Benztropine [Cogentin] 1 mg PO BID 01/19/21 02/04/[address] [DepaKOTE DR] 500 mg PO BID #30 tablet 01/19/21 02/04/21 Unknown Rx lisinopriL [Lisinopril] 10 mg PO QDAY 01/19/21 02/04/21 Unknown History risperiDONE [RisperDAL] 2 mg PO BID #60 tablet 01/19/21 02/04/21 Unknown Rx risperiDONE [RisperDAL] 3 mg PO QDAY 01/19/21 02/04/21 Unknown History Divalproex ER [DepaKOTE ER] 500 mg PO BID #60 tablet 01/22/21 02/04/21 Unknown Rx risperiDONE [RisperDAL] 1 mg PO TID #90 tablet 01/22/21 02/04/21 Unknown Rx Active Meds: Active Medications Benztropine Mesylate (Benztropine 1 Mg Tab) 1 mg PO BID [facility] Last Admin: 02/14/21 21:44 Dose: 1 mg Documented by: Divalproex Sodium (Divalproex Er 500 Mg Tab) 500 mg PO BID [facility] Last Admin: 02/14/21 21:44 Dose: 500 mg Documented by: Haloperidol (Haloperidol 5 Mg Tab) 5 mg PO Q6H PRN PRN Reason: Agitation Haloperidol (Haloperidol 1 Mg Tab) 0.5 mg PO DAILY [facility] Last Admin: 02/14/21 09:29 Dose: 0.5 mg Documented by: Hydrophilic Ointment (Lip Therapy Vaseline) 1 applic TP DIRECT PRN PRN Reason: Dry Lips Last Admin: 02/14/21 09:43 Dose: 1 applic Documented by: Lisinopril (Lisinopril 10 Mg Tab) 10 mg PO QDAY [facility] Last Admin: 02/14/21 09:29 Dose: 10 mg Documented by: Lorazepam (Lorazepam 2 Mg/Ml Vial) 2 mg IM Q6H PRN PRN Reason: Agitation Melatonin (Melatonin 5 Mg Tab) 5 mg PO QHS [facility] Last Admin: 02/14/21 21:44 Dose: 5 mg Documented by: Quetiapine Fumarate (Quetiapine 100 Mg Tab) 300 mg PO BID [facility] Last Admin: 02/14/21 21:44 Dose: 300 mg Documented by: Trazodone HCl (Trazodone 100 Mg Tab) 100 mg PO QHS [facility] Last Admin: 02/14/21 21:45 Dose: 100 mg Documented by: Results - Results Labs/Vitals: Laboratory Last Values WBC 4.9 K/mm3 (4.5-11.0) 02/08/21 09:31 RBC 4.23 M/mm3 (3.65-5.03) 02/08/21 09:31 Hgb 11.3 gm/dl (10.1-14.3) 02/08/21 09:31 Hct 33.8 % (30.3-42.9) 02/08/21 09:31 MCV 80 fl (79-97) 02/08/21 09:31 MCH 27 pg (28-32) L 02/08/21 09:31 MCHC 33 % (30-34) 02/08/21 09:31 RDW 15.6 % (13.2-15.2) H 02/08/21 09:31 Plt Count 231 K/mm3 (140-440) 02/08/21 09:31 Lymph % (Auto) 38.7 % (13.4-35.0) H 02/08/21 09:31 [place] % (Auto) 9.3 % (0.0-7.3) H 02/08/21 09:31 Eos % (Auto) 3.1 % (0.0-4.3) 02/08/21 09:31 Baso % (Auto) 1.5 % (0.0-1.8) 02/08/21 09:31 Lymph # (Auto) 1.9 K/mm3 (1.2-5.4) 02/08/21 09:31 [place] # (Auto) 0.5 K/mm3 (0.0-0.8) 02/08/21 09:31 Eos # (Auto) 0.2 K/mm3 (0.0-0.4) 02/08/21 09:31 Baso # (Auto) 0.1 K/mm3 (0.0-0.1) 02/08/21 09:31 Seg Neutrophils % 47.4 % (40.0-70.0) 02/08/21 09:31 Seg Neutrophils # 2.3 K/mm3 (1.8-7.7) 02/08/21 09:31 Sodium 138 mmol/L (137-145) 02/08/21 09:31 Potassium 4.4 mmol/L (3.6-5.0) D 02/08/21 09:31 Chloride 101.9 mmol/L (98-107) 02/08/21 09:31 Carbon Dioxide 29 mmol/L (22-30) 02/08/21 09:31 Anion Gap 12 mmol/L 02/08/21 09:31 BUN 11 mg/dL (7-17) 02/08/21 09:31 Creatinine 0.6 mg/dL (0.6-1.2) 02/08/21 09:31 Estimated GFR > 60 ml/min 02/08/21 09:31 BUN/Creatinine Ratio 18 % 02/08/21 09:31 Glucose 84 mg/dL (65-100) 02/08/21 09:31 POC Glucose 86 mg/dL (70-105) 02/05/21 19:39 Hemoglobin A1c 5.4 % (4-6) 02/08/21 09:31 Calcium 9.2 mg/dL (8.4-10.2) 02/08/21 09:31 Total Bilirubin 0.40 mg/dL (0.1-1.2) 02/08/21 09:31 AST 34 units/L (5-40) 02/08/21 09:31 ALT 42 units/L (7-56) 02/08/21 09:31 Alkaline Phosphatase 66 units/L (35-129) 02/08/21 09:31 Total Protein 6.9 g/dL (6.3-8.2) 02/08/21 09: Albumin 3.7 g/dL (3.9-5) L 02/08/21 09: Albumin/Globulin Ratio 1.2 % 02/08/21 09: Triglycerides 58 mg/dL (2-149) 02/08/21 09: Cholesterol 167 mg/dL (50-199) 02/08/21: LDL Cholesterol Direct 112 mg/dL (50-130) 02/08/21: HDL Cholesterol 48 mg/dL (40-59) 02/08/21: Cholesterol/HDL Ratio 3.47 % 02/08/21: TSH 0.931 mlU/mL (0.270-4.200) 02/08/21 09: Valproic Acid 81.8 ug/mL (50-100) 02/08/21 09:31 Last Vital Signs Temp 98.3 F 02/14/21 22:00 Pulse 83 02/14/21 22:00 Resp 20 02/14/21 22:00 BP 137/84 02/14/21 22:00 Pulse Ox 100 02/14/21 22:00
[2021-02-15] MEDS: QUEtiapine 100 MG TAB PO SCH ×2 (10:07→21:23)
[2021-02-15] MEDS: LISINOPRIL 10 MG TAB PO SCH (10:08)
[2021-02-15] MEDS: DIVALPROEX ER 500 MG TAB PO SCH ×2 (10:08→21:23)
[2021-02-15] MEDS: HALOPERIDOL 1 MG TAB PO SCH (10:08)
[2021-02-15] MEDS: BENZTROPINE 1 MG TAB PO SCH ×2 (10:09→21:24)
[2021-02-15] MEDS: LIP THERAPY VASELINE TP PRN ×2 (10:12→21:23)
[2021-02-15] MEDS: MELATONIN 5 MG TAB PO SCH (21:23)
[2021-02-15] MEDS: traZODone 100 MG TAB PO SCH (21:24)
--- NOTE | 2021-02-16 08:29 | Progress Note ---
Subjective Date of service: 02/16/21 Principal diagnosis: psychosis Subjective Comment: Psych Nurse: 1215 Pt. euthymic, congruent, talking less to herself, but paranoid and suspicious of her medications, she thinks that she is get too much medicine or her they are wrong. She was polite not talking smart, she used the word please while talking to this staff. Pt is med compliant and eats all her meals well 75-100%. Staff will continue to monitor. Psych Progress Patient reports doing okay this AM, says she feels a lot better, got some much more sleep and didnt have to wake up middle of the night. She reports speaking with the high school social studies tutor yesterday. Patient states she needs to be at a place [facility] [place] 10[place] and is able to get there herself by city bus pass. Reason for continued acute inpatient psychiatric hospitalization: improved insight and judgment REVIEW OF SYSTEMS Constitutional: Negative for weight loss ENT: Negative for stridor Respiratory: Negative for cough or hemoptysis All other systems reviewed and are negative MENTAL STATUS EXAMINATION General Appearance and Behavior: Age appropriate, good hygiene, wearing appropriate clothes, good eye contact, cooperative, irritable Cooperation: Participating/engaged Psychomotor Behavior: unremarkable and within normal limits Mood: "much better" Affect and affective range: dysthymic Thought Process: logical, Thought Content: internal stimilus reduced, improved reality Speech: Normal volume, Regular rate and rhythm, Intellectual Functioning: Average Suicidal Ideation: Denies SI Homicidal Ideation: Denies HI Impulse Control: Unimpaired Insight and Judgment: improved insight and judgment, Memory:improved short tterm memory Attention: Normal, Orientation: Alert, oriented. Assessment and Plan - Patient Problems (1) Schizoaffective disorder Current Visit: Yes Status: Acute F25.9 Treatment Plan Cotninue meds, plan to discharge safely Patient admitted for inpatient psychiatric evaluation, medication adjustment and close monitoring The patient's behavior, mood, sleep and appetite will be closely monitored. Patient enrolled in individual and group therapeutic sessions and encouraged to attend. Patient provided with a safe and structured environment. Patient's physical health needs will be addressed by the Hospitalist. Hospitalist Consulted Labs including CBC, CMP, Lipid profile and Hemoglobin A1C levels ordered for baseline reference Valproic 81.8 Social Assessment will be completed and the Statistical Engineer will work with patient and family to ensure a suitable and safe disposition Continue current meds Usual Wellness Jehovah'S Witness/Preservation: The patient agreed on the treatment plan, understood the risk, benefit, alternative treatment, potential consequence of no treatment, and gave informed consent. Estimated days: 3 Post hospital care: primary care provider, psychiatric provider Assessment and Plan - Patient Problems (1) Schizoaffective disorder Current Visit: Yes Status: Acute Medications and Allergies Allergies Allergy/AdvReac Type Severity Reaction Status Date / Time olanzapine [From Zyprexa] Allergy Unknown Verified 01/19/21 01:57 Home Medications Medication Instructions Recorded Confirmed Last Taken Type ARIPiprazole [Abilify Maintena] 300 mg IM QMONTH 01/19/21 02/04/21 Unknown History Benztropine [Cogentin] 1 mg PO BID 01/19/21 02/04/[address] [DepaKOTE DR] 500 mg PO BID #30 tablet 01/19/21 02/04/21 Unknown Rx lisinopriL [Lisinopril] 10 mg PO QDAY 01/19/21 02/04/21 Unknown History risperiDONE [RisperDAL] 2 mg PO BID #60 tablet 01/19/21 02/04/21 Unknown Rx risperiDONE [RisperDAL] 3 mg PO QDAY 01/19/21 02/04/21 Unknown History Divalproex ER [DepaKOTE ER] 500 mg PO BID #60 tablet 01/22/21 02/04/21 Unknown Rx risperiDONE [RisperDAL] 1 mg PO TID #90 tablet 01/22/21 02/04/21 Unknown Rx Active Meds: Active Medications Benztropine Mesylate (Benztropine 1 Mg Tab) 1 mg PO BID [facility] Last Admin: 02/15/21 21:24 Dose: 1 mg Documented by: Divalproex Sodium (Divalproex Er 500 Mg Tab) 500 mg PO BID [facility] Last Admin: 02/15/21 21:23 Dose: 500 mg Documented by: Haloperidol (Haloperidol 5 Mg Tab) 5 mg PO Q6H PRN PRN Reason: Agitation Haloperidol (Haloperidol 1 Mg Tab) 0.5 mg PO DAILY [facility] Last Admin: 02/15/21 10:08 Dose: 0.5 mg Documented by: Hydrophilic Ointment (Lip Therapy Vaseline) 1 applic TP DIRECT PRN PRN Reason: Dry Lips Last Admin: 02/15/21 21:23 Dose: 1 applic Documented by: Lisinopril (Lisinopril 10 Mg Tab) 10 mg PO QDAY [facility] Last Admin: 02/15/21 10:08 Dose: 10 mg Documented by: Lorazepam (Lorazepam 2 Mg/Ml Vial) 2 mg IM Q6H PRN PRN Reason: Agitation Melatonin (Melatonin 5 Mg Tab) 5 mg PO QHS [facility] Last Admin: 02/15/21 21:23 Dose: 5 mg Documented by: Quetiapine Fumarate (Quetiapine 100 Mg Tab) 300 mg PO BID [facility] Last Admin: 02/15/21 21:23 Dose: 300 mg Documented by: Trazodone HCl (Trazodone 100 Mg Tab) 100 mg PO QHS [facility] Last Admin: 02/15/21 21:24 Dose: 100 mg Documented by: Results - Results Labs/Vitals: Laboratory Last Values WBC 4.9 K/mm3 (4.5-11.0) 02/08/21 09:31 RBC 4.23 M/mm3 (3.65-5.03) 02/08/21 09:31 Hgb 11.3 gm/dl (10.1-14.3) 02/08/21 09:31 Hct 33.8 % (30.3-42.9) 02/08/21 09:31 MCV 80 fl (79-97) 02/08/21 09:31 MCH 27 pg (28-32) L 02/08/21 09:31 MCHC 33 % (30-34) 02/08/21 09:31 RDW 15.6 % (13.2-15.2) H 02/08/21 09:31 Plt Count 231 K/mm3 (140-440) 02/08/21 09:31 Lymph % (Auto) 38.7 % (13.4-35.0) H 02/08/21 09:31 [place] % (Auto) 9.3 % (0.0-7.3) H 02/08/21 09:31 Eos % (Auto) 3.1 % (0.0-4.3) 02/08/21 09:31 Baso % (Auto) 1.5 % (0.0-1.8) 02/08/21 09:31 Lymph # (Auto) 1.9 K/mm3 (1.2-5.4) 02/08/21 09:31 [place] # (Auto) 0.5 K/mm3 (0.0-0.8) 02/08/21 09:31 Eos # (Auto) 0.2 K/mm3 (0.0-0.4) 02/08/21 09:31 Baso # (Auto) 0.1 K/mm3 (0.0-0.1) 02/08/21 09:31 Seg Neutrophils % 47.4 % (40.0-70.0) 02/08/21 09:31 Seg Neutrophils # 2.3 K/mm3 (1.8-7.7) 02/08/21 09:31 Sodium 138 mmol/L (137-145) 02/08/21 09:31 Potassium 4.4 mmol/L (3.6-5.0) D 02/08/21 09:31 Chloride 101.9 mmol/L (98-107) 02/08/21 09:31 Carbon Dioxide 29 mmol/L (22-30) 02/08/21 09:31 Anion Gap 12 mmol/L 02/08/21 09:31 BUN 11 mg/dL (7-17) 02/08/21 09:31 Creatinine 0.6 mg/dL (0.6-1.2) 02/08/21 09:31 Estimated GFR > 60 ml/min 02/08/21 09:31 BUN/Creatinine Ratio 18 % 02/08/21 09:31 Glucose 84 mg/dL (65-100) 02/08/21 09:31 POC Glucose 86 mg/dL (70-105) 02/05/21 19:39 Hemoglobin A1c 5.4 % (4-6) 02/08/21 09:31 Calcium 9.2 mg/dL (8.4-10.2) 02/08/21 09:31 Total Bilirubin 0.40 mg/dL (0.1-1.2) 02/08/21 09:31 AST 34 units/L (5-40) 02/08/21 09:31 ALT 42 units/L (7-56) 02/08/21 09:31 Alkaline Phosphatase 66 units/L (35-129) 02/08/21 09:31 Total Protein 6.9 g/dL (6.3-8.2) 02/08/21 09:31 Albumin 3.7 g/dL (3.9-5) L 02/08/21 09:31 Albumin/Globulin Ratio 1.2 % 02/08/21 09:31 Triglycerides 58 mg/dL (2-149) 02/08/21 09:31 Cholesterol 167 mg/dL (50-199) 02/08/21 09:31 LDL Cholesterol Direct 112 mg/dL (50-130) 02/08/21 09:31 HDL Cholesterol 48 mg/dL (40-59) 02/08/21 09:31 Cholesterol/HDL Ratio 3.47 % 02/08/21 09:31 TSH 0.931 mlU/mL (0.270-4.200) 02/08/21 09:31 Valproic Acid 81.8 ug/mL (50-100) 02/08/21 09:31 Last Vital Signs Temp 98.2 F 02/15/21 19:57 Pulse 86 02/15/21 19:57 Resp 16 02/15/21 19:57 BP 131/71 02/15/21 19:57 Pulse Ox 96 02/15/21 19:57
[2021-02-16] MEDS: QUEtiapine 100 MG TAB PO SCH ×2 (11:19→21:36)
[2021-02-16] MEDS: LISINOPRIL 10 MG TAB PO SCH (11:20)
[2021-02-16] MEDS: DIVALPROEX ER 500 MG TAB PO SCH ×2 (11:21→21:36)
[2021-02-16] MEDS: HALOPERIDOL 1 MG TAB PO SCH (11:21)
[2021-02-16] MEDS: BENZTROPINE 1 MG TAB PO SCH ×2 (11:25→21:36)
[2021-02-16] MEDS: traZODone 100 MG TAB PO SCH (21:36)
[2021-02-16] MEDS: MELATONIN 5 MG TAB PO SCH (21:37)
--- NOTE | 2021-02-17 08:56 | Progress Note ---
Subjective Date of service: 02/17/21 Principal diagnosis: psychosis Subjective Comment: Psych Nurse: pt slept for approximately 2hrs plus, pt spent most of the night standing in front of the mirror talking to her self, no distress noted, will continue to monitor for safety. Psych Progress Patient reports sleeping well today, asked she needs to be switched to Geodon, and wants to be discharged that she has a court appt due today. Patient c ontinues to talk to self only in front of mirrors. Reason for continued acute inpatient psychiatric hospitalization: Will stop seroquel and start Geodon per pts preference to improve medication compliance REVIEW OF SYSTEMS Constitutional: Negative for weight loss ENT: Negative for stridor Respiratory: Negative for cough or hemoptysis All other systems reviewed and are negative MENTAL STATUS EXAMINATION General Appearance and Behavior: Age appropriate, good hygiene, wearing appropriate clothes, good eye contact, cooperative, irritable Cooperation: Participating/engaged Psychomotor Behavior: unremarkable and within normal limits Mood: "much better" Affect and affective range: dysthymic Thought Process: logical, Thought Content: internal stimilus reduced, improved reality Speech: Normal volume, Regular rate and rhythm, Intellectual Functioning: Average Suicidal Ideation: Denies SI Homicidal Ideation: Denies HI Impulse Control: Unimpaired Insight and Judgment: improved insight and judgment, Memory:improved short tterm memory Attention: Normal, Orientation: Alert, oriented. Assessment and Plan - Patient Problems (1) Schizoaffective disorder Current Visit: Yes Status: Acute F25.9 Treatment Plan Continue meds, plan to discharge safely Patient admitted for inpatient psychiatric evaluation, medication adjustment and close monitoring The patient's behavior, mood, sleep and appetite will be closely monitored. Patient enrolled in individual and group therapeutic sessions and encouraged to attend. Patient provided with a safe and structured environment. Patient's physical health needs will be addressed by the Hospitalist. Hospitalist Consulted Labs including CBC, CMP, Lipid profile and Hemoglobin A1C levels ordered for baseline reference Valproic 81.8 Social Assessment will be completed and the Knowledge Management Advisor will work with patient and family to ensure a suitable and safe disposition Continue current meds Usual Wellness Mormonism/Preservation: The patient agreed on the treatment plan, understood the risk, benefit, alternative treatment, potential consequence of no treatment, and gave informed consent. Estimated days: 3 Post hospital care: primary care provider, psychiatric provider Assessment and Plan - Patient Problems (1) Schizoaffective disorder Current Visit: Yes Status: Acute Medications and Allergies Allergies Allergy/AdvReac Type Severity Reaction Status Date / Time olanzapine [From Zyprexa] Allergy Unknown Verified 01/19/21 01:57 Home Medications Medication Instructions Recorded Confirmed Last Taken Type ARIPiprazole [Abilify Maintena] 300 mg IM QMONTH 01/19/21 02/04/21 Unknown History Benztropine [Cogentin] 1 mg PO BID 01/19/21 02/04/[address] [DepaKOTE DR] 500 mg PO BID #30 tablet 01/19/21 02/04/21 Unknown Rx lisinopriL [Lisinopril] 10 mg PO QDAY 01/19/21 02/04/21 Unknown History risperiDONE [RisperDAL] 2 mg PO BID #60 tablet 01/19/21 02/04/21 Unknown Rx risperiDONE [RisperDAL] 3 mg PO QDAY 01/19/21 02/04/21 Unknown History Divalproex ER [DepaKOTE ER] 500 mg PO BID #60 tablet 01/22/21 02/04/21 Unknown Rx risperiDONE [RisperDAL] 1 mg PO TID #90 tablet 01/22/21 02/04/21 Unknown Rx Active Meds: Active Medications Benztropine Mesylate (Benztropine 1 Mg Tab) 1 mg PO BID [facility] Last Admin: 02/16/21 21:36 Dose: 1 mg Documented by: Divalproex Sodium (Divalproex Er 500 Mg Tab) 500 mg PO BID [facility] Last Admin: 02/16/21 21:36 Dose: 500 mg Documented by: Haloperidol (Haloperidol 5 Mg Tab) 5 mg PO Q6H PRN PRN Reason: Agitation Haloperidol (Haloperidol 1 Mg Tab) 0.5 mg PO DAILY [facility] Last Admin: 02/16/21 11:21 Dose: 0.5 mg Documented by: Hydrophilic Ointment (Lip Therapy Vaseline) 1 applic TP DIRECT PRN PRN Reason: Dry Lips Last Admin: 02/15/21 21:23 Dose: 1 applic Documented by: Lisinopril (Lisinopril 10 Mg Tab) 10 mg PO QDAY [facility] Last Admin: 02/16/21 11:20 Dose: 10 mg Documented by: Lorazepam (Lorazepam 2 Mg/Ml Vial) 2 mg IM Q6H PRN PRN Reason: Agitation Melatonin (Melatonin 5 Mg Tab) 5 mg PO QHS [facility] Last Admin: 02/16/21 21:37 Dose: 5 mg Documented by: Quetiapine Fumarate (Quetiapine 100 Mg Tab) 300 mg PO BID [facility] Last Admin: 02/16/21 21:36 Dose: 300 mg Documented by: Trazodone HCl (Trazodone 100 Mg Tab) 100 mg PO QHS [facility] Last Admin: 02/16/21 21:36 Dose: 100 mg Documented by: Results - Results Labs/Vitals: Laboratory Last Values WBC 4.9 K/mm3 (4.5-11.0) 02/08/21 09:31 RBC 4.23 M/mm3 (3.65-5.03) 02/08/21 09:31 Hgb 11.3 gm/dl (10.1-14.3) 02/08/21 09:31 Hct 33.8 % (30.3-42.9) 02/08/21 09:31 MCV 80 fl (79-97) 02/08/21 09:31 MCH 27 pg (28-32) L 02/08/21 09:31 MCHC 33 % (30-34) 02/08/21 09:31 RDW 15.6 % (13.2-15.2) H 02/08/21 09:31 Plt Count 231 K/mm3 (140-440) 02/08/21 09:31 Lymph % (Auto) 38.7 % (13.4-35.0) H 02/08/21 09:31 [place] % (Auto) 9.3 % (0.0-7.3) H 02/08/21 09:31 Eos % (Auto) 3.1 % (0.0-4.3) 02/08/21 09:31 Baso % (Auto) 1.5 % (0.0-1.8) 02/08/21 09:31 Lymph # (Auto) 1.9 K/mm3 (1.2-5.4) 02/08/21 09:31 [place] # (Auto) 0.5 K/mm3 (0.0-0.8) 02/08/21 09:31 Eos # (Auto) 0.2 K/mm3 (0.0-0.4) 02/08/21 09:31 Baso # (Auto) 0.1 K/mm3 (0.0-0.1) 02/08/21 09:31 Seg Neutrophils % 47.4 % (40.0-70.0) 02/08/21 09:31 Seg Neutrophils # 2.3 K/mm3 (1.8-7.7) 02/08/21 09:31 Sodium 138 mmol/L (137-145) 02/08/21 09:31 Potassium 4.4 mmol/L (3.6-5.0) D 02/08/21 09:31 Chloride 101.9 mmol/L (98-107) 02/08/21 09:31 Carbon Dioxide 29 mmol/L (22-30) 02/08/21 09:31 Anion Gap 12 mmol/L 02/08/21 09:31 BUN 11 mg/dL (7-17) 02/08/21 09:31 Creatinine 0.6 mg/dL (0.6-1.2) 02/08/21 09:31 Estimated GFR > 60 ml/min 02/08/21 09:31 BUN/Creatinine Ratio 18 % 02/08/21 09:31 Glucose 84 mg/dL (65-100) 02/08/21 09:31 POC Glucose 86 mg/dL (70-105) 02/05/21 19:39 Hemoglobin A1c 5.4 % (4-6) 02/08/21 09:31 Calcium 9.2 mg/dL (8.4-10.2) 02/08/21 09:31 Total Bilirubin 0.40 mg/dL (0.1-1.2) 02/08/21 09:31 AST 34 units/L (5-40) 02/08/21 09:31 ALT 42 units/L (7-56) 02/08/21 09:31 Alkaline Phosphatase 66 units/L (35-129) 02/08/21 09:31 Total Protein 6.9 g/dL (6.3-8.2) 02/08/21 09:31 Albumin 3.7 g/dL (3.9-5) L 02/08/21 09:31 Albumin/Globulin Ratio 1.2 % 02/08/21 09:31 Triglycerides 58 mg/dL (2-149) 02/08/21 09:31 Cholesterol 167 mg/dL (50-199) 02/08/21 09:31 LDL Cholesterol Direct 112 mg/dL (50-130) 02/08/21 09:31 HDL Cholesterol 48 mg/dL (40-59) 02/08/21 09: Cholesterol/HDL Ratio 3.47 % 02/08/21 09:31 TSH 0.931 mlU/mL (0.270-4.200) 02/08/21 09: Valproic Acid 81.8 ug/mL (50-100) 02/08/21 09:31 Last Vital Signs Temp 97.6 F 02/16/21 22:00 Pulse 83 02/16/21 22:00 Resp 18 02/16/21 22:00 BP 111/55 02/16/21 22:00 Pulse Ox 99 02/16/21 22:00
[2021-02-17] MEDS: ZIPRASIDONE 40 MG CAP PO SCH ×2 (09:41→21:13)
[2021-02-17] MEDS: DIVALPROEX ER 500 MG TAB PO SCH ×2 (09:41→21:13)
[2021-02-17] MEDS: LISINOPRIL 10 MG TAB PO SCH (09:42)
[2021-02-17] MEDS: BENZTROPINE 1 MG TAB PO SCH ×2 (09:42→21:14)
[2021-02-17] MEDS: LIP THERAPY VASELINE TP PRN ×2 (09:44→21:12)
--- NOTE | 2021-02-17 11:55 | Discharge Summary ---
Providers - Providers Date of Admission: 02/04/21 23:41 Date of discharge: 02/17/21 Attending physician: FRANCISCO JAVIER GARRIDO MD 02/04/21 23:05 Consult to Physician [CONS] Routine Comment: Consulting Provider: CASEY JARRETT Physician Instructions: Manage existing conditions Reason For Exam: New admission Consultation/H & P Primary care physician: HEAD [employer] SAWYER Hospitalization Reason for admission: Psychopathological interference Condition: Good Hospital course: The patient was provided inpatient psychiatric treatment with safe and supportive environment, group/individual therapy, psychiatric medication, medication adjustment, adverse effect monitor, medical evaluation, medical treatment, social service assessment, social support meeting, placement assessment and psycho-education. The patients mood, cognition, behavior, motivation, compliance to treatment and appreciation on family/social support are improved and stabilized. At the time of discharge, the patient had no suicidal ideas, no homicidal ideas, no aggressive thoughts, no endangering behavior and no debilitating adverse effects. The patient agreed on the treatment plan, understood the risk, benefit, alternative treatment, potential consequence of no treatment, and gave informed consent. Over 35 minutes spent for discharge process, education and behavioral counselling Disposition: DC-01 TO HOME OR SELFCARE Allergies/Adverse Reactions: Allergies olanzapine [From Zyprexa] Allergy (Verified 01/19/21 01:57) Unknown Vital Signs: Last Vital Signs Temp 97.6 F 02/17/21 06:06 Pulse 90 02/17/21 09:42 Resp 18 02/17/21 06:06 BP 129/76 02/17/21 09:42 Pulse Ox 97 02/17/21 06:06 Last Lab: Laboratory Last Values WBC 4.9 K/mm3 (4.5-11.0) 02/08/21 09:31 RBC 4.23 M/mm3 (3.65-5.03) 02/08/21 09:31 Hgb 11.3 gm/dl (10.1-14.3) 02/08/21 09:31 Hct 33.8 % (30.3-42.9) 02/08/21 09:31 MCV 80 fl (79-97) 02/08/21 09:31 MCH 27 pg (28-32) L 02/08/21 09:31 MCHC 33 % (30-34) 02/08/21 09:31 RDW 15.6 % (13.2-15.2) H 02/08/21 09:31 Plt Count 231 K/mm3 (140-440) 02/08/21 09:31 Lymph % (Auto) 38.7 % (13.4-35.0) H 02/08/21 09:31 [place] % (Auto) 9.3 % (0.0-7.3) H 02/08/21 09:31 Eos % (Auto) 3.1 % (0.0-4.3) 02/08/21 09:31 Baso % (Auto) 1.5 % (0.0-1.8) 02/08/21 09:31 Lymph # (Auto) 1.9 K/mm3 (1.2-5.4) 02/08/21 09:31 [place] # (Auto) 0.5 K/mm3 (0.0-0.8) 02/08/21 09:31 Eos # (Auto) 0.2 K/mm3 (0.0-0.4) 02/08/21 09:31 Baso # (Auto) 0.1 K/mm3 (0.0-0.1) 02/08/21 09:31 Seg Neutrophils % 47.4 % (40.0-70.0) 02/08/21 09:31 Seg Neutrophils # 2.3 K/mm3 (1.8-7.7) 02/08/21 09:31 Sodium 138 mmol/L (137-145) 02/08/21 09:31 Potassium 4.4 mmol/L (3.6-5.0) D 02/08/21 09:31 Chloride 101.9 mmol/L (98-107) 02/08/21 09:31 Carbon Dioxide 29 mmol/L (22-30) 02/08/21 09:31 Anion Gap 12 mmol/L 02/08/21 09:31 BUN 11 mg/dL (7-17) 02/08/21 09:31 Creatinine 0.6 mg/dL (0.6-1.2) 02/08/21 09:31 Estimated GFR > 60 ml/min 02/08/21 09:31 BUN/Creatinine Ratio 18 % 02/08/21 09:31 Glucose 84 mg/dL (65-100) 02/08/21 09:31 POC Glucose 86 mg/dL (70-105) 02/05/21 19:39 Hemoglobin A1c 5.4 % (4-6) 02/08/21 09:31 Calcium 9.2 mg/dL (8.4-10.2) 02/08/21 09:31 Total Bilirubin 0.40 mg/dL (0.1-1.2) 02/08/21 09:31 AST 34 units/L (5-40) 02/08/21 09:31 ALT 42 units/L (7-56) 02/08/21 09:31 Alkaline Phosphatase 66 units/L (35-129) 02/08/21 09:31 Total Protein 6.9 g/dL (6.3-8.2) 02/08/21 09:31 Albumin 3.7 g/dL (3.9-5) L 02/08/21 09:31 Albumin/Globulin Ratio 1.2 % 02/08/21 09:31 Triglycerides 58 mg/dL (2-149) 02/08/21 09:31 Cholesterol 167 mg/dL (50-199) 02/08/21 09:31 LDL Cholesterol Direct 112 mg/dL (50-130) 02/08/21 09:31 HDL Cholesterol 48 mg/dL (40-59) 02/08/21 09:31 Cholesterol/HDL Ratio 3.47 % 02/08/21 09:31 TSH 0.931 mlU/mL (0.270-4.200) 02/08/21 09:31 Valproic Acid 81.8 ug/mL (50-100) 02/08/21 09:31 - Discharge Diagnoses (1) Schizoaffective disorder Status: Acute Core Measure Documentation - Palliative Care Palliative Care/ Comfort Measures: Not Applicable - Core Measures Any of the following diagnoses?: none Exam - Constitutional Vitals: Temp Pulse Resp BP Pulse Ox 97.6 F 90 18 129/76 97 02/17/21 06:06 02/17/21 09:42 02/17/21 06:06 02/17/21 09:42 02/17/21 06:06 General appearance: Present: no acute distress - EENT Eyes: Present: PERRL, EOM intact ENT: hearing intact, clear oral mucosa - Neck Neck: Present: supple, normal ROM - Respiratory Respiratory effort: normal - Abdominal Female genitourinary: Present: deferred - Integumentary Integumentary: Present: clear, warm Plan Activity: no restrictions Care Plan Goals: Goals: Maintain good and stable mental health. Plan of Treatment: The patient should be compliant with medications, not to use drugs and not to drink alcohol. The patient understands that if suicidal ideas, homicidal ideas, or any endangering thoughts arise, the patient should immediately seek for emergent assistance including but not limited to crisis hot line and emergency room. Follow up with outpatient Psychiatrist and PCP within 7 - 14 days of discharge. Follow up with: PRIMARY CARE,MD [Primary Care Provider] - 7 Days Prescriptions: Mirtazapine [Remeron 15mg TAB] 15 mg PO QHS #30 tablet Divalproex ER [Depakote ER] 500 mg PO BID #60 tablet Ziprasidone [Geodon] 80 mg PO BID #60 capsule
[2021-02-17] MEDS: MELATONIN 5 MG TAB PO SCH (21:14)
[2021-02-17] MEDS ORDERED: MIRTAZAPINE 15 MG TAB PO SCH (22:00)
[2021-02-18 08:20] VITALS: BP 119/62
--- NOTE | 2021-02-18 08:34 | Discharge Summary ---
Providers - Providers Date of Admission: 02/04/21 23:41 Date of discharge: 02/18/21 Attending physician: FRANCISCO JAVIER GARRIDO MD 02/04/21 23:05 Consult to Physician [CONS] Routine Comment: Consulting Provider: CASEY JARRETT Physician Instructions: Manage existing conditions Reason For Exam: New admission Consultation/H & P Primary care physician: MECHANICAL TECHNICIAN Hospitalization Reason for admission: psychosis Admitting Diagnosis: F20.9 - SCHIZOPHRENIA, UNSPECIFIED Disposition: DC-01 TO HOME OR SELFCARE Time spent for discharge: 38 Allergies/Adverse Reactions: Allergies olanzapine [From Zyprexa] Allergy (Verified 01/19/21 01:57) Unknown Vital Signs: Last Vital Signs Temp 98.4 F 02/18/21 08:12 Pulse 77 02/18/21 08:12 Resp 18 02/18/21 08:12 BP 119/62 02/18/21 08:12 Pulse Ox 100 02/18/21 08:12 Last Lab: Laboratory Last Values WBC 4.9 K/mm3 (4.5-11.0) 02/08/21 09:31 RBC 4.23 M/mm3 (3.65-5.03) 02/08/21 09:31 Hgb 11.3 gm/dl (10.1-14.3) 02/08/21 09:31 Hct 33.8 % (30.3-42.9) 02/08/21 09:31 MCV 80 fl (79-97) 02/08/21 09:31 MCH 27 pg (28-32) L 02/08/21 09:31 MCHC 33 % (30-34) 02/08/21 09:31 RDW 15.6 % (13.2-15.2) H 02/08/21 09:31 Plt Count 231 K/mm3 (140-440) 02/08/21 09:31 Lymph % (Auto) 38.7 % (13.4-35.0) H 02/08/21 09:31 [place] % (Auto) 9.3 % (0.0-7.3) H 02/08/21 09:31 Eos % (Auto) 3.1 % (0.0-4.3) 02/08/21 09:31 Baso % (Auto) 1.5 % (0.0-1.8) 02/08/21 09:31 Lymph # (Auto) 1.9 K/mm3 (1.2-5.4) 02/08/21 09:31 Canadian # (Auto) 0.5 K/mm3 (0.0-0.8) 02/08/21 09:31 Eos # (Auto) 0.2 K/mm3 (0.0-0.4) 02/08/21 09:31 Baso # (Auto) 0.1 K/mm3 (0.0-0.1) 02/08/21 09:31 Seg Neutrophils % 47.4 % (40.0-70.0) 02/08/21 09:31 Seg Neutrophils # 2.3 K/mm3 (1.8-7.7) 02/08/21 09:31 Sodium 138 mmol/L (137-145) 02/08/21 09:31 Potassium 4.4 mmol/L (3.6-5.0) D 02/08/21 09:31 Chloride 101.9 mmol/L (98-107) 02/08/21 09:31 Carbon Dioxide 29 mmol/L (22-30) 02/08/21 09:31 Anion Gap 12 mmol/L 02/08/21 09:31 BUN 11 mg/dL (7-17) 02/08/21 09:31 Creatinine 0.6 mg/dL (0.6-1.2) 02/08/21 09:31 Estimated GFR > 60 ml/min 02/08/21 09:31 BUN/Creatinine Ratio 18 % 02/08/21 09:31 Glucose 84 mg/dL (65-100) 02/08/21 09:31 POC Glucose 86 mg/dL (70-105) 02/05/21 19:39 Hemoglobin A1c 5.4 % (4-6) 02/08/21 09:31 Calcium 9.2 mg/dL (8.4-10.2) 02/08/21 09:31 Total Bilirubin 0.40 mg/dL (0.1-1.2) 02/08/21 09:31 AST 34 units/L (5-40) 02/08/21 09:31 ALT 42 units/L (7-56) 02/08/21 09:31 Alkaline Phosphatase 66 units/L (35-129) 02/08/21 09:31 Total Protein 6.9 g/dL (6.3-8.2) 02/08/21 09:31 Albumin 3.7 g/dL (3.9-5) L 02/08/21 09:31 Albumin/Globulin Ratio 1.2 % 02/08/21 09:31 Triglycerides 58 mg/dL (2-149) 02/08/21 09:31 Cholesterol 167 mg/dL (50-199) 02/08/21 09:31 LDL Cholesterol Direct 112 mg/dL (50-130) 02/08/21 09:31 HDL Cholesterol 48 mg/dL (40-59) 02/08/21 09:31 Cholesterol/HDL Ratio 3.47 % 02/08/21 09:31 TSH 0.931 mlU/mL (0.270-4.200) 02/08/21 09:31 Valproic Acid 81.8 ug/mL (50-100) 02/08/21 09:31 Core Measure Documentation - Palliative Care Palliative Care/ Comfort Measures: Not Applicable - Core Measures Any of the following diagnoses?: none Exam - Constitutional Vitals: Temp Pulse Resp BP Pulse Ox 98.4 F 77 18 119/62 100 02/18/21 08:12 02/18/21 08:12 02/18/21 08:12 02/18/21 08:12 02/18/21 08:12 General appearance: Present: no acute distress - EENT Eyes: Present: PERRL, EOM intact ENT: hearing intact, clear oral mucosa - Neck Neck: Present: normal ROM - Respiratory Respiratory effort: normal Plan Activity: advance as tolerated Weight Bearing Status: Weight Bear as Tolerated Care Plan Goals: Goals: Maintain good and stable mental health. Plan of Treatment: The patient should be compliant with medications, not to use drugs and not to drink alcohol. The patient understands that if suicidal ideas, homicidal ideas, or any endangering thoughts arise, the patient should immediately seek for emergent assistance including but not limited to crisis hot line and emergency room. Follow up with outpatient Psychiatrist and PCP within 7 - 14 days of discharge. Plan of Treatment: The patient should be compliant with medications, not to use drugs, and not to drink alcohol. The patient understands that if suicidal ideas, homicidal ideas or any endangering feeling arise, the patient should seek assistance including, but not limited to crisis hotline, and emergency room. Assessment: Schizophrenia Follow up with: PRIMARY CARE, [Primary Care Provider] - 7 Days Prescriptions: Mirtazapine [Remeron 15mg TAB] 15 mg PO QHS #30 tablet Divalproex ER [Depakote ER] 500 mg PO BID #60 tablet Ziprasidone [Geodon] 80 mg PO BID #60 capsule
[2021-02-18] MEDS: DIVALPROEX ER 500 MG TAB PO SCH (09:54)
[2021-02-18] MEDS: ZIPRASIDONE 40 MG CAP PO SCH (09:54)
[2021-02-18] MEDS: LISINOPRIL 10 MG TAB PO SCH (09:55)
[2021-02-18] MEDS: BENZTROPINE 1 MG TAB PO SCH (09:55)
== END 2021-02-18 14:03 | disposition home or self-care (01) | DRG 885 ==
LOC: 3A 16:05 → UNDOADMIN 16:05 → 5A 23:41
PROVIDERS: ADMIT Psychiatry & Neurology Psychiatry; ATTEND Psychiatry & Neurology Psychiatry
DX: F25.9 Schizoaffective disorder, unspecified (principal); Z68.42 Body mass index [BMI] 45.0-49.9, adult; E66.2 Morbid (severe) obesity with alveolar hypoventilation; I10 Essential (primary) hypertension; E11.9 Type 2 diabetes mellitus without complications; F31.9 Bipolar disorder, unspecified; F29 Unspecified psychosis not due to a substance or known physiological condition; Z88.8 Allergy status to other drugs, medicaments and biological substances; Z79.899 Other long term (current) drug therapy; Z82.49 Family history of ischemic heart disease and other diseases of the circulatory system; Z83.3 Family history of diabetes mellitus
CPT/HCPCS: 36415; 80048; 80053; 80061; 80164; 80307; 80320; 81001; 82962; 83036; 84443; 85025; 96372; G0378; G0480; J2060; J3486; J7030; U0003

== ENCOUNTER 2021-03-13 15:30 | Emergency (ER) | payer MEDICARE | END 2021-03-14 04:34 | LOC: ED 15:30 | DX: Z00.8 Encounter for other general examination (principal); Z53.21 Procedure and treatment not carried out due to patient leaving prior to being seen by health care provider ==

== ENCOUNTER 2021-03-15 13:50 | Emergency (ER) | payer MEDICARE | END 2021-03-15 16:59 | LOC: ED 13:50 ==